=== PATIENT | female | born 1940 | race Caucasian/White ===

== ENCOUNTER → 2016-12-16 | Outpatient (CLI) | payer OTHER ==
--- NOTE | 2016-12-17 14:11 | MAMMOGRAPHY REPORT ---
BILATERAL DIGITAL SCREENING MAMMOGRAM TOMOSYNTHESIS WITH CAD: 12/16/2016 CLINICAL HISTORY: Asymptomatic. Personal history of breast cancer. TECHNIQUE: Breast tomosynthesis in addition to standard 2D mammography was performed. Current study was also evaluated with a Computer Aided Detection (CAD) system. COMPARISON: Comparison is made to exams dated: 10/27/2015 mammogram, 10/24/2014 mammogram, 10/10/2013 ma mmogram, 10/09/2012 mammogram, 10/05/2011 mammogram, and 10/02/2010 mammogram. BREAST COMPOSITION: There are scattered areas of fibroglandular density in both breasts. FINDINGS: There is a nodular 4 mm focal asymmetry within the left upper outer quadrant, for which sp ot compression tomosynthesis views and possible breast ultrasound are recommended for further evaluat ion. Additionally, there are calcifications within the left superior breast for which magnification views are recommended for further evaluation. The remainder of both breasts are stable compared to prior exams, without suspicious masses, calcific ations, or areas of architectural distortion noted. There are stable postsurgical changes in the rig ht upper outer quadrant from prior lumpectomy, including stable density and architectural distortion at the lumpectomy bed. Other scattered bilateral benign-appearing calcifications are noted. IMPRESSION: ACR BI-RADS CATEGORY 0: INCOMPLETE EVALUATION: NEED ADDITIONAL IMAGING EVALUATION Left breast focal asymmetry and left breast calcifications, for which additional imaging evaluation i s recommended. The patient will be called to schedule an appointment. Approximately 10% of breast cancers are not detected with mammography. A negative mammographic report should not delay biopsy if a clinically suggestive mass is present. Xuan Moya M.D. ah/:12/16/2016 16:51:34 Supervisor Furnace Room: Elan BERNAL(Elfego)(M), [facility] letter sent: [facility] 0 BI-RADS Code: ACR BI-RADS Category 0: Incomplete Evaluation: Need Additional Imaging Evaluation
== END | disposition home or self-care (01) ==
LOC: C.MAMM 13:24
PROVIDERS: ATTEND Internal Medicine
DX: Z12.31 Encounter for screening mammogram for malignant neoplasm of breast (principal); Z85.3 Personal history of malignant neoplasm of breast; N64.89 Other specified disorders of breast; R92.1 Mammographic calcification found on diagnostic imaging of breast

== ENCOUNTER → 2016-12-16 | Outpatient (CLI) | payer OTHER ==
[2016-12-16 13:01] LABS: ALT/SGPT 37 U/L (12-78); AST/SGOT 21 U/L (15-37); BLOOD UREA NITROGEN 12 mg/dl (7-18); BUN/CREATININE RATIO 15.7 (10-20); CALCIUM 9.4 mg/dl (8.5-10.1); CARBON DIOXIDE 29 mmol/L (21-32); CHLORIDE 100 mmol/L (98-107); CHOLESTEROL 204 mg/dl (0-200); CREATININE 0.76 mg/dl (0.60-1.20); GLUCOSE 103 mg/dl (70-99); POTASSIUM 3.5 mmol/L (3.5-5.1); SODIUM 135 mmol/L (136-145); TRIGLYCERIDES 123 mg/dl (0-150); VERY LOW DENSITY LIPOPROT CALC 25 mg/dl
[2016-12-16 13:04] LABS: ALKALINE PHOSPHATASE 74 U/L (45-117); CHOLESTEROL/HDL RATIO 2.3; HDL CHOLESTEROL 87 mg/dl; LDL CHOLESTEROL CALCULATED 92 mg/dl
== END | disposition home or self-care (01) ==
LOC: C.LAB1850 11:45
PROVIDERS: ATTEND Physician Assistant
DX: E78.5 Hyperlipidemia, unspecified (principal)

== ENCOUNTER → 2016-12-27 | Outpatient (CLI) | payer OTHER ==
--- NOTE | 2016-12-27 13:35 | MAMMOGRAPHY REPORT ---
UNILATERAL LEFT DIGITAL DIAGNOSTIC MAMMOGRAM TOMOSYNTHESIS AND TARGETED LEFT ULTRASOUND: 12/27/2016 CLINICAL HISTORY: 76-year-old woman with a personal history of right breast cancer diagnosed in 1992, called back from screening mammography in the left breast for medial microcalcifications and a later al focal asymmetry. TECHNIQUE: Spot magnification the left cc and ML views, spot compression 2-D and tomosynthesis left cc and ML views were obtained. COMPARISON: Comparison is made to exams dated: 12/16/2016 mammogram - [facility], 10/27/2015 mammogram, 10/24/2014 mammogram, 10/09/2012 mammogram, and 10/02/2010 mammogram. BREAST COMPOSITION: There are scattered areas of fibroglandular density in the left breast. FINDINGS: There are several faint groupings of punctate microcalcifications in the medial, middle an d posterior one third of the breast. These are thought to project superiorly based on the spot magni fication ML view. There are also mild vascular calcifications of the left breast. When comparing th e current spot magnification views to prior available mammograms, a few of the faint groupings of pun ctate microcalcifications in the medial, posterior breast are new compared to prior mammograms, more medial/middle one third calcifications appear stable dating back to at least 10/10/2013 and likely , therefore likely benign. The new microcalcifications in the posterior breast are indetermi peewee, warranting definitive characterization with a stereotactic guided biopsy. The spot compression tomosynthesis views of the left breast demonstrate a 5.0 x 3.3 mm nodular asymme try in the lateral, middle one third of the breast on CC tomosynthesis slice 49/74. This is not as w ell seen on the spot compression MLO view but thought to project superiorly given the initial MLO vie w and tomosynthesis localizer bar on the CC view. Additional evaluation with ultrasound was performe d in the lateral left breast. Targeted ultrasound performed at the lateral left breast demonstrates a few mixed echogenicity ill-de fined hypoechoic nodular areas in the 5:00 axis, 3 cm from the nipple, measuring 5.4 x 3.1 x 4.5 mm, and 4:00 axis, 1 cm from the nipple measuring 2.8 x 2.3 x 3.1 mm. However there is a more well-defin ed hypoechoic solid mass with microlobulated margins in the 12:30 left breast, 3 cm from the nipple, measuring 4.1 x 2.9 x 2.3 mm. This well-defined solid masses thought to correlate with the mammogra phic finding and is indeterminate. Definitive characterization with ultrasound-guided core biopsy is recommended. IMPRESSION: ACR BI-RADS CATEGORY 4: SUSPICIOUS, TARGETED ULTRASOUND ACR BI-RADS CATEGORY 4: SUSPICIO US 1. Ultrasound-guided core biopsy is recommended for an indeterminate 4.1 mm solid microlobulated mas s in the 12:30 left breast, thought to correlate with a focal mammographic asymmetry. 2. Stereotactic guided biopsy is recommended for a new grouping of punctate microcalcifications in t he medial posterior left breast. 3. Pending pathology results from the ultrasound-guided and stereotactic guided left breast biopsies , further recommendations will be made regarding ill-defined mixed echogenicity hypoechoic areas in t he 4:00 and 5:00 axes of the left breast, also seen on ultrasound which could simply represent hetero geneous glandular tissue. These results and recommendations were discussed with the patient at the time of the exam. She tenta tively scheduled the left breast biopsies prior to leaving our department. Approximately 10% of breast cancers are not detected with mammography. A negative mammographic report should not delay biopsy if a clinically suggestive mass is present. Estefanía Greco M.D. ay/:12/27/2016 12:52:51 Director Of Diversity And Inclusion: Ambar FELICIANO)(Evelin), [facility] letter sent: Abnormal 4/5 BI-RADS Code: ACR BI-RADS Category 4: Suspicious Ultrasound BI-RADS: ACR BI-RADS Category 4: Suspici ous
== END | disposition home or self-care (01) ==
LOC: C.MAMM 08:52
PROVIDERS: ATTEND Internal Medicine
DX: R92.0 Mammographic microcalcification found on diagnostic imaging of breast (principal); N63.20 Unspecified lump in the left breast, unspecified quadrant

== ENCOUNTER → 2017-01-05 | Outpatient (CLI) | payer OTHER ==
--- NOTE | 2017-01-05 10:24 | Discharge Instructions ---
Discharge Instructions Procedure Procedure Date: Jan 05, 2017. Reason for visit: Left Calc/Core Bx Left Mass. Discharge Discharge Date: Jan 05, 2017. Discharge Diagnosis: post left breast breast ultrasound guided core biopsy of a mass in the 12:30 breast and calcifications in the superior breast Medications Restart Stopped Medication(s): May restart Aspirin tomorrow Instructions Activity Recommendations: Additional Limitations (see below) Return to School/Work: no limitations Recommended Home Diet: No Limitations Provider Instructions: ACTIVITY RECOMMENDATIONS: * No lifting, pushing, pulling or exercising the affected side for three days. RETURN TO SCHOOL/WORK: * You may return to work/school after the procedure, but do not perform any strenuous activities for 24 to 48 hours. MEDICATIONS: * Tylenol (two 325 mg) every four to six hours if needed for mild pain (if not allergic to Tylenol). DIET: * Resume previous diet. SPECIAL CARE INSTRUCTIONS: * Keep biopsy site dry for 24 hours. May shower after 24 hours, but do not soak (bathe) incision. * May remove Tegaderm (plastic patch) tomorrow AFTER showering. * Leave the steri-strips on for one week. Allow the steri-strips to fall off by themselves. If not off after one week, you may remove them. You may place a Bandaid crosswise over the strips, if desired. * Apply ice 10 minutes on and 10 minutes off as needed. * Wear a bra at bedtime to sleep more comfortably for 2-3 days. * Your referring physician should have the results after approximately 5 to 7 business days. * Call for unusual bleeding, fever, drainage, etc or if you have any questions call [phone] during normal business hours or after hours call Dr Greco, . FOLLOW UP VISIT: Follow-up with Referring Physician as scheduled. Simone Ewing Recommendations: Call your doctor if: * Temperature above 101 degrees * Pain not relieved by pain medicine ordered * There is increased drainage or redness from any incision * You have any unanswered questions or concerns. Your Doctors Instructions noted above were prepared by provider Estefanía Greco. Patient Signature Section: Patient Instructions Signature Page Janice Duncan Patient (or Guardian) Signature/Date: I have read and understand the instructions given to me by my caregivers. Caregiver/RN/Doctor Signature/Date: The above-named patient and/or guardian has received patient instructions on this date. + Original Patient Signature Page (only) stays with chart. Please make copy for patient.
--- NOTE | 2017-01-05 15:30 | MAMMOGRAPHY REPORT ---
THIS REPORT HAS BEEN AMENDED. STEREOTACTIC GUIDED BIOPSY LEFT BREAST: 01/05/2017 CLINICAL HISTORY: Indeterminate cluster of punctate microcalcifications in the approximate 11:00 post erior left breast. Patient presents for stereotactic biopsy. An ultrasound core biopsy was performe d during the same appointment for an indeterminate solid mass in the 12:30 left breast. COMPARISON: Comparison is made to exams dated: 12/27/2016 mammogram, 12/27/2016 ultrasound, 12/17/19 17 mammogram - [facility], 10/27/2015 mammogram, 10/24/2014 mammogram, and 10/10/2013 m ammogram. PATIENT CONSENT: After explaining the risks, benefits and alternatives of the procedure to the patien t, informed consent was obtained both verbally and in writing. Specific risks include: Bleeding, inf ection, puncture of adjacent structure, pain, nontarget biopsy, sampling error, metal allergy and med ication reaction. PROCEDURE DESCRIPTION: A time-out was performed and the left breast was confirmed as the site of biop sy. The patient was placed prone on the stereotactic biopsy table and the breast was placed in CC fro m above compression. A admission nurse image was obtained that demonstrated the clustered microcalcifications i n question. They are amenable to sterotactic biopsy. Then +15 and -15 stereo pair images were obta ined. The calcifications were targeted utilizing the coordinates obtained by the computer. The skin was prepped with Betadine. 1% Lidocaine with and without epinipherine was administered as local anest hesia. A small skin incision was made. Through the incision, the needle was inserted to the depth de termined by the computer. 9 samples were obtained using a [employer] 9-gauge vacuum-assisted biopsy device. The specimen radiograph demonstrated several dermatology sales representative microcalcifications, therefore, a metallic marker was placed at the biopsy site. There was no immediate complication. Hemostasis was a chieved after several minutes of manual compression. The samples were sent to pathology in a single appropriately labeled containers. Postprocedure CC and ML views of the left breast were obtained. There is a new dumbbell-shaped biop sy marker clip in the approximate 11:30 posterior left breast, denoting the site of the stereotactic biopsy. A ribbon-shaped biopsy marker clip is seen in the 12:30 to 1:00 anterior left breast, denoti ng the site of the biopsied mass seen on ultrasound. There is increased density in the superior and medial left breast, likely representing a combination of lidocaine administration and small amount of hematoma. No large focal area of postbiopsy hematoma is identified. IMPRESSION: STEREOTACTIC GUIDED BIOPSY 1. Status post left breast stereotactic guided biopsy of an indeterminate clustered microcalcificati ons in the 11:0011:30 posterior left breast, with a dumbbell shaped biopsy marker placed at the site . 2. An ultrasound guided core biopsy was performed during the same appointment for an indeterminate s olid appearing mass in the 12:30 left breast and a ribbon-shaped biopsy marker clip was placed at prashanth t site. The patient will receive notification of the biopsy results from referring physician. Estefanía Greco M.D. ay/:01/05/2017 13:47:30 Attending Technologist: Serenity FELICIANO)(Evelin), [facility] Garment Cutter: Dr. Estefanía Greco, [facility] AMENDMENT: 01/10/2017 Estefanía Greco M.D. The pathology result from the stereotactic guided biopsy of a small cluster of microcalcifications in the approximate 11:00 to 11:30 left breast yielded atypical ductal hyperplasia (ADH), columnar cell hyperplasia, microcalcifications associated with benign ductal elements. Negative for invasive carci noma. The pathology results are concordant with the imaging appearance. Pathology results from an ultrasound-guided core biopsy of a small 4 mm hypoechoic solid mass in the 12:30 left breast yielded infiltrating ductal carcinoma. Tumor measures up to 0.3 cm on core biopsy. [place] grade 1 of 3. The pathology results are concordant with the imaging appearance. Given the personal history of remote right-sided breast cancer and new findings of infiltrating cance r as well as atypia in the left breast, recommend further evaluation with a breast MRI prior to defin itive treatment of the left breast. There are also a few other very subtle groupings of microcalcifi cations in the left breast. Pending MRI results, patient may need additional spot magnification view s and possible stereotactic biopsy. letter sent: [facility] 0
--- NOTE | 2017-01-05 15:32 | MAMMOGRAPHY REPORT ---
UNILATERAL LEFT DIGITAL DIAGNOSTIC MAMMOGRAM TOMOSYNTHESIS: 01/05/2017 CLINICAL HISTORY: Status post stereotactic biopsy of a small cluster of punctate microcalcifications in the upper inner quadrant versus 12:00 left breast, and ultrasound guided core biopsy of an indeter minate solid mass in the 12:30 left breast identified on ultrasound. Please refer to the reports from left breast ultrasound-guided biopsy and left breast stereotactic bi opsy performed at the same time for full detail. IMPRESSION: POST PROCEDURE IMAGING FOR MARKER PLACEMENT Please refer to the reports from left breast ultrasound-guided biopsy and left breast stereotactic bi opsy performed at the same time for full detail. Approximately 10% of breast cancers are not detected with mammography. A negative mammographic report should not delay biopsy if a clinically suggestive mass is present. Estefanía Greco M.D. ay/:01/05/2017 10:28:48 Risk Compliance Manager: Serenity BERNAL(Elfego)(M), [facility] BI-RADS Code: Post Procedure Imaging For Marker Placement
--- NOTE | 2017-01-06 07:44 | MAMMOGRAPHY REPORT ---
ULTRASOUND GUIDED BIOPSY LEFT BREAST: 01/05/2017 CLINICAL HISTORY: Indeterminate 4 mm hypoechoic solid appearing mass identified in the 12:30 left martinez ast, thought to correlate with a newly visualized mammographic mass. Patient presents for ultrasound -guided core biopsy. A stereotactic guided biopsy was also performed for microcalcifications in the left breast during the same appointment and please refer to a separate report for full detail. Pedrito caceres has a history of remote right breast cancer. COMPARISON: Comparison is made to exams dated: 12/27/2016 mammogram, 12/27/2016 ultrasound, 12/17/19 17 mammogram - [facility], 10/27/2015 mammogram, 10/24/2014 mammogram, and 10/10/2013 m ammogram. PATIENT CONSENT: The procedure, risks and benefits were discussed with the patient and informed conse nt was obtained both verbally and in writing. Specific risks to this procedure include: bleeding, in fection, puncture of adjacent structure, nontarget biopsy, sampling error, pain, metal allergy and me dication reaction. PROCEDURE DESCRIPTION: A time out was performed and the left breast was agreed as the site of biopsy. The skin was prepped and draped in the usual sterile fashion. The 4 mm solid mass in the 12:30 left breast was chosen as the target for biopsy. Subcutaneous and intraparenchymal 1% buffered lidocaine, with and without epinephrine, was administered as local anesthesia. A skin incision was made. Throug h the incision, 4 samples were taken with a 14 gauge Achieve biopsy device. A ribbon shaped metallic marker was placed at the biopsy site. Hemostasis was achieved after manual compression. The patient t olerated the procedure well and there was no immediate complication. The samples were sent to the pa thology department in an appropriately labeled container. Postprocedure left cc and ML tomosynthesis images were obtained. A new ribbon-shaped biopsy marker c lip is identified in the 12:30 to 1:00 anterior left breast, aligning with the focal mammographic asy mmetry versus mammographic mass in question. A dumbbell shaped metallic biopsy marker and small amou nt of wispy hematoma in the medial left breast is also seen at the site of stereotactic biopsy perfor med during the same appointment. IMPRESSION: ULTRASOUND GUIDED BIOPSY 1. Status post ultrasound-guided core biopsy of a small, 4 mm solid-appearing mass in the 12:30 to 1 :00 left breast, with ribbon-shaped biopsy marker clip placed at the site. 2. Stereotactic guided biopsy was also performed in the approximate 12:00 left breast during the [facility] e appointment. Please refer to a separate report for full detail. The patient will receive notification of the biopsy results from her referring physician. Estefanía Greco M.D. ay/:01/05/2017 16:56:43 Attending Technologist: Serenity BERNAL(Elfego)(M), [facility] Sulfide Head Operator: Dr. Estefanía Greco, [facility]
== END | disposition home or self-care (01) ==
LOC: C.MAMM 08:48
PROVIDERS: ATTEND Internal Medicine
DX: N63.20 Unspecified lump in the left breast, unspecified quadrant (principal); R92.0 Mammographic microcalcification found on diagnostic imaging of breast; C50.912 Malignant neoplasm of unspecified site of left female breast; N60.92 Unspecified benign mammary dysplasia of left breast

== ENCOUNTER → 2017-01-31 | Outpatient (CLI) | payer OTHER ==
[~2017-01-31] MED LIST: ASPI81TA28 PO; ATOR-26 PO; BISO10TA14 PO; CHOL2000 PO; COEN100C7 PO; GLUC10007 PO; HYDR12.55 PO; MULT-506 PO; OMEG10007 PO; SPECCAP4 PO; TURM500C2 PO
--- NOTE | 2017-01-31 11:44 | DIAGNOSTIC IMAGING REPORT ---
PET/CT CLINICAL HISTORY: Bilateral breast cancer. COMPARISON STUDY: No priors. TECHNIQUE: One hour following the IV administration of 14.91 mCi of F-18 FDG, PET/CT examination was performed from the orbital meatal line through the bony pelvis. Noncontrast CT is performed for the purposes of anatomic correlation and attenuation correction. Note that this does not reflect a diagnostic CT examination. Images were reviewed on a separate [employer] independent workstation. Fused images were obtained. Standard uptake values reported are maximum values within the region of interest expressed in gm/mL. FINDINGS: PET FINDINGS: Head and neck: There is expected physiologic activity within the visualized brain parenchyma at the skull base and the salivary glands. Thorax: Evaluation of the thorax demonstrates expected physiologic myocardial activity. There is near complete fatty atrophy of the breast tissue. A small focus of scarring is suggested in the right breast on image #69. This was not demonstrably FDG avid. No FDG avid mass lesion is identified in either breast. There are no FDG avid or pathologically enlarged axillary or internal mammary lymph nodes. Abdomen and pelvis: There is expected activity within the liver, spleen, kidneys, renal collecting system, and bladder. Low-level bowel activity is likely within physical limits. Unenhanced CT images: The partially visualized brain parenchyma the skull base is normal in appearance. The visualized paranasal sinuses are clear. The mastoid air cells are well pneumatized. The salivary and thyroid glands are within normal limits. No cervical lymphadenopathy is seen. The thoracic aorta is normal in caliber. The heart is top normal in size and there is trace pericardial fluid. A small hiatal hernia is noted. No airspace consolidation or pleural effusion is identified. No concerning pulmonary lesion is seen. No mediastinal, hilar, or axillary lymphadenopathy is identified. A 1.8 cm cyst is identified in the right hepatic lobe. The unenhanced liver is otherwise normal in appearance. The unenhanced gallbladder, spleen, adrenal glands, pancreas, and kidneys are grossly normal. Excreted contrast is present within the renal collecting system bilaterally. The abdominal aorta is normal in caliber noting scattered foci of atherosclerotic calcification. There is no bowel obstruction. A duodenal diverticulum is incidentally noted. Mild colonic fecal retention is observed. There is no abdominal, pelvic, or inguinal lymphadenopathy. The bladder is partially decompressed and filled with excreted contrast. Calcified uterine fibroids are observed. No adnexal lesion is seen. The skeletal structures are osteopenic. No lytic or blastic lesion is identified. IMPRESSION: 1. There is no evidence of FDG avid metastatic disease. 2. No FDG avid lesion is identified in either breast. 3. Scarring is suggested in the right breast. Correlation with the patient's surgical history will be required. 4. The lungs are clear. Electronically signed by: Bernardo Garces M.D. 01/31/2017 11:42 AM Dictated Date/Time: 01/31/2017 11:11 AM
== END | disposition home or self-care (01) ==
LOC: C.PET 08:36
PROVIDERS: ATTEND Internal Medicine Hematology & Oncology
DX: C50.012 Malignant neoplasm of nipple and areola, left female breast (principal)

== ENCOUNTER → 2017-01-31 | Outpatient (CLI) | payer OTHER ==
[~2017-01-31] MED LIST changes: +GADAVIST IV PRN
--- NOTE | 2017-02-01 15:09 | MAMMOGRAPHY REPORT ---
BREAST MRI OF BOTH BREASTS : 01/31/2017 CLINICAL HISTORY: 76-year-old woman with a remote history of right breast cancer status post breast c onservation treatment, recently diagnosed left breast infiltrating ductal carcinoma and atypical duct al hyperplasia on ultrasound-guided and stereotactic guided core needle biopsies. Patient presents f or preoperative assessment of both breasts. COMPARISON: Comparison is made to exams dated: 01/05/2017 ultrasound biopsy, 01/05/2017 stereotactic b iopsy, 12/27/2016 mammogram, 12/27/2016 ultrasound, 12/16/2016 mammogram - [facility], and 10/27/2015 mammogram. TECHNIQUE: Using a 1.5 Mary magnet and dedicated breast coil, multisequence axial images were obtain ed through the breasts. After uneventful IV administration of 8.5 mL of Gadavist, dynamic multiphase contrast-enhanced axial images, and sagittal postcontrast were obtained. Temporal subtraction axial images and 3-D MIP images are provided. Everything was then reviewed on a 3-D workstation, [employer]. FINDINGS: Right breast: There is no significant background parenchymal enhancement. There is expected nonenhan cing architectural distortion in the upper outer posterior right breast at the site of prior lumpecto my. There is a single focal area of linear non-mass enhancement in the right inferior anterior breas t approximate 7:00 axis measuring 18 mm in AP dimension (sagittal page 113/140, axial page 91-92/116) , with associated persistent kinetics and no significant associated T2 signal hyperintensity. A slig htly irregular focus of enhancement is seen in the left 11:00 anterior right breast measuring 4.4 x 3 .0 x 5.5 mm (sagittal page 110/140, axial page 75/116), with associated persistent and plateau kineti cs. No significant T2 signal hyperintensity. Given that these are the only 2 enhancing lesions in t he right breast, targeted second look ultrasound with possible ultrasound-guided core biopsy is recom mended. The right breast retromammary fat is intact. No suspicious right axillary lymphadenopathy. Left breast: There is mild background parenchymal enhancement of the left breast, with several conspi cuous enhancing foci versus masses. There is susceptibility artifact from biopsy marker clips in the 12:00 posterior left breast denoting the biopsy-proven atypia, and in the 1:00 anterior left breast, denoting the biopsy-proven infiltrative ductal carcinoma (it should be noted this was documented as 12:30 on ultrasound and ultrasound-guided core biopsy images). A residual irregular enhancing mass i s seen at this site measuring 4.2 x 4.9 mm. No associated T2 hyperintensity and this mass demonstrat es mixed persistent and plateau kinetics (sagittal page 26/140, axial page 56/116). There is a simil ar appearing small irregular enhancing mass in the upper inner approximate 11:00 middle one third of the left breast measuring 3.3 x 3.4 mm. This demonstrates washout kinetics and is suspicious for mal ignancy. Targeted second look ultrasound with possible ultrasound-guided core biopsy is recommended. Other small enhancing foci are identified in the posterior retroareolar versus 9:00 posterior left breast measuring 5.6 x 3.3 mm (sagittal page 44/140, axial page 75/116), which demonstrates plateau k inetics and no significant T2 hyperintensity. Also an enhancing focus in the 3:00 middle to posterio r left breast (sagittal page 20/140, axial page 75/116), which demonstrates persistent kinetics and slight T2 hyperintensity which could represent fibrocystic change. It is unclear if this lesion may possibly correlate with focal hypoechoic areas identified in the 4:00 and 5:00 axes of the left breas t on prior diagnostic ultrasound dated 12/27/2016. No focal area of skin thickening or nipple retrac tion is appreciated. The retromammary fat is intact. No suspicious left axillary, subpectoral or in ternal mammary lymphadenopathy. IMPRESSION: ACR BI-RADS CATEGORY 4: SUSPICIOUS 1. Expected nonenhancing scar tissue in the area of prior lumpectomy in the upper outer posterior ri ght breast. 2. Susceptibility artifact from biopsy marker clips in the 12:00 posterior and 1:00 anterior left br east, denoting site of recent biopsy proven atypia and invasive carcinoma. 3. A 3 mm irregular enhancing focus/mass in the 11:00 middle one third of the left breast, that is s imilar to the recently biopsy-proven carcinoma in the 1:00 left breast that is suspicious for another area of invasive carcinoma/multicentric disease. Targeted second look ultrasound with possible ultr asound-guided core biopsy is recommended. 4. There are other conspicuous enhancing foci versus masses in the left breast retroareolar posterio r and 3:00 axes for which targeted second look ultrasound is recommended. It is unclear if the lesio n identified in the 3:00 axis may possibly correlate with the hypoechoic areas previously identified in either the left breast 4:00 and 5:00 axes seen targeted ultrasound performed on 12/27/2016. 5. 18 mm focal linear non-mass enhancement in the 7:00 anterior right breast and irregular enhancing focus in the 11:00 anterior right breast for which targeted second look ultrasound and possible ultr asound-guided core biopsy is recommended. (One hour appointment) The patient will be called to schedule an appointment. Estefanía Greco M.D. ay/:01/31/2017 21:08:00 Theatrical Agent: production painter, [facility] letter sent: Abnormal 4/5 BI-RADS Code: ACR BI-RADS Category 4: Suspicious
== END | disposition home or self-care (01) ==
LOC: C.MRI 07:03
PROVIDERS: ATTEND Surgery
DX: C50.912 Malignant neoplasm of unspecified site of left female breast (principal)

== ENCOUNTER → 2017-02-09 | Outpatient (CLI) | payer OTHER ==
[2017-01-24 09:41] VITALS: Ht 165.1 cm; Wt 83.2 kg
--- NOTE | 2017-01-24 10:13 | PAT Medication Instructions ---
Service Date Jan 24, 2017. Current Home Medication List Aspirin (Aspirin Ec), 81 MG PO HS Atorvastatin (Lipitor), 80 MG PO HS Bisoprolol/Hctz (Ziac 10MG/6.25MG), 1 TAB PO HS Cholecalciferol (Vitamin D3), 1 CAP PO Q2D Coenzyme Q10 (Ubidecarenone) (Coq10), 1 TAB PO HS Fish Oil (Cuney-3), 1 CAP PO HS Glucosamine Sulfate (Glucosamine), 1,500 MG PO HS Hydrochlorothiazide (Hydrochlorothiazide), 1 TAB PO HS Multivitamin (Multivitamin), 1 TAB PO HS Specialty Vitamins Products (Collagen Ultra), 1 CAP PO HS Turmeric (Curcuma Longa) (Curcumin 95), Unknown Dose PO HS Medication Instructions For Your Scheduled Surgery - Hold the following medications 2 weeks prior to surgery (stop taking 01/26): Specialty Vitamins Products (Collagen Ultra), 1 CAP PO HS Turmeric (Curcuma Longa) (Curcumin 95), Unknown Dose PO HS Coenzyme Q10 (Ubidecarenone) (Coq10), 1 TAB PO HS Fish Oil (Cuney-3), 1 CAP PO HS Glucosamine Sulfate (Glucosamine), 1,500 MG PO HS - Hold the following medications 7 days prior to surgery per your surgeon's instructions: Aspirin (Aspirin Ec), 81 MG PO HS - Take the following medications as scheduled the night before surgery: Hydrochlorothiazide (Hydrochlorothiazide), 1 TAB PO HS Multivitamin (Multivitamin), 1 TAB PO HS Cholecalciferol (Vitamin D3), 1 CAP PO Q2D Bisoprolol/Hctz (Ziac 10MG/6.25MG), 1 TAB PO HS Atorvastatin (Lipitor), 80 MG PO HS OTHERWISE NOTHING TO EAT OR DRINK AFTER MIDNIGHT If you have any questions please call us at [phone] or [phone] or [phone]
[2017-01-24 10:36] LABS: BASO % 0.4 %; BASO ABS # 0.02 K/uL (0-0.2); COMPLETE YES; EOS % 1.6 %; HEMATOCRIT 37.5 % (37-47); IG% 0.2 %; LYMPH ABS # 1.19 K/uL (1.2-3.4); MEAN CELL VOLUME 94.7 fL (80-100); MEAN CORPUSCULAR HEMOGLOBIN 33.1 pg (25-34); MEAN CORPUSCULAR HGB CONC 34.9 g/dl (32-36); MONO % 6.7 %; NEUT % 67.1 %; PLATELET COUNT 277 K/uL (130-400); RED BLOOD COUNT 3.96 M/uL (4.2-5.4); WHITE BLOOD COUNT 4.95 K/uL (4.8-10.8)
[2017-01-24 11:09] LABS: BUN/CREATININE RATIO 17.1 (10-20); CALCIUM 9.3 mg/dl (8.5-10.1); CREATININE 0.79 mg/dl (0.60-1.20); POTASSIUM 3.8 mmol/L (3.5-5.1)
[~2017-02-09] VITALS: Ht 165.1 cm; Wt 83.2 kg
[~2017-02-09] MED LIST changes: +CEFAZOLIN 2000MG IV PUSH 10 ML IV SCH; -GADAVIST IV PRN; +LACTATED RINGER'S 1000ML 1,000 ML IV SCH
--- NOTE | 2017-02-09 09:01 | Discharge Instructions ---
Discharge Instructions Procedure Procedure Date: Feb 09, 2017. Reason for visit: 2ND Look Us/Poss Bilat Breast Bx's. Discharge Discharge Date: Feb 09, 2017. Discharge Diagnosis: post right breast ultrasound guided core biopsy Instructions Activity Recommendations: Additional Limitations (see below) Return to School/Work: no limitations Recommended Home Diet: No Limitations Provider Instructions: ACTIVITY RECOMMENDATIONS: * No lifting, pushing, pulling or exercising the affected side for three days. RETURN TO SCHOOL/WORK: * You may return to work/school after the procedure, but do not perform any strenuous activities for 24 to 48 hours. MEDICATIONS: * Tylenol (two 325 mg) every four to six hours if needed for mild pain (if not allergic to Tylenol). DIET: * Resume previous diet. SPECIAL CARE INSTRUCTIONS: * Keep biopsy site dry for 24 hours. May shower after 24 hours, but do not soak (bathe) incision. * May remove Tegaderm (plastic patch) tomorrow AFTER showering. * Leave the steri-strips on for one week. Allow the steri-strips to fall off by themselves. If not off after one week, you may remove them. You may place a Bandaid crosswise over the strips, if desired. * Apply ice 10 minutes on and 10 minutes off as needed. * Wear a bra at bedtime to sleep more comfortably for 2-3 days. * Your referring physician should have the results after approximately 5 to 7 business days. * Call for unusual bleeding, fever, drainage, etc or if you have any questions call [phone] during normal business hours or after hours call Dr Greco, . FOLLOW UP VISIT: Follow-up with Referring Physician as scheduled. Allergies Coded Allergies: Lisinopril (Verified Allergy, Unknown, cough, 01/24/17) Terbinafine (Verified Allergy, Unknown, rash, 01/24/17) Simone Ewing Recommendations: Call your doctor if: * Temperature above 101 degrees * Pain not relieved by pain medicine ordered * There is increased drainage or redness from any incision * You have any unanswered questions or concerns. Your Doctors Instructions noted above were prepared by provider Estefanía Greco. Patient Signature Section: Patient Instructions Signature Page Janice Duncan Patient (or Guardian) Signature/Date: I have read and understand the instructions given to me by my caregivers. Caregiver/RN/Doctor Signature/Date: The above-named patient and/or guardian has received patient instructions on this date. + Original Patient Signature Page (only) stays with chart. Please make copy for patient.
--- NOTE | 2017-02-09 15:18 | MAMMOGRAPHY REPORT ---
ULTRASOUND OF BOTH BREASTS: 02/09/2017 CLINICAL HISTORY: 77 year old woman with a history of remote right breast carcinoma and recently diag nosed left breast invasive carcinoma in the 12:30 axis and atypia in the 11:30 to 12:00 breast. She underwent breast MRI prior to definitive surgical treatment and approximately 5 small enhancing joshua s versus foci were identified in both breasts. The patient presents for second look ultrasound of todd th breasts, with possible ultrasound-guided core biopsy. COMPARISON: Comparison is made to exams dated: 01/31/2017 breast MRI, 01/05/2017 mammogram, 01/05/2017 ultrasound biopsy, 01/05/2017 stereotactic biopsy, and 12/27/2016 mammogram - [facility]. FINDINGS: Targeted ultrasound was performed throughout the entire left breast, and in the right hansa st periareolar and retroareolar axis, to assess for the non-mass, mass and foci of enhancement seen o n MRI. In the left breast on ultrasound, a biopsy tract is seen in the 11:00 axis, 8 cm from the nipple, wit h hypoechoic area noted in the skin extending in a linear fashion deeper into the breast parenchyma. Just medial to this biopsy tract, scanning was performed to assess for the tiny suspicious enhancing mass seen on MRI. However, no discrete focal lesion is identified. Then additional scanning was pe rformed throughout the remainder of the left breast. Again seen is a small hypoechoic lesion in the 4:00 left breast, 1 cm from the nipple measuring 2.6 x 2.2 x 3.7 mm. It is unclear if this could rep resent stromal fibrosis or a discrete mass. The area previously identified in the 5:00 left breast h as the current appearance of normal fibrocartilage other tissue on today's ultrasound. No other disc rete solid or cystic mass is seen in the left breast. Ultrasound scanning in the right breast demonstrates a hypoechoic to anechoic solid versus cystic mas s in the 11:00 periareolar right breast measuring 2.5 x 2.9 x 2.5 mm. It is unclear if this could po ssibly correlate with the small 4 mm enhancing focus in the superior subareolar right breast seen on recent MRI and further evaluation with ultrasound guided core biopsy is recommended. Throughout the remainder of the periareolar and 6:00 right breast, no other discrete solid or cystic mass or textura l difference appreciated in the tissue to correlate with the MRI finding. IMPRESSION: ACR BI-RADS CATEGORY 4: SUSPICIOUS - FOLLOW-UP RECOMMENDED 1. There was no sonographic correlate for the 3 areas of enhancement identified on MRI within the le ft breast. These lesions remain indeterminate and MRI guided biopsy of the 2 medial lesions is recom mended. 2. A small 3 mm hypoechoic mass was identified in the 11:00 periareolar right breast on ultrasound, which could possibly correlate with one of the MRI findings in the right breast. Ultrasound-guided c ore needle biopsy is recommended. This was subsequently performed during the same appointment and pl ease refer to a separate report for full detail. 3. The other subtle area of linear non-mass enhancement in the 6:00 to 7:00 right breast seen on MRI has no sonographic correlate and may represent benign fibroglandular tissue. Consider a follow-up b reast MRI in 6 months pending pathology results in both breasts, and surgical treatment. These results and recommendations were discussed with the patient at the time of the exam. Estefanía Greco M.D. ay/:02/09/2017 09:08:53 Metal Roofer: Dr. Estefanía Greco, [facility] letter sent: Abnormal 4/5 BI-RADS Code: ACR BI-RADS Category 4: Suspicious
--- NOTE | 2017-02-10 07:53 | MAMMOGRAPHY REPORT ---
ULTRASOUND GUIDED BIOPSY RIGHT BREAST: 02/09/2017 CLINICAL HISTORY: 77-year-old woman with a remote history of right breast cancer and newly diagnosed left breast invasive carcinoma and separate area of atypia. She presents for second look ultrasound in both breasts for small enhancing foci/masses and non-mass enhancement seen on recent breast MRI. An indeterminate hypoechoic 3 mm mass was identified in the 11:00 periareolar right breast which coul d correlate with one of the MRI findings and currently she presents for ultrasound-guided core biopsy in the right breast. COMPARISON: Comparison is made to exams dated: 01/31/2017 breast MRI, 01/05/2017 mammogram, 01/05/2017 ultrasound biopsy, 12/27/2016 mammogram, 12/27/2016 ultrasound, and 12/16/2016 mammogram - [facility]. PATIENT CONSENT: The procedure, risks and benefits were discussed with the patient and informed conse nt was obtained both verbally and in writing. Specific risks to this procedure include: bleeding, in fection, puncture of adjacent structure, nontarget biopsy, sampling error, pain, metal allergy and me dication reaction. PROCEDURE DESCRIPTION: A time out was performed and the right breast was agreed as the site of biopsy . The skin was prepped and draped in the usual sterile fashion. The 3 mm hypoechoic solid versus cyst ic mass in the 11:00 periareolar right e target for biopsy. This is thought to correlate with a smal l enhancing focus in the superior subareolar right breast on MRI. Subcutaneous and intraparenchymal 1% buffered lidocaine, with and without epinephrine, was administered as local anesthesia. A skin inc ision was made. Through the incision, 3 samples were taken with a 14 gauge Achieve biopsy device. A ribbon shaped metallic marker was placed at the biopsy site. Hemostasis was achieved after manual com pression. The patient tolerated the procedure well and there was no immediate complication. The [facility] les were sent to the pathology department in an appropriately labeled container. Postprocedure right CC and MLO views of the right breast were obtained. A new ribbon-shaped biopsy m arker clip is seen in the 11:00 anterior right breast at the site of the biopsied 3 mm hypoechoic mas s identified on recent targeted second look ultrasound. No significant postbiopsy hematoma. IMPRESSION: ULTRASOUND GUIDED BIOPSY 1. Status post ultrasound guided core biopsy of a small 3 mm hypoechoic mass in the 11:00 periareola r right breast, with biopsy marker placed at the site. 2. This mass was thought to possibly align with a small focus of enhancement seen on recent breast M RI. Other lesions described in both breasts on the MRI report were not definitely seen with targeted second look ultrasound and MRI guided biopsy is recommended of the 3 mm irregular enhancing mass in the upper inner quadrant of the left breast and could attempt MRI biopsy of another focus of enhancem ent in the medial and posterior left breast. 3. The patient tentatively scheduled the MRI guided biopsies of the left breast prior to leaving our department. The patient will receive notification of the biopsy results from her referring physician. Estefanía Greco M.D. ay/:02/09/2017 16:45:10 Automobile Upholsterer Apprentice: Serenity BERNAL(Elfego)(M), [facility]
== END | disposition home or self-care (01) ==
LOC: EDSTATUS 07:45 → C.MAMM 07:53
PROVIDERS: ATTEND Surgery
DX: R92.0 Mammographic microcalcification found on diagnostic imaging of breast (principal); N60.31 Fibrosclerosis of right breast

== ENCOUNTER → 2017-02-10 | Outpatient (CLI) | payer OTHER ==
[~2017-02-10] MED LIST changes: -CEFAZOLIN 2000MG IV PUSH 10 ML IV SCH; -LACTATED RINGER'S 1000ML 1,000 ML IV SCH
--- NOTE | 2017-02-10 17:03 | DIAGNOSTIC IMAGING REPORT ---
TWO VIEW CHEST CLINICAL HISTORY: Cough. FINDINGS: PA and lateral chest radiographs are correlated with PET/CT dated 01/31/2017. The heart is top normal for projection. The mediastinal contour is within normal limits. Nonspecific interstitial thickening is noted. There is no airspace consolidation typical for pneumonia or pleural effusion. Linear atelectasis versus scarring is present at both lung bases, left greater than right. There is no pneumothorax. The skeletal structures are osteopenic. Mild thoracic scoliosis is observed. IMPRESSION: No active disease in the chest. Electronically signed by: Bernardo Garces M.D. 02/10/2017 5:01 PM Dictated Date/Time: 02/10/2017 5:00 PM
== END | disposition home or self-care (01) ==
LOC: C.RAD1850 16:30
PROVIDERS: ATTEND Nurse Practitioner Adult Health
DX: R05 Cough (principal)

== ENCOUNTER → 2017-02-17 | Outpatient (CLI) | payer OTHER ==
[~2017-02-17] MED LIST changes: +GADAVIST IV PRN; +LIDO/EPINEPHRINE/SOD BICARB 20 ML VIAL INFIL ONE; +XYLOCAINE 1%/SOD BICARB 20 ML VIAL INFIL ONE
--- NOTE | 2017-02-17 14:08 | Discharge Instructions ---
Discharge Instructions Procedure Procedure Date: Feb 17, 2017. Reason for visit: Left Enhancing Focus. Discharge Discharge Date: Feb 17, 2017. Discharge Diagnosis: status post breast biopsies Instructions Activity Recommendations: Additional Limitations (see below) Return to School/Work: no limitations Recommended Home Diet: No Limitations Provider Instructions: ACTIVITY RECOMMENDATIONS: * No lifting, pushing, pulling or exercising the affected side for three days. RETURN TO SCHOOL/WORK: * You may return to work/school after the procedure, but do not perform any strenuous activities for 24 to 48 hours. MEDICATIONS: * Tylenol (two 325 mg) every four to six hours if needed for mild pain (if not allergic to Tylenol). DIET: * Resume previous diet. SPECIAL CARE INSTRUCTIONS: * Keep biopsy site dry for 24 hours. May shower after 24 hours, but do not soak (bathe) incision. * May remove Tegaderm (plastic patch) tomorrow AFTER showering. * Leave the steri-strips on for one week. Allow the steri-strips to fall off by themselves. If not off after one week, you may remove them. You may place a Bandaid crosswise over the strips, if desired. * Apply ice 10 minutes on and 10 minutes off as needed. * Wear a bra at bedtime to sleep more comfortably for 2-3 days. * Your referring physician should have the results after approximately 5 to 7 business days. * Call for unusual bleeding, fever, drainage, etc or if you have any questions call during normal business hours or after hours call Dr Moya, . FOLLOW UP VISIT: Follow-up with Referring Physician as scheduled. Allergies Coded Allergies: Lisinopril (Verified Allergy, Unknown, cough, 01/24/17) Terbinafine (Verified Allergy, Unknown, rash, 01/24/17) Simone Ewing Recommendations: Call your doctor if: * Temperature above 101 degrees * Pain not relieved by pain medicine ordered * There is increased drainage or redness from any incision * You have any unanswered questions or concerns. Your Doctors Instructions noted above were prepared by provider Xuan Moya. Patient Signature Section: Patient Instructions Signature Page Janice Duncan Patient (or Guardian) Signature/Date: I have read and understand the instructions given to me by my caregivers. Caregiver/RN/Doctor Signature/Date: The above-named patient and/or guardian has received patient instructions on this date. + Original Patient Signature Page (only) stays with chart. Please make copy for patient.
--- NOTE | 2017-02-18 12:57 | MAMMOGRAPHY REPORT ---
MULTIPLE MRI BIOPSIES LEFT BREAST: 02/17/2017 CLINICAL HISTORY: Two enhancing lesions within the left medial breast, one in the left upper inner qu adrant at approximately 11:00 and the other at approximately 9:00 posteriorly. Recently diagnosed le ft breast cancer. COMPARISON: Comparison is made to exams dated: 02/09/2017 ultrasound, 02/09/2017 ultrasound biopsy, breast MRI, 01/05/2017 mammogram, and [facility] Technique: Written informed consent was obtained from the patient after discussion of the procedure a s well as risks of MRI guided core needle biopsy. A preprocedural timeout was performed prior to sta rting the procedure. The patient was placed prone on a 1.5 Mary MR scanner. The medial aspect of the left breast was riky ansed with ChloraPrep. The left breast was positioned in a dedicated breast coil and MRI guidance gr id device. After localizing sequences were obtained, pre-and postcontrast axial sequences were performed which c onfirm the persistence of the enhancing lesions in the left upper inner quadrant, one at approximatel y 11:00 middle depth and the other at approximately 9:00 posterior depth. 8 mL of Gadavist IV contra st was administered. Using the images, targeting was performed using the [employer] software. The skin was prepped with Betadine through the grid and after local anesthesia was achieved, introduc er sheaths and localizing obturators were placed into both sites using a medial approach. The locati on of the obturator sheaths were confirmed with additional images. Subsequently, multiple samples were obtained from the first site, the lesion in the left 11:00 breast (labeled site "A"), using a Suros 9-gauge vacuum-assisted core biopsy device. After this, multiple s amples were obtained from the second site, the lesion in the left 9:00 breast (labeled site "B"), usi ng a Suros 9-gauge vacuum-assisted core biopsy device. Postprocedural images demonstrate expected po stbiopsy changes in the expected location of the enhancing lesions. Through the introducer sheaths, m arker clips were placed. Direct pressure was held at the biopsy sites until hemostasis was achieved . The patient tolerated the procedure without immediate complication. Mammography was obtained at the breast center after completion of the biopsy to confirm marker clip placement. Please see the separa te dictation of the exam for further details. The specimens were sent to pathology for analysis. Wo und care instructions were given to the patient. IMPRESSION: MRI BIOPSY 1. MRI guided core needle biopsy of the enhancing lesion in the left upper inner quadrant at approxi mately 11:00 (site "A"), with clip placement. 2. MRI guided core needle biopsy of the enhancing lesion in the left 9:00 posterior breast (site "B" ), with clip placement. The patient will receive pathology results from her referring provider. Xuan Moya M.D. ah/:02/17/2017 15:40:47 Dryland Farmer: senior front end developer, [facility]
--- NOTE | 2017-02-18 12:57 | MAMMOGRAPHY REPORT ---
UNILATERAL LEFT DIGITAL DIAGNOSTIC MAMMOGRAM: 02/17/2017 CLINICAL HISTORY: Status post MRI guided core needle biopsy 2. TECHNIQUE: Postprocedural left CC and ML views were obtained. COMPARISON: Comparison is made to exams dated: 02/17/2017 MRI biopsy, 02/09/2017 ultrasound, 7 ultrasound biopsy, 01/31/2017 breast MRI, 01/05/2017 mammogram, and 01/05/2017 ultrasound biopsy - [facility]. BREAST COMPOSITION: There are scattered areas of fibroglandular density in the left breast. FINDINGS: A new marker clip is seen within the left far superior breast in the expected location of the biopsie d finding in the left 11:00 breast (annotation #2). A new biopsy marker clip is seen within the left upper inner quadrant far medially in the expected location of the biopsied finding in the left 9:00 posterior breast (annotation #1). No significant postbiopsy hematoma is seen. Two biopsy marker clip s are seen within the left breast from prior biopsies. IMPRESSION: POST PROCEDURE IMAGING FOR MARKER PLACEMENT Two new biopsy marker clip status post MRI guided core needle biopsies. Pathology results are pendin g. Approximately 10% of breast cancers are not detected with mammography. A negative mammographic report should not delay biopsy if a clinically suggestive mass is present. Xuan Moya M.D. /:02/17/2017 15:43:38 Animal Impersonator: Shona BERNAL (R)(Evelin), [facility] BI-RADS Code: Post Procedure Imaging For Marker Placement
== END | disposition home or self-care (01) ==
LOC: C.MRI 12:04
PROVIDERS: ATTEND Surgery
DX: C50.912 Malignant neoplasm of unspecified site of left female breast (principal); R92.8 Other abnormal and inconclusive findings on diagnostic imaging of breast; N60.82 Other benign mammary dysplasias of left breast; D24.2 Benign neoplasm of left breast

== ENCOUNTER → 2017-03-16 | Outpatient (CLI) | payer OTHER ==
[~2017-03-16] MED LIST changes: -GADAVIST IV PRN; -LIDO/EPINEPHRINE/SOD BICARB 20 ML VIAL INFIL ONE; -XYLOCAINE 1%/SOD BICARB 20 ML VIAL INFIL ONE
[2017-03-16 16:40] LABS: BASO % 0.3 %; BASO ABS # 0.02 K/uL (0-0.2); EOS % 1.2 %; EOS ABS # 0.07 K/uL (0-0.5); HEMOGLOBIN 13.2 g/dL (12.0-16.0); IG# 0.01 K/uL (0.00-0.02); LYMPH % 23.7 %; LYMPH ABS # 1.36 K/uL (1.2-3.4); MEAN CELL VOLUME 94.3 fL (80-100); MEAN CORPUSCULAR HEMOGLOBIN 32.8 pg (25-34); MEAN CORPUSCULAR HGB CONC 34.7 g/dl (32-36); MEAN PLATELET VOLUME 9.1 fL (7.4-10.4); MONO % 8.4 %; MONO ABS # 0.48 K/uL (0.11-0.59); NEUT % 66.2 %; NEUT ABS # 3.79 K/uL (1.4-6.5); PLATELET COUNT 309 K/uL (130-400); RED CELL DISTRIBUTION WIDTH CV 13.2 % (11.5-14.5); RED CELL DISTRIBUTION WIDTH SD 45.5 fL (36.4-46.3); WHITE BLOOD COUNT 5.73 K/uL (4.8-10.8)
[2017-03-16 16:57] LABS: PTT PATIENT 25.5 SECONDS (21.0-31.0)
[2017-03-16 17:07] LABS: ALBUMIN 4.1 gm/dl (3.4-5.0); ALT/SGPT 42 U/L (12-78); AST/SGOT 25 U/L (15-37); BLOOD UREA NITROGEN 14 mg/dl (7-18); CALCIUM 9.5 mg/dl (8.5-10.1); CARBON DIOXIDE 31 mmol/L (21-32); CREATININE 0.73 mg/dl (0.60-1.20); GLUCOSE 96 mg/dl (70-99); POTASSIUM 3.7 mmol/L (3.5-5.1); SODIUM 133 mmol/L (136-145)
[2017-03-16 17:10] LABS: ALKALINE PHOSPHATASE 88 U/L (45-117); TOTAL PROTEIN 7.9 gm/dl (6.4-8.2)
== END | disposition home or self-care (01) ==
LOC: C.LAB1850 15:07
PROVIDERS: ATTEND Surgery
DX: Z01.812 Encounter for preprocedural laboratory examination (principal); C50.919 Malignant neoplasm of unspecified site of unspecified female breast

== ENCOUNTER 2017-04-06 09:53 | Observation (INO) | payer OTHER ==
[2017-03-17 13:45] VITALS: BMI 29.0
[~2017-04-06] VITALS: Ht 165.1 cm; Wt 81.4 kg
[2017-04-06] VITALS (8 sets, daily range): BP systolic 117–144; BP diastolic 71–75; PULSE 60–98; TEMP 35.9–36.9; O2SAT 67–98; Ht 165.1 cm; Wt 81.4 kg
[~2017-04-06 09:53] MED LIST changes: +ATROPINE SULFATE 0.1 MG/ML 5ML SYR IV PRN; +CEFAZOLIN 2000MG IV PUSH 10 ML IV SCH; +EpHEDrine SULFATE INJ 50 MG/ML AMP IV PRN; +FENTANYL CITRATE INJ 50 MCG/1 ML 2 ML VIAL IV PRN; +HYDROmorphone INJ 1 MG/ML SYR IV PRN; +LACTATED RINGER'S 1000ML 1,000 ML IV SCH; +ONDANSETRON INJ 2 MG/ML 2 ML VIAL IV PRN
--- NOTE | 2017-04-06 11:18 | History & Physical Bridge Note ---
H&P Re-Evaluation Bridge Note: I have examined the patient, reviewed the History & Physical and in the interval since the performance of the History & Physical I have noted the following changes of clinical significance: No changes noted
[2017-04-06] MEDS ORDERED: FENTANYL CITRATE INJ 50 MCG/1 ML 2 ML VIAL ONE (11:26)
[2017-04-06] MEDS ORDERED: LIDOCAINE HCL 2% 2 ML VIAL (20MG/ML) ONE ×2 (11:27→12:42)
[2017-04-06] MEDS ORDERED: PROPOFOL IV EMULSION 10 MG/ML 20 ML VIAL IV ONE (11:27)
[2017-04-06] MEDS ORDERED: ONDANSETRON INJ 2 MG/ML 2 ML VIAL ONE ×2 (11:27→14:51)
--- NOTE | 2017-04-06 11:42 | DIAGNOSTIC IMAGING REPORT ---
LEFT BREAST LYMPHOSCINTIGRAPHY CLINICAL HISTORY: Left breast cancer. COMPARISON STUDY: Diagnostic left mammogram February 17, 2017. PROCEDURE: The procedure, risks and benefits were discussed with the patient and informed consent was obtained. The procedure was performed by Dr. Schofield following a timeout. Skin of the left breast was prepped. A total of 0.524 mCi of Lymphoseek was injected in 5 intradermal aliquots within a left periareolar distribution at 10:30 AM on April 06, 2017. The patient tolerated the procedure well and no immediate complications were evident. No imaging was requested. IMPRESSION: Left breast lymphoscintigraphy. Electronically signed by: Dave Schofield M.D. 04/06/2017 11:41 AM Dictated Date/Time: 04/06/2017 11:40 AM
[2017-04-06] MEDS ORDERED: BUPIVACAINE 0.5 % 5 MG/1 ML MPF 30ML VIAL ONE (11:45)
[2017-04-06] MEDS ORDERED: ISOSULFAN BLUE 10 MG/ML VIAL 5 ML ONE (11:45)
[2017-04-06] MEDS ORDERED: LIDOCAINE/EPINEPHRINE 1% 20 ML VIAL ONE (11:46)
[2017-04-06] MEDS ORDERED: BUPIVACAINE 0.25% 30 ML VIAL ONE (11:47)
[2017-04-06] MEDS: CEFAZOLIN SOD 1 GM VIAL ONE ×2 (11:47→14:32)
[2017-04-06] MEDS ORDERED: BACITRACIN 50000 UNIT VIAL ONE (11:47)
[2017-04-06] MEDS ORDERED: HYDROmorphone INJ 2 MG/ML SYR/VIAL ONE (12:42)
[2017-04-06] MEDS ORDERED: ROCURONIUM BROMIDE 10 MG/ML 5 ML VIAL IV ONE (12:42)
[2017-04-06] MEDS: GENTAMICIN SULFATE 40 MG/ML 2 ML VIAL ONE ×2 (13:22→14:32)
[2017-04-06] MEDS ORDERED: EpHEDrine SULFATE 50MG/5ML SYR ONE (14:18)
[2017-04-06] MEDS ORDERED: ACETAMINOPHEN 1000 MG/100 ML IV IV ONE (14:51)
--- NOTE | 2017-04-06 15:03 | OPERATIVE REPORT ---
DATE OF OPERATION: 04/06/2017 NAME OF OPERATION: Left mastectomy with sentinel lymph node biopsy. PREOPERATIVE DIAGNOSIS: Left breast cancer. POSTOPERATIVE DIAGNOSIS: Same. STAFF SURGEON: Dr. Marcial Mojica. DIGITAL PRE PRESS OPERATOR: Toy Dunham PA-C DESCRIPTION OF PROCEDURE: The patient was brought into the operating room and placed on the operating table in the supine position. She had previously undergone left breast injection for sentinel lymph node biopsy. As a note at the end of the procedure, Dr. Sinclair tool her over and proceeded with her portion of the reconstruction. The patient was brought into the operating room and placed on the operating table in the supine position. Her left chest and right chest were prepped and draped in the usual fashion. Initially, incision was made in the left axilla, carrying dissection down using the Neoprobe to identify what we felt was the sentinel lymph node and it was sent for frozen section. During the frozen section, we did perform mastectomy. Frozen section did come back negative. Mastectomy was performed by making an elliptical incision around the nipple areolar complex and then dissecting the breast tissue away from the subcutaneous tissue down to the chest wall. The breast tissue was then dissected away from the pectoralis major muscle, taking the fascia to the lateral axilla. The breast tissue was then marked with a long silk suture lateral. The site was irrigated, 2-0 plain suture was placed deep in the left axilla and then Dr. Sinclair proceeded with her portion of the operation. My administration assistant helped with prepping and draping, incisions in the chest wall and axilla, exposure of the tissue and then helped with closure of the axilla. I attest to the content of the Intraoperative Record and any orders documented therein. Any exception s are noted below.
--- NOTE | 2017-04-06 15:20 | [facility] Operative Report ---
Operative Report Operative Date Apr 06, 2017. Pre-Operative Diagnosis Left Breast Cancer Post-Operative Diagnosis Left Breast Cancer Procedure(s) Performed Lt mastectomy with sentinel lymph node bx reconstruction Surgeon Dr. Marcial Mojica and Dr. Stefani Sinclair Bsa Officer Surgeon(s) Toy Dunham PA-C and Sherie Smallwood PA-C Estimated Blood Loss 20cc (mastectomy) Findings SLN- negative on frozen Specimens STAT Frozen Specimen sent out of room to lab by Elvira Worley RN at 1257. #1 - Left [place] Lymph Nodes Anesthesia Type General Complication(s) none Disposition Recovery Room / PACU I attest to the content of the Intraoperative Record and any orders documented therein. Any exceptions are noted below.
--- NOTE | 2017-04-06 15:26 | [facility] Post Operative Brief Note ---
Immediate Operative Summary Operative Date Apr 06, 2017. Pre-Operative Diagnosis Left Breast Cancer Post-Operative Diagnosis Left Breast Cancer Procedure(s) Performed Lt mastectomy with sentinel lymph node bx 1st stage immediate left breast reconstruction with tissue technical lead and alloderm Surgeon Dr. Marcial Mojica and Dr. Stefani Sinclair Cracker Off Surgeon(s) Toy Dunham PA-C and Sherie Smallwood PA-C Estimated Blood Loss 20cc (mastectomy) Findings Consistent with Post-Op Diagnosis Specimens STAT Frozen Specimen sent out of room to lab by Elvira Worley RN at 1257. #1 - Left [place] Lymph Nodes A.) Left Breast Tissue sent to lab by SALAS White at 1350. silk stitch - lateral Drains [id number] Anesthesia Type General Complication(s) none Disposition Disposition: Recovery Room / PACU
[2017-04-06] MEDS ORDERED: MoRPHine SULFATE 2 MG/ML CARP IV PRN ×2 (15:30)
[2017-04-06] MEDS ORDERED: PROMETHAZINE HCL INJ 12.5 MG in SODIUM CHLORIDE 0.9% 50ML 50 ML IV PRN (15:30)
[2017-04-06] MEDS ORDERED: ONDANSETRON INJ 2 MG/ML 2 ML VIAL IV PRN (15:30)
[2017-04-06] MEDS ORDERED: OXYCODONE/ACETAMINOPHEN 5-325 TAB PO PRN ×2 (15:30)
[2017-04-06] MEDS ORDERED: DiphenhydrAMINE HCL 50 MG/ML VIAL IV PRN (15:30)
[2017-04-06] MEDS ORDERED: OXAZEPAM 10MG CAP PO PRN (15:30)
[2017-04-06] MEDS ORDERED: MoRPHine SULFATE 4 MG/ML 1 ML CARP\\VIAL IV PRN (15:30)
[2017-04-06] MEDS ORDERED: CEFAZOLIN IV 2,000 MG in DEXTROSE 5% 50ML 50 ML IV SCH (15:30)
--- NOTE | 2017-04-06 15:35 | Discharge Instructions ---
Discharge Instructions Date of Service Apr 06, 2017. Admission Reason for Admission: Left Breast Cancer Discharge Discharge Diagnosis / Problem: left breast cancer Discharge Goals Goal(s): Decrease discomfort, Improve function Activity Recommendations Activity Limitations: per Instructions/Follow-up section ACTIVITY RECOMMENDATIONS: __Normal activities _x_No bending, lifting or straining. Limit range of motion left arm to shoulder height _x_No driving __Driving allowed when you are off pain medications _x_Walking permitted and encouraged to decrease risk of DVT __You should have help at home for ___ days DRESSINGS: __No dressings required _x_Keep dressings dry/in place until first office visit __Remove dressings ___ and leave dressings off __Apply ice ___ days __Remove dressings and reapply garment __Apply antibiotic ointment (Bacitracin, Neosporin, etc) to wounds 3-4 times/ day for 10 days BATHING: _x_Keep dressings dry _x_Sponge bathing permitted away from incision site __Showering permitted _x_No swimming, hot tubs or soaking in a tub or showers while drain is in place MEDICATIONS: Resume previous medications unless instructed otherwise by your surgeon. _x_Do not use aspirin, Motrin, Advil or Ibuprofen as these may promote bleeding. Please use Tylenol. _x_Prescription(s) provided: pain medication and antibiotics were provided at your last office OTHER INSTRUCTIONS: _x_Record drain output 2-3 times per day. Call office when drain has less than 10cc/24 hours. You may not shower and must be on antibiotics while your drain is in place. SPECIAL CARE INSTRUCTIONS: * It is normal to have a mild fever after surgery. If your temperature is higher than 101.5 degrees F, please call the office at [phone]. * Constipation is a typical side effect of pain medication. An over-the- counter stool softener will help relieve this. * Leaking around surgical drains may occur and should not cause concern. Sometimes these drains become clogged. If this happens, remove the bulb and milk the clot out of the tube, then replace the bulb. * Drainage from wounds after liposuction is normal and should be expected. Garments will become soiled. You should protect furniture and bedding. This drainage should mostly subside within 2-3 days. Leave garments in place unless instructed to remove them. * If you have unusual drainage from a wound or are concerned you have an infection or have any questions or concerns, please call the office at [phone]. FOLLOW UP VISIT: If not already scheduled, please call the office, , when you return home after surgery to schedule an appointment to be seen in _1__ days. . Current Hospital Diet Patient's current hospital diet: Regular Diet Discharge Diet Recommended Diet: Regular Diet Procedures Procedures Performed: Lt mastectomy with sentinel lymph node bx 1st stage immediate left breast reconstruction with tissue pediatric registered nurse and alloderm Pending Studies Studies pending at discharge: yes List of pending studies: pathology Medical Emergencies . Who to Call and When: Medical Emergencies: If at any time you feel your situation is an emergency, please call 911 immediately. . Non-Emergent Contact Non-Emergency issues call your: Primary Care Provider, Surgeon . "Provider Documentation" section prepared by Sherie Smallwood. . VTE Core Measure Inpt VTE Proph given/why not?: SCD's [place] Drug Monitoring Program Search Results: no issues identified
[2017-04-06] MEDS ORDERED: IV FLUIDS COMPLETED PRN (15:45)
--- NOTE | 2017-04-06 15:53 | Anesthesiology Progress Note ---
Anesthesia Post Op Note Date & Time Apr 06, 2017 at 15:53 Vital Signs Pain Intensity: 0 Vital Signs Past 12 Hours Date Time Temp Pulse Resp B/P (MAP) Pulse Ox O2 Delivery O2 Flow Rate FiO2 04/06/17 15:45 57 16 123/68 99 Oxymask 10 04/06/17 15:35 58 16 120/68 99 Oxymask 10 04/06/17 15:27 36.0 65 12 129/78 100 Oxymask 10 04/06/17 10:54 36.9 66 18 144/73 (96) 98 Room Air Notes Mental Status: alert / awake / arousable, participated in evaluation Pt Amnestic to Procedure: Yes Nausea / Vomiting: adequately controlled Pain: adequately controlled Airway Patency, RR, SpO2: stable & adequate BP & HR: stable & adequate Hydration State: stable & adequate Anesthetic Complications: no major complications apparent
[2017-04-06] MEDS: LACTATED RINGER'S 1000ML 1,000 ML IV SCH (16:35)
--- NOTE | 2017-04-06 17:32 | Medical Consult ---
Consultation Date of Consultation: Apr 06, 2017. Attending Physician: Stefani Sinclair MD Reason for Consultation: Medical management History of Present Illness 77 y/o F who was admitted earlier today by Dr. Mojica s/p L mastectomy and enhancement. She is still a bit groggy s/p anesthesia but is doing well otherwise. Pt has some L axillary pain related to her surgery. A bit nauseated as well but no emesis. She has not eaten yet. No chest pain or SOB. Pt denies fever, abd pain, c/d, LE pain or swelling. Past Medical/Surgical History HTN Hyperlipidemia No DM, [place], CVA hx Social History Smoking Status: Never Smoker Alcohol Use: occasionally (a glass of wine a night, several nights per week but not all) Drug Use: none Allergies Coded Allergies: Terbinafine (Verified Allergy, Unknown, rash, 04/06/17) Lisinopril (Verified Adverse Reaction, Unknown, cough, 04/06/17) Current Inpatient Medications Current Inpatient Medications Medications (Trade) Dose Ordered Sig/Kaycee Route Start Time Stop Time Status Last Admin Dose Admin Lactated Ringer's 1,000 ml @ 15 mls/hr Q24H IV 04/06/17 06:00 04/07/17 05:59 04/06/17 11:41 15 MLS/HR Cefazolin Sodium 10 ml @ 2.5 mls/min PREOP IV 04/06/17 06:00 04/06/17 18:00 04/06/17 12:09 2.5 MLS/MIN Fentanyl Citrate (Fentanyl Inj) 25 mcg Q5M PRN IV 04/06/17 07:15 04/07/17 07:14 Hydromorphone HCl (Dilaudid Inj) 0.25 mg Q5M PRN IV 04/06/17 07:15 04/07/17 07:14 Ondansetron HCl (Zofran Inj) 4 mg ONE PRN IV 04/06/17 07:15 04/07/17 07:14 Ephedrine Sulfate (EpHEDrine SULFATE INJ) 5 mg Q5M PRN IV 04/06/17 07:15 04/07/17 07:14 Atropine Sulfate (Atropine Sulfate 0.1mg/ml Inj) 0.5 mg Q1M PRN IV 04/06/17 07:15 04/07/17 07:14 Lactated Ringer's 1,000 ml @ 75 mls/hr [id number] IV 04/06/17 15:26 05/06/17 15:25 Acetaminophen (Tylenol Tab) 650 mg Q4H PRN PO 04/06/17 15:30 05/06/17 15:29 Morphine Sulfate (MoRPHine SULFATE INJ) 1 mg Q1H PRN IV 04/06/17 15:30 04/20/17 15:29 Oxycodone/ Acetaminophen (Percocet 5-325mg Tab) 1 tab Q4H PRN PO 04/06/17 15:30 04/20/17 15:29 Morphine Sulfate (MoRPHine SULFATE INJ) 2 mg Q1H PRN IV 04/06/17 15:30 04/20/17 15:29 Oxycodone/ Acetaminophen (Percocet 5-325mg Tab) 2 tab Q4H PRN PO 04/06/17 15:30 04/20/17 15:29 Morphine Sulfate (MoRPHine SULFATE INJ) 4 mg Q1H PRN IV 04/06/17 15:30 04/20/17 15:29 Ondansetron HCl (Zofran Inj) 4 mg ONE PRN IV 04/06/17 15:30 05/06/17 15:29 Multivitamins (Multivitamin Tab) 1 tab DAILY PO 04/07/17 09:00 05/07/17 08:59 Diphenhydramine HCl (Benadryl Cap) 25 mg Q6H PRN PO 04/06/17 15:30 05/06/17 15:29 Diphenhydramine HCl (Benadryl Inj) 25 mg Q6H PRN IV 04/06/17 15:30 05/06/17 15:29 Oxazepam (Serax Cap) 10 mg HS PRN PO 04/06/17 15:30 05/06/17 15:29 Promethazine HCl 12.5 mg/Sodium Chloride 50.5 ml @ 200 mls/hr Q6H PRN IV 04/06/17 15:30 05/06/17 15:29 Atorvastatin Calcium (Lipitor Tab) 80 mg HS PO 04/06/17 21:00 05/06/17 20:59 Hydrochlorothiazide (Hydrochlorothiazide Tab) 12.5 mg HS PO 04/06/17 21:00 05/06/17 20:59 Miscellaneous (Iv Fluids Completed) 1 ea PRN PRN N/A 04/06/17 15:45 04/06/18 15:44 Cefazolin Sodium 2000 mg/Syringe 15 ml @ 3.75 mls/ min Q8H IV 04/06/17 22:00 04/07/17 06:03 Review of Systems Pertinent positives and negatives reviewed in HPI--all others negative Physical Exam Date Time Temp Pulse Resp B/P (MAP) Pulse Ox O2 Delivery O2 Flow Rate FiO2 04/06/17 17:05 35.9 61 15 128/75 (92) 97 Nasal Cannula 2.0 04/06/17 16:35 36.3 60 16 132/72 Nasal Cannula 2.0 04/06/17 16:35 Nasal Cannula 2.0 04/06/17 16:25 54 14 123/67 98 Nasal Cannula 2 04/06/17 16:15 58 16 116/70 100 Nasal Cannula 2 04/06/17 16:05 55 14 118/76 100 Nasal Cannula 2 04/06/17 15:55 36.4 55 12 121/70 98 Nasal Cannula 2 04/06/17 15:45 57 16 123/68 99 Oxymask 10 04/06/17 15:35 58 16 120/68 99 Oxymask 10 04/06/17 15:27 36.0 65 12 129/78 100 Oxymask 10 04/06/17 10:54 36.9 66 18 144/73 (96) 98 Room Air General Appearance: WD/WN, no apparent distress Head: normocephalic, atraumatic Eyes: normal inspection, sclerae normal Respiratory/Chest: normal breath sounds, no respiratory distress Cardiovascular: regular rate, rhythm, no edema, normal peripheral pulses Abdomen/GI: non tender, soft Extremities/Musculoskelatal: no calf tenderness, no pedal edema Neurologic/Psych: alert, normal mood/affect, oriented x 3 Skin: normal color, warm/dry Assessment & Plan 77 y/o F who was admitted on 04/[address] Mojica s/p L mastectomy and enhancement. L mastectomy and enhancement: as per Drs. Mojica and Yahir HTN: continue home meds Hyperlipidemia: continue home meds DVT proph and diet as per surgery
--- NOTE | 2017-04-06 18:58 | OPERATIVE REPORT ---
DATE OF OPERATION: 04/06/2017 PREOPERATIVE DIAGNOSIS: Left breast cancer. POSTOPERATIVE DIAGNOSIS: Same. PROCEDURE: Left first stage immediate breast reconstruction with tissue infection control nurse and AlloDerm. SURGEON: Stefani Sinclair MD. BAR TACKER: Sherie Smallwood PA-C. ANESTHESIA: General. COMPLICATIONS: None. INDICATION FOR THE PROCEDURE: The patient is a 77-year-old female referred to me by Dr. Mojica with diagnosis of left breast cancer requiring mastectomy. We discussed options for breast reconstruction and she was interested in pursuing this. Given her age, I felt that a tissue infection control nurse would be the best option for her. Thorough discussion of the procedure as well as risks and benefits were held in our office and also secondarily via telephone. BRIEF DESCRIPTION OF THE PROCEDURE: The risks, benefits, and alternatives to procedure were explained to the patient who agreed and signed consent. She was identified and marked in the preoperative holding area. She was brought to the operating room and placed under anesthesia and underwent mastectomy and sentinel lymph node biopsy by Dr. Mojica, who has dictated his portion of the procedure separately. Following the completion of his mastectomy, new drapes were placed and time-out procedure was performed. I began by inspecting the mastectomy pocket which showed uniform flaps, good skin viability and minimal bleeding. There was no disruption of the inframammary fold. I began my portion of the procedure by elevating the pectoralis major muscle along its inferior attachments to the rib. These were divided and a pocket was created by dissecting medially, superiorly and laterally. Once I was satisfied with the pocket, I selected a medium contour breast AlloDerm sheet which was previously prepared. It was sutured in along the inframammary fold using interrupted U sutures with 2-0 Vicryl suture. Following this, the base diameter was measured and noted to be 14 cm. An Circle Incan Natrelle style 133 MVT 400 mL tissue infection control nurse was selected. It was prepared by aspirating any residual air injecting 50 mL of sterile injectable saline and irrigating with antibiotic irrigation. Prior to insertion of the infection control nurse, gloves were changed. The pocket was irrigated using triple antibiotic irrigation and the infection control nurse was placed as medially as possible. Suture tabs were sutured into place using 2-0 Vicryl suture. I then reapproximated the inferior border of the pectoralis major muscle to the superior border of the AlloDerm using a running 2-0 Vicryl suture. Laterally, the pocket was closed down using 2-0 Vicryl interrupted U sutures to tack the AlloDerm to serratus fascia. Prior to closing the skin expansion was begun. The magnifinder was used to identify the fill port and a final total of 400 mL of sterile injectable saline were placed. The pocket was irrigated with 0.25% Marcaine plain and a 15 Sami Alberto drain was placed into the wound bed and brought out through a separate stab incision and positioned along the inframammary fold. The drain was sutured into place using 3-0 nylon suture. The wound was reapproximated using 2-0 Vicryl deep dermal sutures, 3-0 PDS superficial dermal sutures and 3-0 Monocryl running subcuticular suture. I also performed closure of the sentinel lymph node biopsy site in a layered fashion using 2-0 Vicryl deep dermal sutures, 3-0 PDS superficial dermal sutures and 3-0 Monocryl running subcuticular suture. Dermabond was applied to both incisions. Xeroform was placed around the drain site and sterile dressings were placed. The patient was awakened and transferred to recovery in satisfactory condition. Sherie Smallwood PA-C was present and scrubbed throughout the entire procedure and was instrumental in assisting during retraction during elevation of pectoralis muscle, preparing of the tissue infection control nurse and assisting in wound closure. I attest to the content of the Intraoperative Record and any orders documented therein. Any exception s are noted below.
[2017-04-06] MEDS ORDERED: ATORVASTATIN 40 MG TAB PO SCH (21:00)
[2017-04-06] MEDS ORDERED: HYDROCHLOROTHIAZIDE 25 MG TAB PO SCH (21:00)
[2017-04-06] MEDS: CEFAZOLIN IV 2,000 MG in SYRINGE 5 ML IV SCH (21:28)
[2017-04-06] MEDS: ACETAMINOPHEN 325 MG TAB PO PRN (21:45)
[2017-04-07 03:26] VITALS: BP 113/57; PULSE 68; TEMP 36.7; O2SAT 96
[2017-04-07] MEDS: LACTATED RINGER'S 1000ML 1,000 ML IV SCH (04:08)
[2017-04-07] MEDS: ACETAMINOPHEN 325 MG TAB PO PRN ×2 (04:11→12:15)
[2017-04-07] MEDS: CEFAZOLIN IV 2,000 MG in SYRINGE 5 ML IV SCH (05:42)
--- NOTE | 2017-04-07 06:03 | Surgery Progress Note ---
Surgery Progress Note Date of Service Apr 07, 2017. Subjective awake, alert, min pain tolerating some liquids, not too hungry Objective Vital Signs: Date Time Temp Pulse Resp B/P (MAP) Pulse Ox O2 Delivery O2 Flow Rate FiO2 04/07/17 03:26 36.7 68 16 113/57 (75) 96 Room Air 04/06/17 23:40 Room Air 04/06/17 22:58 36.5 98 16 122/71 (88) 67 Room Air 04/06/17 21:30 36.3 04/06/17 19:56 36.4 60 18 117/73 (88) 96 Nasal Cannula 2.0 04/06/17 18:35 36.3 71 17 121/72 (88) 97 Nasal Cannula 2.0 04/06/17 17:38 60 16 126/74 (91) 96 Nasal Cannula 2.0 04/06/17 17:05 35.9 61 15 128/75 (92) 97 Nasal Cannula 2.0 04/06/17 16:35 Nasal Cannula 2.0 04/06/17 16:35 36.3 60 16 132/72 Nasal Cannula 2.0 04/06/17 16:35 Nasal Cannula 2.0 04/06/17 16:25 54 14 123/67 98 Nasal Cannula 2 04/06/17 16:15 58 16 116/70 100 Nasal Cannula 2 04/06/17 16:05 55 14 118/76 100 Nasal Cannula 2 04/06/17 15:55 36.4 55 12 121/70 98 Nasal Cannula 2 04/06/17 15:45 57 16 123/68 99 Oxymask 10 04/06/17 15:35 58 16 120/68 99 Oxymask 10 04/06/17 15:27 36.0 65 12 129/78 100 Oxymask 10 04/06/17 10:54 36.9 66 18 144/73 (96) 98 Room Air General Appearance: no apparent distress Respiratory/Chest: no respiratory distress Incision(s): clean, dry, drainage (expected drainage, no evidence of bleeding) Laboratory Results: Results Past 24 Hours Test 04/07/17 04:44 Range/Units Assessment & Plan 04/07/17- s/p Lt mastectomy w/ sentinel lymph node bx and initial stage of reconstruction by Dr Sinclair. Pt is doing well taking minimal pain meds, will try some food this am. d/c when able to tolerate diet and ok with Dr Sinclair. May need one more day depending on progress
[2017-04-07 07:00] VITALS: BP 121/73; PULSE 65; TEMP 36.9; O2SAT 96
[2017-04-07 07:26] LABS: BASO % 0.1 %; BASO ABS # 0.01 K/uL (0-0.2); EOS % 0.4 %; EOS ABS # 0.03 K/uL (0-0.5); HEMATOCRIT 32.7 % (37-47); HEMOGLOBIN 11.6 g/dL (12.0-16.0); IG# 0.01 K/uL (0.00-0.02); LYMPH % 15.7 %; MEAN CELL VOLUME 92.9 fL (80-100); MEAN CORPUSCULAR HGB CONC 35.5 g/dl (32-36); MEAN PLATELET VOLUME 8.5 fL (7.4-10.4); MONO % 6.6 %; MONO ABS # 0.55 K/uL (0.11-0.59); NEUT % 77.1 %; NEUT ABS # 6.39 K/uL (1.4-6.5); PLATELET COUNT 213 K/uL (130-400); RED CELL DISTRIBUTION WIDTH SD 43.9 fL (36.4-46.3); WHITE BLOOD COUNT 8.29 K/uL (4.8-10.8)
[2017-04-07 07:33] LABS: PTT PATIENT 25.2 SECONDS (21.0-31.0)
[2017-04-07 08:04] LABS: CALCIUM 8.7 mg/dl (8.5-10.1); CREATININE 0.71 mg/dl (0.60-1.20); POTASSIUM 3.8 mmol/L (3.5-5.1)
[2017-04-07] MEDS ORDERED: MULTIVITAMIN TAB PO SCH (09:00)
[2017-04-07 09:07] VITALS: BP 121/73; PULSE 65; TEMP 36.9; O2SAT 96
--- NOTE | 2017-04-07 09:25 | Anesthesiology Progress Note ---
Anesthesia Post Op Note Date & Time Apr 07, 2017 at 09:21 Vital Signs Vital Signs Past 12 Hours Date Time Temp Pulse Resp B/P (MAP) Pulse Ox O2 Delivery O2 Flow Rate FiO2 04/07/17 09:07 36.9 65 16 96 Room Air 04/07/17 07:00 36.9 65 16 121/73 (89) 96 Room Air 04/07/17 03:26 36.7 68 16 113/57 (75) 96 Room Air 04/06/17 23:40 Room Air 04/06/17 22:58 36.5 98 16 122/71 (88) 67 Room Air 04/06/17 21:30 36.3 Notes Mental Status: alert / awake / arousable, participated in evaluation Pt Amnestic to Procedure: Yes Nausea / Vomiting: adequately controlled Pain: adequately controlled Airway Patency, RR, SpO2: stable & adequate BP & HR: stable & adequate Hydration State: stable & adequate Anesthetic Complications: no major complications apparent
--- NOTE | 2017-04-07 09:54 | Surgery Progress Note ---
Surgery Progress Note Date of Service Apr 07, 2017. Subjective Post OP Day: 1 + feeling well, + pain controlled (on acetaminophen), No complaints Objective Vital Signs: Date Time Temp Pulse Resp B/P (MAP) Pulse Ox O2 Delivery O2 Flow Rate FiO2 04/07/17 09:07 36.9 65 16 96 Room Air 04/07/17 07:00 36.9 65 16 121/73 (89) 96 Room Air 04/07/17 03:26 36.7 68 16 113/57 (75) 96 Room Air 04/06/17 23:40 Room Air 04/06/17 22:58 36.5 98 16 122/71 (88) 67 Room Air 04/06/17 21:30 36.3 04/06/17 19:56 36.4 60 18 117/73 (88) 96 Nasal Cannula 2.0 04/06/17 18:35 36.3 71 17 121/72 (88) 97 Nasal Cannula 2.0 04/06/17 17:38 60 16 126/74 (91) 96 Nasal Cannula 2.0 04/06/17 17:05 35.9 61 15 128/75 (92) 97 Nasal Cannula 2.0 04/06/17 16:35 Nasal Cannula 2.0 04/06/17 16:35 36.3 60 16 132/72 Nasal Cannula 2.0 04/06/17 16:35 Nasal Cannula 2.0 04/06/17 16:25 54 14 123/67 98 Nasal Cannula 2 04/06/17 16:15 58 16 116/70 100 Nasal Cannula 2 04/06/17 16:05 55 14 118/76 100 Nasal Cannula 2 04/06/17 15:55 36.4 55 12 121/70 98 Nasal Cannula 2 04/06/17 15:45 57 16 123/68 99 Oxymask 10 04/06/17 15:35 58 16 120/68 99 Oxymask 10 04/06/17 15:27 36.0 65 12 129/78 100 Oxymask 10 04/06/17 10:54 36.9 66 18 144/73 (96) 98 Room Air Physical Exam: Alberto drainage (bloody and serous) General Appearance: WD/WN, no apparent distress Incision(s): clean, dry, intact, no erythema, no drainage Laboratory Results: Results Past 24 Hours Test 04/07/17 06:56 Range/Units White Blood Count 8.29 4.8-10.8 K/uL Red Blood Count 3.52 4.2-5.4 M/uL Hemoglobin 11.6 12.0-16.0 g/dL Hematocrit 32.7 37-47 % Mean Corpuscular Volume 92.9 80-100 fL Mean Corpuscular Hemoglobin 33.0 25-34 pg Mean Corpuscular Hemoglobin Concent 35.5 32-36 g/dl Platelet Count 213 130-400 K/uL Mean Platelet Volume 8.5 7.4-10.4 fL Neutrophils (%) (Auto) 77.1 % Lymphocytes (%) (Auto) 15.7 % Monocytes (%) (Auto) 6.6 % Eosinophils (%) (Auto) 0.4 % Basophils (%) (Auto) 0.1 % Neutrophils # (Auto) 6.39 1.4-6.5 K/uL Lymphocytes # (Auto) 1.30 1.2-3.4 K/uL Monocytes # (Auto) 0.55 0.11-0.59 K/uL Eosinophils # (Auto) 0.03 0-0.5 K/uL Basophils # (Auto) 0.01 0-0.2 K/uL RDW Standard Deviation 43.9 36.4-46.3 fL RDW Coefficient of Variation 13.0 11.5-14.5 % Immature Granulocyte % (Auto) 0.1 % Immature Granulocyte # (Auto) 0.01 0.00-0.02 K/uL Prothrombin Time 10.2 9.0-12.0 SECONDS Prothromb Time International Ratio 1.0 0.9-1.1 Activated Partial Thromboplast Time 25.2 21.0-31.0 SECONDS Partial Thromboplastin Ratio 1.0 Sodium Level 133 136-145 mmol/L Potassium Level 3.8 3.5-5.1 mmol/L Chloride Level 97 98-107 mmol/L Carbon Dioxide Level 27 21-32 mmol/L Anion Gap 8.0 3-11 mmol/L Blood Urea Nitrogen 13 7-18 mg/dl Creatinine 0.71 0.60-1.20 mg/dl Est Creatinine Clear Calc Drug Dose 71.0 ml/min Estimated GFR () 95.9 Estimated GFR (Non- 82.7 BUN/Creatinine Ratio 18.2 10-20 Random Glucose 106 70-99 mg/dl Calcium Level 8.7 8.5-10.1 mg/dl Assessment & Plan s/p left breast mastectomy with immediate reconstruction using tissue box folding machine operator and alloderm matrix 1. doing well. excellent pain control, VSS 2. d/c home today, follow-up in office tomorrow. post-op restrictions reviewed, patient aware to start antibiotics at home and no showering
[2017-04-07 11:20] VITALS: BP 121/73; PULSE 65; TEMP 36.9; O2SAT 96
--- NOTE | 2017-04-07 12:00 | Progress Note ---
Subjective Date of Service: Apr 07, 2017. Subjective Pt evaluation today including: conversation w/ patient Pt is doing well post-op. Still a bit sore regarding her incision site, but no other issues. Pt denies fever, SOB, chest pain, abd pain, n/v/c/d, LE pain or swelling. Tolerating PO without issue. Review of Systems All Other Systems: Reviewed and Negative Objective Vital Signs Date Time Temp Pulse Resp B/P (MAP) Pulse Ox O2 Delivery O2 Flow Rate FiO2 04/07/17 11:20 36.9 65 16 121/73 (89) 96 Room Air 04/07/17 09:07 36.9 65 16 96 Room Air 04/07/17 07:00 36.9 65 16 121/73 (89) 96 Room Air 04/07/17 03:26 36.7 68 16 113/57 (75) 96 Room Air 04/06/17 23:40 Room Air 04/06/17 22:58 36.5 98 16 122/71 (88) 67 Room Air 04/06/17 21:30 36.3 04/06/17 19:56 36.4 60 18 117/73 (88) 96 Nasal Cannula 2.0 04/06/17 18:35 36.3 71 17 121/72 (88) 97 Nasal Cannula 2.0 04/06/17 17:38 60 16 126/74 (91) 96 Nasal Cannula 2.0 04/06/17 17:05 35.9 61 15 128/75 (92) 97 Nasal Cannula 2.0 04/06/17 16:35 Nasal Cannula 2.0 04/06/17 16:35 36.3 60 16 132/72 Nasal Cannula 2.0 04/06/17 16:35 Nasal Cannula 2.0 04/06/17 16:25 54 14 123/67 98 Nasal Cannula 2 04/06/17 16:15 58 16 116/70 100 Nasal Cannula 2 04/06/17 16:05 55 14 118/76 100 Nasal Cannula 2 04/06/17 15:55 36.4 55 12 121/70 98 Nasal Cannula 2 04/06/17 15:45 57 16 123/68 99 Oxymask 10 04/06/17 15:35 58 16 120/68 99 Oxymask 10 04/06/17 15:27 36.0 65 12 129/78 100 Oxymask 10 Physical Exam Comments: General Appearance: WD/WN, no apparent distress Head: normocephalic, atraumatic Eyes: normal inspection, sclerae normal Respiratory/Chest: normal breath sounds, no respiratory distress Cardiovascular: regular rate, rhythm, no edema, normal peripheral pulses Abdomen/GI: non tender, soft Extremities/Musculoskelatal: no calf tenderness, no pedal edema Neurologic/Psych: alert, normal mood/affect, oriented x 3 Skin: normal color, warm/dry Laboratory Results Last 24 Hours Test 04/07/17 06:56 White Blood Count 8.29 K/uL Red Blood Count 3.52 M/uL Hemoglobin 11.6 g/dL Hematocrit 32.7 % Mean Corpuscular Volume 92.9 fL Mean Corpuscular Hemoglobin 33.0 pg Mean Corpuscular Hemoglobin Concent 35.5 g/dl Platelet Count 213 K/uL Mean Platelet Volume 8.5 fL Neutrophils (%) (Auto) 77.1 % Lymphocytes (%) (Auto) 15.7 % Monocytes (%) (Auto) 6.6 % Eosinophils (%) (Auto) 0.4 % Basophils (%) (Auto) 0.1 % Neutrophils # (Auto) 6.39 K/uL Lymphocytes # (Auto) 1.30 K/uL Monocytes # (Auto) 0.55 K/uL Eosinophils # (Auto) 0.03 K/uL Basophils # (Auto) 0.01 K/uL RDW Standard Deviation 43.9 fL RDW Coefficient of Variation 13.0 % Immature Granulocyte % (Auto) 0.1 % Immature Granulocyte # (Auto) 0.01 K/uL Prothrombin Time 10.2 SECONDS Prothromb Time International Ratio 1.0 Activated Partial Thromboplast Time 25.2 SECONDS Partial Thromboplastin Ratio 1.0 Sodium Level 133 mmol/L Potassium Level 3.8 mmol/L Chloride Level 97 mmol/L Carbon Dioxide Level 27 mmol/L Anion Gap 8.0 mmol/L Blood Urea Nitrogen 13 mg/dl Creatinine 0.71 mg/dl Est Creatinine Clear Calc Drug Dose 71.0 ml/min Estimated GFR () 95.9 Estimated GFR (Non- 82.7 BUN/Creatinine Ratio 18.2 Random Glucose 106 mg/dl Calcium Level 8.7 mg/dl Assessment and Plan 77 y/o F who was admitted on 04/[address] Mojica s/p L mastectomy and enhancement. L mastectomy and enhancement: as per Drs. Mojica and Yahir HTN: continue home meds Hyperlipidemia: continue home meds DVT proph and diet as per surgery
--- NOTE | 2017-04-08 12:32 | Discharge Summary ---
Discharge Summary Date of Service Apr 08, 2017. Admission Date/Reason Apr 06, 2017 at 10:10 Left Breast Cancer. Discharge Date/Disposition Apr 07, 2017 Home Diagnosis Principal Diagnosis: left breast cancer Procedure(s) Performed left breast mastectomy with immediate reconstruction using tissue pattern chain builder and alloderm matrix Medication Reconciliation Continued Medications: Atorvastatin (Lipitor) 80 Mg Tab 80 MG PO HS, TAB Bisoprolol/Hctz (Ziac 10MG/6.25MG) Tab 1 TAB PO HS, TAB Cholecalciferol (Vitamin D3) 2,000 Unit Cap 1 CAP PO Q2D takes at hs Coenzyme Q10 (Ubidecarenone) (Coq10) 100 Mg Cap 1 TAB PO HS Hydrochlorothiazide (Hydrochlorothiazide) 12.5 Mg Tab 12.5 MG PO HS Multivitamin (Multivitamin) Tab 1 TAB PO HS, TAB Discontinued Medications: Aspirin (Aspirin Ec) 81 Mg Tab 81 MG PO HS Fish Oil ([place]-3) 1 Ea Cap 1 CAP PO HS, CAP Glucosamine Sulfate (Glucosamine) 1,000 Mg Tab 1500 MG PO HS, TAB pt med form reads glucosamine HC1 Specialty Vitamins Products (Collagen Ultra) 1 Cap Cap 1 CAP PO HS Turmeric (Curcuma Longa) (Curcumin 95) Unknown Strength Cap Unknown Dose PO HS PT MED FORM READS CURCUMIN Admission Physical Exam As per Admitting History & Physical. Hospital Course Patient was admitted with history of left breast cancer. She was taken to the OR and underwent left breast mastectomy with Dr. Mojica and immediate breast reconstruction using tissue pattern chain builder and alloderm matrix with Dr. Sinclair. She had 400cc of saline injected into her pattern chain builder intraoperatively. She was taken to recovery and transferred to med/surg for observation. On POD#1 she had excellent pain control on acetaminophen. On exam, her incisions are clean, dry , intact. Her vital signs were stable. She was discharged home in stable condition with instructions to follow-up in the office in one day. Discharge Instructions Please refer to the electronic Patient Visit Report (Discharge Instructions) for additional information.
== END 2017-04-07 13:14 | disposition home or self-care (01) ==
LOC: C.ACU 09:53 → C.MSN 10:10 → ENRESERV 16:17
PROVIDERS: ADMIT Plastic Surgery; ATTEND Plastic Surgery
DX: C50.912 Malignant neoplasm of unspecified site of left female breast (principal); N60.99 Unspecified benign mammary dysplasia of unspecified breast; I10 Essential (primary) hypertension; E78.5 Hyperlipidemia, unspecified; Z42.1 Encounter for breast reconstruction following mastectomy; Z79.82 Long term (current) use of aspirin; Z79.899 Other long term (current) drug therapy

== ENCOUNTER → 2017-06-02 | Outpatient (CLI) | payer OTHER ==
[~2017-06-02] MED LIST changes: -ASPI81TA28 PO; -ATROPINE SULFATE 0.1 MG/ML 5ML SYR IV PRN; -CEFAZOLIN 2000MG IV PUSH 10 ML IV SCH; -EpHEDrine SULFATE INJ 50 MG/ML AMP IV PRN; -FENTANYL CITRATE INJ 50 MCG/1 ML 2 ML VIAL IV PRN; -GLUC10007 PO; -HYDROmorphone INJ 1 MG/ML SYR IV PRN; -LACTATED RINGER'S 1000ML 1,000 ML IV SCH; -OMEG10007 PO; -ONDANSETRON INJ 2 MG/ML 2 ML VIAL IV PRN; -SPECCAP4 PO; -TURM500C2 PO
[2017-06-02 15:04] LABS: ALBUMIN 3.7 gm/dl (3.4-5.0); ALT/SGPT 28 U/L (12-78); BLOOD UREA NITROGEN 14 mg/dl (7-18); CALCIUM 9.2 mg/dl (8.5-10.1); CARBON DIOXIDE 30 mmol/L (21-32); CHOLESTEROL 182 mg/dl (0-200); CREATININE 0.76 mg/dl (0.60-1.20); GLUCOSE 114 mg/dl (70-99); POTASSIUM 3.7 mmol/L (3.5-5.1); SODIUM 132 mmol/L (136-145)
[2017-06-02 15:12] LABS: ALKALINE PHOSPHATASE 96 U/L (45-117); AST/SGOT 17 U/L (15-37); LDL CHOLESTEROL CALCULATED 103 mg/dl; TOTAL PROTEIN 7.9 gm/dl (6.4-8.2)
== END | disposition home or self-care (01) ==
LOC: C.LAB1850 11:40
PROVIDERS: ATTEND Internal Medicine
DX: I10 Essential (primary) hypertension (principal); E78.5 Hyperlipidemia, unspecified

== ENCOUNTER → 2017-06-02 | Outpatient (CLI) | payer OTHER | END | disposition home or self-care (01) | LOC: C.MAMM 13:21 | PROVIDERS: ATTEND Internal Medicine | DX: C50.919 Malignant neoplasm of unspecified site of unspecified female breast (principal); N60.89 Other benign mammary dysplasias of unspecified breast; Z13.820 Encounter for screening for osteoporosis; M81.0 Age-related osteoporosis without current pathological fracture; M85.88 Other specified disorders of bone density and structure, other site ==

== ENCOUNTER → 2017-09-21 | Outpatient (CLI) | payer OTHER ==
[~2017-09-21] MED LIST changes: +ANAS1TAB59 PO; +ASPI81TA28 PO; +GLUC15009 PO; +OMEG10007 PO; +OYST1TAB PO; +TURM500C2 PO
[2017-09-21 17:19] LABS: ALBUMIN 4.1 gm/dl (3.4-5.0); ALKALINE PHOSPHATASE 91 U/L (45-117); ALT/SGPT 33 U/L (12-78); AST/SGOT 22 U/L (15-37); BLOOD UREA NITROGEN 13 mg/dl (7-18); CARBON DIOXIDE 29 mmol/L (21-32); CREATININE 0.71 mg/dl (0.60-1.20); GLUCOSE 99 mg/dl (70-99); POTASSIUM 3.4 mmol/L (3.5-5.1); SODIUM 134 mmol/L (136-145); TOTAL PROTEIN 7.8 gm/dl (6.4-8.2)
[2017-09-22 06:03] LABS: HEMOGLOBIN A1C 5.9 % (4.5-5.6)
== END | disposition home or self-care (01) ==
LOC: C.LAB1850 15:05
PROVIDERS: ATTEND Internal Medicine
DX: I10 Essential (primary) hypertension (principal); R73.9 Hyperglycemia, unspecified

== ENCOUNTER → 2017-09-23 | Day surgery (SDC) | payer OTHER ==
[2017-09-20 12:50] VITALS: Ht 165.1 cm; Wt 81.4 kg
[~2017-09-23] VITALS: Ht 165.1 cm; Wt 81.4 kg
[~2017-09-23] MED LIST changes: +ACETAMINOPHEN 325 MG TAB PO PRN; +ATROPINE SULFATE 0.1 MG/ML 5ML SYR IV PRN; +BACITRACIN 50000 UNIT VIAL ONE; +BUPIVACAINE 0.25% 30 ML VIAL ONE; +CEFAZOLIN 2000MG IV PUSH 15 ML IV SCH; +CEFAZOLIN SOD 1 GM VIAL ONE; +DEXAMETHASONE SOD INJ 4 MG/ML VIAL ONE; +EpHEDrine SULFATE 50MG/5ML SYR ONE; +EpHEDrine SULFATE INJ 50 MG/ML AMP IV PRN; +FENTANYL CITRATE INJ 50 MCG/1 ML 2 ML VIAL IV PRN; +FENTANYL CITRATE INJ 50 MCG/1 ML 2 ML VIAL ONE; +GENTAMICIN SULFATE 40 MG/ML 2 ML VIAL ONE; +HYDROCODONE/ACETAMIN 5/325MG TAB PO PRN; +LACTATED RINGER'S 1000ML 1,000 ML IV SCH; +LACTATED RINGER'S 1000ML 500 ML IV SCH; +LIDOCAINE HCL 2% 2 ML VIAL (20MG/ML) ONE; +LIDOCAINE/EPINEPHRINE 1% 20 ML VIAL ONE; +MIDAZOLAM HCL 1 MG/ML 2ML VIAL ONE; +MoRPHine SULFATE 2 MG/ML CARP IV PRN; +MoRPHine SULFATE 4 MG/ML 1 ML CARP\\VIAL IV PRN; +ONDANSETRON INJ 2 MG/ML 2 ML VIAL IV PRN; +ONDANSETRON INJ 2 MG/ML 2 ML VIAL ONE; +PROPOFOL IV EMULSION 10 MG/ML 20 ML VIAL ONE; +SODIUM CHLORIDE 0.9% 1000ML 1,000 ML IV SCH; +SODIUM CHLORIDE 0.9% INJ 10 ML VIAL ONE
--- NOTE | 2017-09-23 09:50 | [facility] Post Operative Brief Note ---
Immediate Operative Summary Operative Date Sep 23, 2017. Pre-Operative Diagnosis Encounter for breast reconstruction following mastectomy Post-Operative Diagnosis Same Procedure(s) Performed Left Breast Implant Exchange For Silicone Breast Implant Surgeon Dr. Sinclair [place] Manager Surgeon(s) None Estimated Blood Loss 1 ml Findings Consistent with Post-Op Diagnosis Specimens A.) Left Breast Scar & Capsule Drains None Anesthesia Type General Complication(s) none Disposition Disposition: Recovery Room / PACU
--- NOTE | 2017-09-23 09:54 | Discharge Instructions-SurgCtr ---
Discharge Instructions Date of Service Sep 23, 2017. Visit Reason for Visit: Encounter For Breast Reconstruction Following Mast Discharge Discharge Diagnosis / Problem: history of left breast cancer/breast reconstruction Discharge Goals Goal(s): Decrease discomfort, Improve function Medications Stopped Medications Name(s): HELD ASPIRIN 81MG AND ALL SUPPLEMENTS FOR ONE WEEK Activity Recommendations Activity Limitations: per Instructions/Follow-up section Anesthesia . Post Anesthesia Instructions: If you have had General Anesthesia or IV Sedation: * Do not drive today. * Resume driving when surgeon permits. * Do not make important decisions or sign legal documents today. * Call surgeon for: 1. Temperature elevations greater than 101 degrees F. 2. Uncontrollable pain. 3. Excessive bleeding. 4. Persistent nausea and vomiting. 5. Medication intolerance (nausea, vomiting or rash). * For nausea and vomiting use only clear liquids such as: tea, soda, bouillon until nausea subsides, then gradually increase diet as tolerated. * If you have any concerns or questions, call your surgeon's office. If physician is unavailable and it is an emergency, call 911 or go to the nearest emergency room. . Instructions / Follow-Up Instructions / Follow-Up ACTIVITY RECOMMENDATIONS: __Normal activities _x_No bending, lifting or straining __No driving _x_Driving allowed when you are off pain medications _x_Walking permitted __You should have help at home for ___ days DRESSINGS: __No dressings required _x_Keep dressings dry/in place until first office visit __Remove dressings ___ and leave dressings off __Apply ice ___ days __Remove dressings and reapply garment __Apply antibiotic ointment (Bacitracin, Neosporin, etc) to wounds 3-4 times/ day for 10 days BATHING: _x_Keep dressings dry _x_Sponge bathing permitted __Showering permitted __No swimming, hot tubs or soaking in a tub MEDICATIONS: Resume previous medications unless instructed otherwise by your surgeon. _x_Do not use aspirin, Motrin, Advil or Ibuprofen as these may promote bleeding. Please use Tylenol. _x_Prescription(s) provided: in office- pain med and antibiotic. Take antibiotic 3x/day OTHER INSTRUCTIONS: __Record drain output 2-3 times per day SPECIAL CARE INSTRUCTIONS: * It is normal to have a mild fever after surgery. If your temperature is higher than 101.5 degrees F, please call the office at [phone]. * Constipation is a typical side effect of pain medication. An over-the- counter stool softener will help relieve this. * Leaking around surgical drains may occur and should not cause concern. Sometimes these drains become clogged. If this happens, remove the bulb and milk the clot out of the tube, then replace the bulb. * Drainage from wounds after liposuction is normal and should be expected. Garments will become soiled. You should protect furniture and bedding. This drainage should mostly subside within 2-3 days. Leave garments in place unless instructed to remove them. * If you have unusual drainage from a wound or are concerned you have an infection or have any questions or concerns, please call the office at [phone]. FOLLOW UP VISIT: If not already scheduled, please call the office, , when you return home after surgery to schedule an appointment to be seen in ___ days. Diet Recommendations Home Diet: resume previous diet Procedures Procedures Performed: Left Breast Implant Exchange For Silicone Breast Implant Pending Studies Studies pending at discharge: no Medical Emergencies . Who to Call and When: Medical Emergencies: If at any time you feel your situation is an emergency, please call 911 immediately. . Non-Emergent Contact Non-Emergency issues call your: Primary Care Provider Call Non-Emergent contact if: temperature is above 101.5, your pain is not controlled . . "Provider Documentation" section prepared by Stefani Sinclair. . [place] Drug Monitoring Program Search Results: patient reviewed within database, no issues identified
--- NOTE | 2017-09-23 10:24 | Anesthesia Progress Nt - [facility] ---
Anesthesia Post Op Note Date & Time Sep 23, 2017 at 10:24 Vital Signs Pain Intensity: 0 Vital Signs Past 12 Hours Date Time Temp Pulse Resp B/P (MAP) Pulse Ox O2 Delivery O2 Flow Rate FiO2 09/23/17 10:02 36.3 67 12 125/82 98 Mask 4 09/23/17 07:35 36.7 62 18 150/92 (111) 100 Room Air Notes Mental Status: alert / awake / arousable, participated in evaluation Pt Amnestic to Procedure: Yes Nausea / Vomiting: adequately controlled Pain: adequately controlled Airway Patency, RR, SpO2: stable & adequate BP & HR: stable & adequate Hydration State: stable & adequate Anesthetic Complications: no major complications apparent
[2017-09-23 10:45] VITALS: TEMP 36.1
[2017-09-23 11:18] VITALS: BP 128/76; PULSE 63; O2SAT 98
--- NOTE | 2017-09-23 13:26 | OPERATIVE REPORT ---
DATE OF OPERATION: 09/23/2017 PREOPERATIVE DIAGNOSIS: Status post left mastectomy with first stage immediate reconstruction for breast cancer. POSTOPERATIVE DIAGNOSIS: Status post left mastectomy with first stage immediate reconstruction for breast cancer. PROCEDURE: Implant exchange for silicone breast implant on left. SURGEON: Stefani Sinclair MD [employer] MECHANIC: None. ANESTHESIA: General. COMPLICATIONS: None. INDICATION FOR THE PROCEDURE: The patient is a 77-year-old female who underwent a left mastectomy with immediate first stage reconstruction with a tissue senior technical writer and AlloDerm. She subsequently underwent tissue expansion in the office and when she achieved her final desired size, we scheduled implant exchange. BRIEF DESCRIPTION OF THE PROCEDURE: The risks, benefits and alternatives of the procedure were explained to the patient who agreed and signed consent. She was identified and marked in the preoperative holding area. She was brought to the operating room where she was positioned supine and placed under anesthesia without incident. Surgical site was prepped and draped sterilely. Both breasts were prepped into the sterile field and a Tegaderm was placed over the right nipple. Once she has been placed and timeout procedure had been performed, a portion of the left mastectomy incision was marked in a narrow ellipse for access. 1% lidocaine with epinephrine was used to anesthetize the skin. A 15-blade scalpel was used to make the incision and remove the scar which was sent for pathology. Electrocautery was used to deepen the incision through underlying subcutaneous fat and pectoralis major muscle and AlloDerm. The senior technical writer was identified. It was punctured and the saline was aspirated out. The senior technical writer was carefully removed from its capsule. Displacement was used to determine approximate volume of the senior technical writer, which was roughly 75 mL. Pocket was explored and there was no evidence of bleeding. There were 2 small areas of folded capsule which were directly excised using electrocautery and passed off with the specimen. I selected a 605 mL Allergan Natrelle Inspira implant style SSF, and this was placed into the pocket. Temporary sutures were placed and the patient was placed in a seated position. There was excellent symmetry between the 2 breasts. The implant was removed, gloves were changed, pocket irrigated with normal saline and packed using a lap sponge soaked in antibiotic irrigation and Marcaine. I selected a permanent 605 mL Allergan Natrelle Inspira SSF implant which was soaked in antibiotic irrigation. Lap sponges were removed from the pocket, skin was closed using triple antibiotic irrigation as were all instruments. Gloves were changed. The implant was placed into the pocket and seated with the valve posteriorly. The capsule was closed using 2-0 Vicryl interrupted sutures, deep dermis closed using 2-0 Vicryl interrupted sutures, superficial dermis closed with 3-0 PDS interrupted dermal sutures and 3-0 Monocryl running subcuticular suture was placed followed by Dermabond. Dry dressings and a surgical bra were placed. The patient tolerated the procedure well. She was awakened and transferred to recovery room in satisfactory condition. I attest to the content of the Intraoperative Record and any orders documented therein. Any exception s are noted below.
== END | disposition home or self-care (01) ==
LOC: X.SURG 07:23
PROVIDERS: ATTEND Plastic Surgery
DX: Z42.1 Encounter for breast reconstruction following mastectomy (principal); C50.912 Malignant neoplasm of unspecified site of left female breast; I10 Essential (primary) hypertension; Z92.21 Personal history of antineoplastic chemotherapy; E78.5 Hyperlipidemia, unspecified; Z80.3 Family history of malignant neoplasm of breast; Z79.899 Other long term (current) drug therapy; Z88.8 Allergy status to other drugs, medicaments and biological substances

== ENCOUNTER 2021-12-08 13:57 | Inpatient (IN) ==
[2021-12-08 15:18] LABS: Albumin Globulin Ratio 2.3 (0.9-2); Albumin Level 3.7 gm/dl (3.4-5.0); BUN Creatinine Ratio 16.7 (10-20); Bilirubin,Total 0.2 mg/dl (0.2-1.0); Calcium 8.3 mg/dl (8.5-10.1); Creatinine Clr Calc Pharmacy 53.3 ml/min; Est GFR (African American) 76.1 ml/min; Est GFR (Non-African American) 65.6 ml/min; Globulin 1.6 gm/dl (2.5-4.0); Potassium 3.4 mmol/L (3.5-5.1); Total Protein 5.3 gm/dl (6.0-8.3)
[2021-12-08 15:21] LABS: Appearance Urine Turbid (Clear); Bilirubin Urine Negative (Negative); Blood Urine 3+ (Negative); Color Urine Red; Glucose Urine UA Negative (Negative); Ketones Urine Negative (Negative); Leukocyte Esterase Urine Trace (Negative); Nitrite Urine Negative (Negative); Protein Urine 3+ (Negative); Specific Gravity Urine 1.025 (1.000-1.030); Urobilinogen Urine Negative (Negative); pH Urine 7.5 (4.5-7.5)
[2021-12-08 15:28] LABS: Epithelial Cell Urine 0-5 /lpf (0-5); RBC Urine >30 /hpf (0-4)
[2021-12-08 15:30] LABS: Bacteria Urine Negative (Negative)
[2021-12-08 15:41] LABS: Hematocrit (blood only) 16.2 % (34.1-44.9); Hemoglobin 5.5 g/dl (12.0-16.0)
[2021-12-08 15:43] LABS: Mean Corpuscular Volume 94.2 fL (80.0-100.0); Mean Platelet Volume 9.1 fL (9.4-12.3); Platelet Count 254 K/uL (130-400); RDW Coefficient of Variation 13.6 % (11.5-14.5); RDW Standard Deviation 46.4 fL (36.4-46.3); Red Blood Count 1.72 M/uL (3.93-5.22); White Blood Count 5.96 K/ul (4.8-10.8)
[2021-12-08] MEDS ORDERED: SODIUM CHLORIDE 0.9% 250 ML IV PRN (15:59)
[2021-12-08 16:03] LABS: Basophils # (auto) 0.03 K/uL (0-0.2); Basophils % (auto) 0.5 %; Eosinophils # (auto) 0.01 K/uL (0-0.50); Eosinophils % (auto) 0.2 %; Immature Granulocytes # (auto) 0.03 K/uL (0.00-0.02); Immature Granulocytes % (auto) 0.5 %; Lymphocytes # (auto) 1.23 K/uL (1.2-3.4); Lymphocytes % (auto) 20.6 %; Monocytes # (auto) 0.37 K/uL (0.24-0.82); Monocytes % (auto) 6.2 %; Neutrophils # (auto) 4.29 K/uL (1.4-6.5)
--- NOTE | 2021-12-08 16:21 | Electrocardiogram Report ---
Test Reason : Blood Pressure : / mmHG Vent. Rate : 069 BPM Atrial Rate : 069 BPM P-R Int : 132 ms QRS Dur : 086 ms QT Int : 438 ms P-R-T Axes : 090 005 -20 degrees QTc Int : 469 ms Poor data quality, interpretation may be adversely affected Normal sinus rhythm Nonspecific ST and T wave abnormality Abnormal ECG When compared with ECG of 13-AUG-2019 15:21, Vent. rate has decreased BY 40 BPM Nonspecific T wave abnormality, worse in Anterior leads Confirmed by Joe Chang ([id number]) on 12/08/2021 4:21:19 PM Referred By: Confirmed By:Cj Chang
[2021-12-08] MEDS ORDERED: OPTIRAY 300 500mL IV ONE (16:51)
--- NOTE | 2021-12-08 17:25 | CT Scan Report ---
CT ANGIOGRAPHY OF THE ABDOMEN AND PELVIS CLINICAL HISTORY: Hematuria. COMPARISON STUDY: PET/CT January 16, 2017. CT of the abdomen and pelvis December 02, 2021. TECHNIQUE: Helical axial images of the abdomen and pelvis were obtained during arterial phase followi ng intravenous injection of 107 cc of Optiray 300 IV. Sagittal and coronal reconstructions were viewe d as well as maximal intensity projections on an independent 3-D workstation. Automated exposure cont rol was utilized for the study. A dose lowering technique was utilized adhering to the principles of ALARA. FINDINGS: Left breast implant is incidentally noted. No pneumatosis, free air or portal venous gas is present. Multiple hepatic lesions are unchanged from earlier exams. These measure up to 2 cm and are likely benign. There are no new hepatic lesions. Arterial phase images of the spleen, adrenal glands and pancreas are unremarkable. There is no biliary or pancreatic ductal dilatation. There is no evid ence for a bowel obstruction. Prominence of the endometrium is better depicted on CT of November 24, 2021. There is a 2.3 cm calcified fibroid. There is no fluid collection to suggest an abscess. Endom etrial prominence is better depicted on CT of December 02, 2021. Note is again made of dilatation of the right upper pole calyces and the right renal pelvis. There is a suspected underlying mass within the right upper quadrant consistent which may extend into the parenchyma. There is mild associated a trophy. No additional urothelial lesions are identified on this arterial phase exam. The caliber of t he abdominal aorta is normal. There is no dissection or aneurysm within the abdomen or pelvis. There is mild stenosis at the origin the celiac axis. The remainder of the vessels are patent. There is mil d atherosclerotic plaque. IMPRESSION: 1. Normal caliber abdominal aorta with mild atherosclerotic plaque. No aneurysm within the abdomen or pelvis. No dissection. Mild narrowing at the origin of the celiac axis. 2. Intraluminal mass-like abnormality within the right upper collecting system which may extend into the renal parenchyma, as shown on CT of December 02, 2021. 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 Nonemergent Urology consultation is recommended. ACT 112: Positive. There are findings on this exam that require communication between the performing entity and the patient following Patient Test Result Information Act ([place] Act 112) guidelines. Electronically signed by: Dave Schofield M.D. 12/08/2021 5:22 PM
--- NOTE | 2021-12-08 17:46 | Emergency Department Note ---
History of Present Illness General Chief complaint: Urinary Symptoms Stated complaint: BLOOD IN URINE Time Seen by Provider: 12/08/21 15:57 History of Present Illness Provider complaint: hematuria Onset (ago): week(s) 1 Associated symptoms: + shortness of breath; no chest pain, no cough, no fever/chills, no headaches or no nausea/vomiting 81-year-old female presents emergency department for hematuria. Patient reports she has been having increasing hematuria over the last week. Patient reports she is torie large amounts of blood and is now feeling short of breath. No chest pain. No syncope. No abdominal pain. No dysuria. No fever. Home Medications Medication Instructions Recorded Confirmed Type cholecalciferol (vitamin D3) 50 50 mcg PO HS 08/13/19 11/23/21 History mcg (2,000 unit) tablet (Vitamin D3) calcium carbonate-vitamin D3 1 tab PO DAILY 08/17/19 11/23/21 History [Oyster Shell Calcium-Vit D3] triamcinolone acetonide 0.1 % 1 appln topical BID #15 grams 08/22/19 11/23/21 Rx topical cream tamoxifen 10 mg tablet 10 mg PO DAILY 12/27/19 11/23/21 History bisoprolol 10 1 tab PO BID #180 tabs 07/10/21 11/23/21 Rx mg-hydrochlorothiazide 6.25 mg tablet atorvastatin 40 mg tablet 40 mg PO HS #90 tabs 08/17/21 11/23/21 Rx hydralazine 50 mg tablet 50 mg PO BID #180 tabs 08/17/21 11/23/21 Rx potassium chloride 20 mEq 20 meq PO QAM #90 tabs 08/17/21 11/23/21 Rx tablet,extended release Allergies Allergy/AdvReac Type Severity Reaction Status Date / Time terbinafine Allergy Intermediate rash Verified 11/23/21 13:13 lisinopril AdvReac Mild cough Verified 11/23/21 13:13 Past Med/Surg History Medical History Age related osteoporosis osteopenia Atypical ductal hyperplasia, breast Breast cancer, left Complaint of wax in ear Encounter for pre-operative examination History of chemotherapy with right breast Hyperlipidemia Hypertension Osteopenia Tachycardia episode when forgot to take her medications that day. Surgical History H/O lumpectomy right -- chemo and radiation and then found cancer on the left History of cataract surgery RT History of mastectomy (04/06/17) Left Mastectomy with sentinel lymph node biopsy Hx of tonsillectomy Ovarian cystadenoma age 20 and removed ovary and appendix Family History Mother Heart disease Breast cancer Aunt Breast cancer Father Prostate cancer Denies family history of Colon cancer Ovarian cancer Myocardial infarction Social History Smoking Status: Never smoker Second Hand Exposure: No; Hx Alcohol Use: Yes Alcohol type: wine Hx Substance Use: No Preferred Language: [place] Communication Ability: Effective Visual Impairment: No Limitations Hearing Ability: Normal Authorization Coordinator Required: No Beliefs That Will Affect Care: None marital status: Current Living Situation: Spouse current occupational status: retired Feels Safe at Home: Yes Dental Care, Regularly: Yes Physical Activity Frequency: 3-4 Times per Week Seatbelt Use: always Sunscreen Use: Yes (OCCASIONALLY ) Assistive Devices: Glasses Review of Systems A total of 10 systems reviewed and were otherwise negative Physical Exam Vital Signs Vital Signs - 24 hr 12/08/21 14:12 12/08/21 16:16 12/08/21 17:39 Temperature 37 C 36.6 C Temperature Source Temporal Artery Scan Oral Pulse Rate 86 65 Pulse Rate [Apical] 68 Pulse Rhythm Regular Pulse Strength Normal Respiratory Rate 20 18 18 Respiratory Effort / Characteristics Non-Labored Spontaneous Respiratory Depth Normal Respiratory Pattern Regular Blood Pressure 128/65 95/69 L Blood Pressure [Right Arm] 119/67 Blood Pressure Mean 86 77 Blood Pressure Mean [Right Arm] 84 Blood Pressure Position Pulse Oximetry 100 99 98 Oxygen Delivery Method Room Air Room Air Oxygen Flow Rate 0 Sepsis Recent Fever Within 48 Hours No Sepsis New/Unexplained Change in Mental Status No Sepsis Action Taken by Nursing No Action Required 12/08/21 17:55 Temperature 37.1 C Temperature Source Oral Pulse Rate 67 Pulse Rate [Apical] Pulse Rhythm Regular Pulse Strength Normal Respiratory Rate 18 Respiratory Effort / Characteristics Respiratory Depth Respiratory Pattern Blood Pressure 122/67 Blood Pressure [Right Arm] Blood Pressure Mean 85 Blood Pressure Mean [Right Arm] Blood Pressure Position Sitting Pulse Oximetry 100 Oxygen Delivery Method Oxygen Flow Rate 0 Sepsis Recent Fever Within 48 Hours Sepsis New/Unexplained Change in Mental Status Sepsis Action Taken by Nursing Physical Exam GENERAL: She is oriented to person, place, and time. She appears well-developed and well-nourished. She does not appear distressed. HENT: Exam performed. -Head: Normocephalic and atraumatic. -Right Ear: External ear normal. No mastoid tenderness. -Left Ear: External ear normal. No mastoid tenderness. -Mouth/Throat: The oropharynx is clear and moist. No trismus in the jaw. No dental abscesses or uvula swelling. No oropharyngeal exudate or tonsillar abscesses. EYES: Conjunctivae and EOM are normal. Pupils are equal, round, and reactive to light. Right eye exhibits no discharge. Left eye exhibits no discharge. No scleral icterus. NECK: Normal range of motion. Neck supple. No JVD present. No spinous process tenderness present. No carotid bruit present. No rigidity. No tracheal deviation and normal range of motion present. No Brudzinski's sign and no Kernig's sign noted. CV: Normal rate, regular rhythm, normal heart sounds and intact distal pulses. There is no peripheral edema. Palpable radial pulses bue. PULM/CHEST: Effort normal and breath sounds normal. No respiratory distress. No stridor. She has no wheezes. She has no rales. -Chest Wall: She exhibits no tenderness. ABD: The abdomen is soft. Bowel sounds are normal. She has no distension. No mass is present. There is no tenderness. There is no rebound, no guarding, no Downs's sign and no tenderness at McBurney's point. Rovsig negative MUSC/SKEL: Normal range of motion. There is no peripheral edema, tenderness or deformity. LYMPH: No cervical adenopathy. NEURO: She is alert and oriented to person, place, and time. She has normal strength. No cranial nerve deficit or sensory deficit. Coordination and gait normal. GCS eye subscore is 4. GCS verbal subscore is 5. GCS motor subscore is 6. Cerebellar tests wnl. SKIN: Skin is warm and dry. She is not diaphoretic. PSYCH: She has a normal mood and affect. Behavior is normal. Judgment and thought content normal. Course Course 1557: The patient was evaluated in room A4. A complete history and physical exam was performed Cardiac monitoring: An order was placed for continuous cardiac monitoring. The monitor shows a rate of 60 with sinus rhythm Reviewed. Patient blood work done on November 27 which showed hemoglobin 11.4. CT of the abdomen number 28th which showed large slightly hyperdense filling defect in the right upper pole collecting system extending into the right renal pelvis and proximal ureter. May simply represent blood clots. Underlying urethral neoplasm not excluded. Additional filling defects are seen throughout the remainder of the right ureter representing blood products. Mild hydronephrosis the right upper pole collecting system. No evidence of urothelial lesion in the left renal collecting system of the left ureter. Patient was seen during a time of extreme volume and extreme acuity in the emergency department. Nursing triage protocols were initiated and labs were drawn by protocol in the triage area. Patient's hemoglobin is 5.5 approximately six-point drop in the last 2 weeks. Patient denies any melena or hematochezia only reporting hematuria passing large blood clots. We will arrange for transfusion of 2 units packed red blood cells for the patient. We will contact urology to discuss imaging options. 1633: Spoke with urology Dr. Greco he states to obtain CT of the abdomen pelvis to make sure there is no active bleeding because if there is active bleeding she might need transfer. 1746: Vital signs stable. CTA of the abdomen pelvis did not show any active extravasation and did show luminal mass within the right upper collecting system extending into the renal parenchyma highly suspicious for transitional cell carcinoma. Discussed the scan with Dr. Greco again who reviewed the images himself and states that the patient should be admitted to medicine and received blood transfusion as planned. He states he will evaluate the patient on the inpatient side. Dr. [facility] team will be notified. Administered Medications Discontinued Medications Ioversol (Optiray 300 500ml) 107 ml IV ONCE ONE Stop: 12/08/21 16:52 Last Admin: 12/08/21 16:52 Dose: 107 ml Documented By: JAZIEL Critical Care Time Critical Care Time: Yes Total Critical Care Time: 80 I have personally spent greater than 80 minutes of critical care time in the direct management of this patient. This includes bedside care, interpretation of diagnostic studies, and testing, discussion with consultants, patient, and family members, and other required patient management activities. This 80 minutes is in excess of all separately billable procedures. Medical Decision Making Laboratory Data Result diagrams: 12/08/21 14:41 12/08/21 14:41 Lab Results 12/08/21 12/08/21 12/08/21 Range/Units 14:41 14:41 14:51 WBC 5.96 (4.8-10.8) K/ul RBC 1.72 L (3.93-5.22) M/uL Hgb 5.5 L* (12.0-16.0) g/dl Hct 16.2 L* (34.1-44.9) % MCV 94.2 (80.0-100.0) fL MCH 32.0 (25.0-34.0) pg MCHC 34.0 (32.0-36.0) g/dL RDW Std Deviation 46.4 H (36.4-46.3) fL RDW Coeff of Eva 13.6 (11.5-14.5) % Plt Count 254 (130-400) K/uL MPV 9.1 L (9.4-12.3) fL Immature Gran % (Auto) 0.5 % Neut % (Auto) 72.0 % Lymph % (Auto) 20.6 % [place] % (Auto) 6.2 % Eos % (Auto) 0.2 % Baso % (Auto) 0.5 % Neut # (Auto) 4.29 (1.4-6.5) K/uL Lymph # (Auto) 1.23 (1.2-3.4) K/uL [place] # (Auto) 0.37 (0.24-0.82) K/uL Eos # (Auto) 0.01 (0-0.50) K/uL Baso # (Auto) 0.03 (0-0.2) K/uL Immature Gran # (Auto) 0.03 H (0.00-0.02) K/uL Sodium 135 L (136-145) mmol/L Potassium 3.4 L (3.5-5.1) mmol/L Chloride 103 (98-107) mmol/L Carbon Dioxide 25 (21-32) mmol/L Anion Gap 7 (3-11) BUN 14 (6-23) mg/dl Creatinine 0.84 (0.6-1.2) mg/dl Est Cr Clr Drug Dosing 53.3 ml/min Est GFR ( Amer) 76.1 ml/min Est GFR (Non-Af Amer) 65.6 ml/min BUN/Creatinine Ratio 16.7 (10-20) Glucose 124 H (70-99(Fasting)) mg/dl Calcium 8.3 L (8.5-10.1) mg/dl Total Bilirubin 0.2 (0.2-1.0) mg/dl AST 13 (13-39) U/L ALT 12 (7-52) U/L Alkaline Phosphatase 33 L (34-104) U/L Total Protein 5.3 L (6.0-8.3) gm/dl Albumin 3.7 (3.4-5.0) gm/dl Globulin 1.6 L (2.5-4.0) gm/dl Albumin/Globulin Ratio 2.3 H (0.9-2) Urine Color Red Urine Appearance Turbid A (Clear) Urine pH 7.5 (4.5-7.5) Ur Specific [place] 1.025 (1.000-1.030) Urine Protein 3+ H (Negative) Urine Glucose (UA) Negative (Negative) Urine Ketones Negative (Negative) Urine Blood 3+ H (Negative) Urine Nitrite Negative (Negative) Urine Bilirubin Negative (Negative) Urine Urobilinogen Negative (Negative) Ur Leukocyte Esterase Trace H (Negative) Urine RBC >30 H (0-4) /hpf Urine WBC 10-30 H (0-5) /hpf Ur Epithelial Cells 0-5 (0-5) /lpf Urine Bacteria Negative (Negative) Blood Type Blood Type Recheck Antibody Screen Crossmatch 12/08/21 12/08/21 Range/Units 16:10 16:23 WBC (4.8-10.8) K/ul RBC (3.93-5.22) M/uL Hgb (12.0-16.0) g/dl Hct (34.1-44.9) % MCV (80.0-100.0) fL MCH (25.0-34.0) pg MCHC (32.0-36.0) g/dL RDW Std Deviation (36.4-46.3) fL RDW Coeff of Eva (11.5-14.5) % Plt Count (130-400) K/uL MPV (9.4-12.3) fL Immature Gran % (Auto) % Neut % (Auto) % Lymph % (Auto) % [place] % (Auto) % Eos % (Auto) % Baso % (Auto) % Neut # (Auto) (1.4-6.5) K/uL Lymph # (Auto) (1.2-3.4) K/uL [place] # (Auto) (0.24-0.82) K/uL Eos # (Auto) (0-0.50) K/uL Baso # (Auto) (0-0.2) K/uL Immature Gran # (Auto) (0.00-0.02) K/uL Sodium (136-145) mmol/L Potassium (3.5-5.1) mmol/L Chloride (98-107) mmol/L Carbon Dioxide (21-32) mmol/L Anion Gap (3-11) BUN (6-23) mg/dl Creatinine (0.6-1.2) mg/dl Est Cr Clr Drug Dosing ml/min Est GFR ( Amer) ml/min Est GFR (Non-Af Amer) ml/min BUN/Creatinine Ratio (10-20) Glucose (70-99(Fasting)) mg/dl Calcium (8.5-10.1) mg/dl Total Bilirubin (0.2-1.0) mg/dl AST (13-39) U/L ALT (7-52) U/L Alkaline Phosphatase (34-104) U/L Total Protein (6.0-8.3) gm/dl Albumin (3.4-5.0) gm/dl Globulin (2.5-4.0) gm/dl Albumin/Globulin Ratio (0.9-2) Urine Color Urine Appearance (Clear) Urine pH (4.5-7.5) Ur Specific [place] (1.000-1.030) Urine Protein (Negative) Urine Glucose (UA) (Negative) Urine Ketones (Negative) Urine Blood (Negative) Urine Nitrite (Negative) Urine Bilirubin (Negative) Urine Urobilinogen (Negative) Ur Leukocyte Esterase (Negative) Urine RBC (0-4) /hpf Urine WBC (0-5) /hpf Ur Epithelial Cells (0-5) /lpf Urine Bacteria (Negative) Blood Type B Negative Blood Type Recheck B Negative Antibody Screen NEGATIVE Crossmatch See Detail Imaging Data Radiologist's Impression: Abdomen/Pelvis CTA 12/08/21 16:32 CT ANGIOGRAPHY OF THE ABDOMEN AND PELVIS CLINICAL HISTORY: Hematuria. COMPARISON STUDY: PET/CT January 16, 2017. CT of the abdomen and pelvis December 02, 2021. TECHNIQUE: Helical axial images of the abdomen and pelvis were obtained during arterial phase following intravenous injection of 107 cc of Optiray 300 IV. Sagittal and coronal reconstructions were viewed as well as maximal intensity projections on an independent 3-D workstation. Automated exposure control was utilized for the study. A dose lowering technique was utilized adhering to the principles of ALARA. FINDINGS: Left breast implant is incidentally noted. No pneumatosis, free air or portal venous gas is present. Multiple hepatic lesions are unchanged from earlier exams. These measure up to 2 cm and are likely benign. There are no new hepatic lesions. Arterial phase images of the spleen, adrenal glands and pancreas are unremarkable. There is no biliary or pancreatic ductal dilatation. There is no evidence for a bowel obstruction. Prominence of the endometrium is better depicted on CT of November 24, 2021. There is a 2.3 cm calcified fibroid. There is no fluid collection to suggest an abscess. Endometrial prominence is better depicted on CT of December 02, 2021. Note is again made of dilatation of the right upper pole calyces and the right renal pelvis. There is a suspected underlying mass within the right upper quadrant consistent which may extend into the parenchyma. There is mild associated atrophy. No additional urothelial lesions are identified on this arterial phase exam. The caliber of the abdominal aorta is normal. There is no dissection or aneurysm within the abdomen or pelvis. There is mild stenosis at the origin the celiac axis. The remainder of the vessels are patent. There is mild atherosclerotic plaque. IMPRESSION: 1. Normal caliber abdominal aorta with mild atherosclerotic plaque. No aneurysm within the abdomen or pelvis. No dissection. Mild narrowing at the origin of the celiac axis. 2. Intraluminal mass-like abnormality within the right upper collecting system which may extend into the renal parenchyma, as shown on CT of December 02, 2021. 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 Nonemergent Urology consultation is recommended. ACT 112: Positive. There are findings on this exam that require communication between the performing entity and the patient following Patient Test Result Information Act ([place] Act 112) guidelines. Electronically signed by: Dave Schofield M.D. 12/08/2021 5:22 PM ECG Data Indication: + other (anemia) Rate (beats per minute): 69 Rhythm: + normal sinus ECG Intervals/blocks: + Normal QRS, + Normal [place] and + Normal QT-c ECG ST segments: + Normal ST segments MDM Narrative 1557: The patient was evaluated in room A4. A complete history and physical exam was performed Cardiac monitoring: An order was placed for continuous cardiac monitoring. The monitor shows a rate of 60 with sinus rhythm Reviewed. Patient blood work done on November 27 which showed hemoglobin 11.4. CT of the abdomen number 28th which showed large slightly hyperdense filling defect in the right upper pole collecting system extending into the right renal pelvis and proximal ureter. May simply represent blood clots. Underlying urethral neoplasm not excluded. Additional filling defects are seen throughout the remainder of the right ureter representing blood products. Mild hydro nephrosis the right upper pole collecting system. No evidence of urothelial lesion in the left renal collecting system of the left ureter. Patient was seen during a time of extreme volume and extreme acuity in the emergency department. Nursing triage protocols were initiated and labs were drawn by protocol in the triage area. Patient's hemoglobin is 5.5 approximately six-point drop in the last 2 weeks. Patient denies any melena or hematochezia only reporting hematuria passing large blood clots. We will arrange for transfusion of 2 units packed red blood cells for the patient. We will contact urology to discuss imaging options. 1633: Spoke with urology Dr. Greco he states to obtain CT of the abdomen pelvis to make sure there is no active bleeding because if there is active bleeding she might need transfer. 1746: Vital signs stable. CTA of the abdomen pelvis did not show any active extravasation and did show luminal mass within the right upper collecting system extending into the renal parenchyma highly suspicious for transitional cell carcinoma. Discussed the scan with Dr. Greco again who reviewed the images himself and states that the patient should be admitted to medicine and received blood transfusion as planned. He states he will evaluate the patient on the inp atient side. Dr. Casanova [facility] hospitalist team will be notified. Impression & Plan Anemia, Transitional cell carcinoma, Hematuria Discharge Plan Visit Data Chief Complaint: Urinary Symptoms Stated Complaint: BLOOD IN URINE ED Provider: Michael Velez Discharge Problem: Anemia, Transitional cell carcinoma, Hematuria Patient Disposition: Admitted As Inpatient Forms Stand Alone Forms: [facility] Prescriptions Prescriptions: No Action bisoprolol-hydrochlorothiazide 10-6.25 mg tablet 1 tab PO BID Qty: 180 3RF hydralazine 50 mg tablet 50 mg PO BID Qty: 180 2RF atorvastatin 40 mg tablet 40 mg PO HS Qty: 90 1RF potassium chloride 20 mEq tablet extended release 20 meq PO QAM Qty: 90 3RF tamoxifen 10 mg tablet 10 mg PO DAILY triamcinolone acetonide 0.1 % cream 1 appln TOP BID Qty: 15 1RF calcium carbonate-vitamin D3 1 tab PO DAILY cholecalciferol (vitamin D3) [Vitamin D3] 50 mcg (2,000 unit) Tablet 50 mcg PO HS Referrals Referrals: Avi Ball MD [Primary Care Provider] -
--- NOTE | 2021-12-08 18:43 | History & Physical Report ---
Date of Service December 08, 2021 Assessment & Plan (1) Anemia: (2) Transitional cell carcinoma: (3) Hematuria: (4) Hypertension: (5) Hyperlipidemia: (6) History of mastectomy: (7) Dyspnea on exertion: Lang Camacho is a 81 y/o female who presented to the ED with painless hematuria over 2+ weeks in addition to shortness of breath/weakness. Her PMH includes HTN, HLD, hx of r. breast cancer (lumpectomy and left mastectomy-2017), and osteopenia. Hematuria/Concern for Transitional Cell Carcinoma -Suspect non-glomerular hematuria -UA: turbid, 3+ urine blood, 3+ urine protein -Urology consulted, appreciate recommendations -CTA (12/08): "intraluminal mass-like abnormality within right upper collecting system which may extend into renal parenchyma." -Concern for transitional cell carcinoma -CT (11/27): "slightly hyperdense filling defect in the right upper pole collecting system extending into right renal pelvis." -Urine culture collected -Bladder scan as needed Anemia -Normocytic anemia, likely from hematuria -Hemoglobin: 5.5 (down from 11.4 two weeks ago) -CTA today did not show any active extravasation -Currently transfusing 2 units PRBCs -Vitals stable, will continue to monitor -APTT, INR wnl -Repeat CBC in AM Dyspnea on Exertion -O2 sat 100% on room air -Lungs CTAB, no LE edema -Likely 2/2 to drop in hemoglobin Hypertension -Continue home regimen of Hydralazine, Bisoprolol-hydrochlorothiazide Hyperlipidemia -Continue atorvastatin Hx of Breast Cancer -Continue tamoxifen Diet: NPO at midnight DVT PPx: SCDs Code Status: Full Code Dispo: Telemetry History of Present Illness Chief Complaint: Hematuria and shortness of breath Primary Care Provider: Avi Ball MD Janice Duncan is a 81 y/o female who presented to the ED with complaint of hematuria and shortness of breath. Her PMH includes HTN, HLD, hx of r. breast cancer (lumpectomy and left mastectomy-2017), and osteopenia. She originally presented to her PCP on 11/23 for hematuria that began on 11/20, she had a UA and CT scan at that time- was also referred to Urology but appointment was not until . She notes that since then she has had hematuria continuously since onset and intermittent clots. States her urine output has been normal, denies any increased frequency or urgency. She notes that she has had increasing shortness of breath and weakness with any exertion, admits to some dizziness but no syncope. Patient states she has been able to do her normal activities at home, visit her , etc. but has had shortness of breath with any activity. She states today she decided she could not wait until to see the urologist as her shortness of breath and hematuria were not improving, so she presented to the ED. She denies any fever, chills, nausea, vomiting, abdominal pain, chest pain/pressure, back/flank pain. Denies melena but notes her hematuria has made it difficult to see in her toilet bowl. Denies any changes in medication and does not take any anticoagulants, aspirin, etc. States she has not had any recent illness. Janice states she has had a lot of stress recently, in the past few weeks her who has depression was moved to a [facility]. She states that she now lives alone at home, but has a twin sister in [place] who she is very close with (Melvina Mayfield [phone]). She requests that her niece/nephew are added as contacts for as they are in the medical field: Taryn Acosta [phone], Qasim Acosta [phone]. Allergies Allergy/AdvReac Type Severity Reaction Status Date / Time terbinafine Allergy Intermediate rash Verified 12/08/21 18:28 lisinopril AdvReac Mild cough Verified 12/08/21 18:28 Home Medications Medication Instructions Recorded Confirmed Type cholecalciferol (vitamin D3) 50 50 mcg PO QPM 08/13/19 12/08/21 History mcg (2,000 unit) tablet (Vitamin D3) calcium carbonate-vitamin D3 1 tab PO QPM 08/17/19 12/08/21 History [Oyster Shell Calcium-Vit D3] tamoxifen 10 mg tablet 10 mg PO QPM 12/27/19 12/08/21 History bisoprolol 10 1 tab PO BID #180 tabs 07/10/21 12/08/21 Rx mg-hydrochlorothiazide 6.25 mg tablet hydralazine 50 mg tablet 50 mg PO BID #180 tabs 08/17/21 12/08/21 Rx potassium chloride 20 mEq 20 meq PO QAM #90 tabs 08/17/21 12/08/21 Rx tablet,extended release atorvastatin 40 mg tablet 40 mg PO QPM 12/08/21 12/08/21 History triamcinolone acetonide 0.1 % 1 appln topical BID PRN Skin 12/08/21 12/08/21 History topical cream Irritation Past Med/Surg History Medical History Age related osteoporosis osteopenia Atypical ductal hyperplasia, breast Breast cancer, left Complaint of wax in ear Encounter for pre-operative examination History of chemotherapy with right breast Hyperlipidemia Hypertension Osteopenia Tachycardia episode when forgot to take her medications that day. Surgical History H/O lumpectomy right -- chemo and radiation and then found cancer on the left History of cataract surgery RT History of mastectomy (04/06/17) Left Mastectomy with sentinel lymph node biopsy Hx of tonsillectomy Ovarian cystadenoma age 20 and removed ovary and appendix Family History Mother Heart disease Breast cancer Aunt Breast cancer Father Prostate cancer Denies family history of Colon cancer Ovarian cancer Myocardial infarction Social History Smoking Status: Never smoker Second Hand Exposure: No; Do You Dip or Chew Tobacco: No; Tobacco Cessation Education Requested by Patient: No Hx Alcohol Use: Yes Alcohol type: wine Hx Substance Use: No Preferred Language: Slovenian Communication Ability: Effective Visual Impairment: No Limitations Hearing Ability: Normal Order Puller Required: No Beliefs That Will Affect Care: None marital status: Current Living Situation: Alone Current Living Situation Comment: Home alone, recent placement of to [place] current occupational status: retired Other Information That Helps Us Care for You: No Feels Safe at Home: Yes Safety Concerns: Feels Safe At This Time Dental Care, Regularly: Yes Physical Activity Frequency: 3-4 Times per Week Seatbelt Use: always Sunscreen Use: Yes (OCCASIONALLY ) Assistive Devices: None Review of Systems Review of Systems: As per HPI Physical Exam Eyes: PERRL, conjunctivae normal, anicteric sclerae ENMT: external ear and nose normal, oropharynx normal mild pallor of mucus membranes Neck: trachea midline, no thyromegaly Respiratory: normal respiratory effort, lungs clear to auscultation Cardiovascular: RRR, no murmur, no edema Gastrointestinal (Abdomen): normal bowel sounds, soft, nontender, no hepatosplenomegaly Musculoskeletal: no lower back pain or CVA tenderness Psychiatric: A+Ox3, euthymic affect Results & Data Results & Data ([facility]) Vital Signs (Past 12 Hours) Vital Signs Temp Pulse Pulse Resp BP BP Pulse Ox 12/08/21 18:10 37.1 C 82 18 118/65 100 12/08/21 17:55 37.1 C 67 18 122/67 100 12/08/21 17:39 36.6 C 65 18 95/69 L 98 12/08/21 16:16 68 18 119/67 99 12/08/21 14:12 37 C 86 20 128/65 100 O2 Del Method O2 Flow Rate 12/08/21 18:10 0 12/08/21 17:55 0 12/08/21 17:39 0 12/08/21 16:16 Room Air 12/08/21 14:12 Room Air Laboratory Results 12/08/21 12/08/21 12/08/21 Range/Units 18:21 16:23 16:10 WBC (4.8-10.8) K/ul RBC (3.93-5.22) M/uL Hgb (12.0-16.0) g/dl Hct (34.1-44.9) % MCV (80.0-100.0) fL MCH (25.0-34.0) pg MCHC (32.0-36.0) g/dL RDW Std Deviation (36.4-46.3) fL RDW Coeff of Eva (11.5-14.5) % Plt Count (130-400) K/uL MPV (9.4-12.3) fL Immature Gran % (Auto) % Neut % (Auto) % Lymph % (Auto) % [place] % (Auto) % Eos % (Auto) % Baso % (Auto) % Neut # (Auto) (1.4-6.5) K/uL Lymph # (Auto) (1.2-3.4) K/uL [place] # (Auto) (0.24-0.82) K/uL Eos # (Auto) (0-0.50) K/uL Baso # (Auto) (0-0.2) K/uL Immature Gran # (Auto) (0.00-0.02) K/uL PT (9.0-12.0) Seconds INR (0.9-1.1) APTT (21.0-31.0) Seconds PTT Ratio Sodium (136-145) mmol/L Potassium (3.5-5.1) mmol/L Chloride (98-107) mmol/L Carbon Dioxide (21-32) mmol/L Anion Gap (3-11) BUN (6-23) mg/dl Creatinine (0.6-1.2) mg/dl Est Cr Clr Drug Dosing ml/min Est GFR ( Amer) ml/min Est GFR (Non-Af Amer) ml/min BUN/Creatinine Ratio (10-20) Glucose (70-99(Fasting)) mg/dl Calcium (8.5-10.1) mg/dl Total Bilirubin (0.2-1.0) mg/dl AST (13-39) U/L ALT (7-52) U/L Alkaline Phosphatase (34-104) U/L Total Protein (6.0-8.3) gm/dl Albumin (3.4-5.0) gm/dl Globulin (2.5-4.0) gm/dl Albumin/Globulin Ratio (0.9-2) Urine Color Urine Appearance (Clear) Urine pH (4.5-7.5) Ur Specific [place] (1.000-1.030) Urine Protein (Negative) Urine Glucose (UA) (Negative) Urine Ketones (Negative) Urine Blood (Negative) Urine Nitrite (Negative) Urine Bilirubin (Negative) Urine Urobilinogen (Negative) Ur Leukocyte Esterase (Negative) Urine RBC (0-4) /hpf Urine WBC (0-5) /hpf Ur Epithelial Cells (0-5) /lpf Urine Bacteria (Negative) SARS-CoV-2, RNA, NAAT NEGATIVE (NEGATIVE) Blood Type B Negative Blood Type Recheck B Negative Antibody Screen NEGATIVE Crossmatch See Detail 12/08/21 12/08/21 12/08/21 Range/Units 14:51 14:41 14:41 WBC (4.8-10.8) K/ul RBC (3.93-5.22) M/uL Hgb (12.0-16.0) g/dl Hct (34.1-44.9) % MCV (80.0-100.0) fL MCH (25.0-34.0) pg MCHC (32.0-36.0) g/dL RDW Std Deviation (36.4-46.3) fL RDW Coeff of Eva (11.5-14.5) % Plt Count (130-400) K/uL MPV (9.4-12.3) fL Immature Gran % (Auto) % Neut % (Auto) % Lymph % (Auto) % [place] % (Auto) % Eos % (Auto) % Baso % (Auto) % Neut # (Auto) (1.4-6.5) K/uL Lymph # (Auto) (1.2-3.4) K/uL [place] # (Auto) (0.24-0.82) K/uL Eos # (Auto) (0-0.50) K/uL Baso # (Auto) (0-0.2) K/uL Immature Gran # (Auto) (0.00-0.02) K/uL PT 10.6 (9.0-12.0) Seconds INR 1.0 (0.9-1.1) APTT 21.7 (21.0-31.0) Seconds PTT Ratio 0.8 Sodium 135 L (136-145) mmol/L Potassium 3.4 L (3.5-5.1) mmol/L Chloride 103 (98-107) mmol/L Carbon Dioxide 25 (21-32) mmol/L Anion Gap 7 (3-11) BUN 14 (6-23) mg/dl Creatinine 0.84 (0.6-1.2) mg/dl Est Cr Clr Drug Dosing 53.3 ml/min Est GFR ( Amer) 76.1 ml/min Est GFR (Non-Af Amer) 65.6 ml/min BUN/Creatinine Ratio 16.7 (10-20) Glucose 124 H (70-99(Fasting)) mg/dl Calcium 8.3 L (8.5-10.1) mg/dl Total Bilirubin 0.2 (0.2-1.0) mg/dl AST 13 (13-39) U/L ALT 12 (7-52) U/L Alkaline Phosphatase 33 L (34-104) U/L Total Protein 5.3 L (6.0-8.3) gm/dl Albumin 3.7 (3.4-5.0) gm/dl Globulin 1.6 L (2.5-4.0) gm/dl Albumin/Globulin Ratio 2.3 H (0.9-2) Urine Color Red Urine Appearance Turbid A (Clear) Urine pH 7.5 (4.5-7.5) Ur Specific [place] 1.025 (1.000-1.030) Urine Protein 3+ H (Negative) Urine Glucose (UA) Negative (Negative) Urine Ketones Negative (Negative) Urine Blood 3+ H (Negative) Urine Nitrite Negative (Negative) Urine Bilirubin Negative (Negative) Urine Urobilinogen Negative (Negative) Ur Leukocyte Esterase Trace H (Negative) Urine RBC >30 H (0-4) /hpf Urine WBC 10-30 H (0-5) /hpf Ur Epithelial Cells 0-5 (0-5) /lpf Urine Bacteria Negative (Negative) SARS-CoV-2, RNA, NAAT (NEGATIVE) Blood Type Blood Type Recheck Antibody Screen Crossmatch 12/08/21 Range/Units 14:41 WBC 5.96 (4.8-10.8) K/ul RBC 1.72 L (3.93-5.22) M/uL Hgb 5.5 L* (12.0-16.0) g/dl Hct 16.2 L* (34.1-44.9) % MCV 94.2 (80.0-100.0) fL MCH 32.0 (25.0-34.0) pg MCHC 34.0 (32.0-36.0) g/dL RDW Std Deviation 46.4 H (36.4-46.3) fL RDW Coeff of Eva 13.6 (11.5-14.5) % Plt Count 254 (130-400) K/uL MPV 9.1 L (9.4-12.3) fL Immature Gran % (Auto) 0.5 % Neut % (Auto) 72.0 % Lymph % (Auto) 20.6 % [place] % (Auto) 6.2 % Eos % (Auto) 0.2 % Baso % (Auto) 0.5 % Neut # (Auto) 4.29 (1.4-6.5) K/uL Lymph # (Auto) 1.23 (1.2-3.4) K/uL [place] # (Auto) 0.37 (0.24-0.82) K/uL Eos # (Auto) 0.01 (0-0.50) K/uL Baso # (Auto) 0.03 (0-0.2) K/uL Immature Gran # (Auto) 0.03 H (0.00-0.02) K/uL PT (9.0-12.0) Seconds INR (0.9-1.1) APTT (21.0-31.0) Seconds PTT Ratio Sodium (136-145) mmol/L Potassium (3.5-5.1) mmol/L Chloride (98-107) mmol/L Carbon Dioxide (21-32) mmol/L Anion Gap (3-11) BUN (6-23) mg/dl Creatinine (0.6-1.2) mg/dl Est Cr Clr Drug Dosing ml/min Est GFR ( Amer) ml/min Est GFR (Non-Af Amer) ml/min BUN/Creatinine Ratio (10-20) Glucose (70-99(Fasting)) mg/dl Calcium (8.5-10.1) mg/dl Total Bilirubin (0.2-1.0) mg/dl AST (13-39) U/L ALT (7-52) U/L Alkaline Phosphatase (34-104) U/L Total Protein (6.0-8.3) gm/dl Albumin (3.4-5.0) gm/dl Globulin (2.5-4.0) gm/dl Albumin/Globulin Ratio (0.9-2) Urine Color Urine Appearance (Clear) Urine pH (4.5-7.5) Ur Specific [place] (1.000-1.030) Urine Protein (Negative) Urine Glucose (UA) (Negative) Urine Ketones (Negative) Urine Blood (Negative) Urine Nitrite (Negative) Urine Bilirubin (Negative) Urine Urobilinogen (Negative) Ur Leukocyte Esterase (Negative) Urine RBC (0-4) /hpf Urine WBC (0-5) /hpf Ur Epithelial Cells (0-5) /lpf Urine Bacteria (Negative) SARS-CoV-2, RNA, NAAT (NEGATIVE) Blood Type Blood Type Recheck Antibody Screen Crossmatch Diagnostic Findings Abdomen/Pelvis CTA 12/08/21 16:32 CT ANGIOGRAPHY OF THE ABDOMEN AND PELVIS CLINICAL HISTORY: Hematuria. COMPARISON STUDY: PET/CT January 16, 2017. CT of the abdomen and pelvis December 02, 2021. TECHNIQUE: Helical axial images of the abdomen and pelvis were obtained during arterial phase following intravenous injection of 107 cc of Optiray 300 IV. Sagittal and coronal reconstructions were viewed as well as maximal intensity projections on an independent 3-D workstation. Automated exposure control was utilized for the study. A dose lowering technique was utilized adhering to the principles of ALARA. FINDINGS: Left breast implant is incidentally noted. No pneumatosis, free air or portal venous gas is present. Multiple hepatic lesions are unchanged from earlier exams. These measure up to 2 cm and are likely benign. There are no new hepatic lesions. Arterial phase images of the spleen, adrenal glands and pancreas are unremarkable. There is no biliary or pancreatic ductal dilatation. There is no evidence for a bowel obstruction. Prominence of the endometrium is better depicted on CT of November 24, 2021. There is a 2.3 cm calcified fibroid. There is no fluid collection to suggest an abscess. Endometrial prominence is better depicted on CT of December 02, 2021. Note is again made of dilatation of the right upper pole calyces and the right renal pelvis. There is a suspected underlying mass within the right upper quadrant consistent which may extend into the parenchyma. There is mild associated atrophy. No additional urothelial lesions are identified on this arterial phase exam. The caliber of the abdominal aorta is normal. There is no dissection or aneurysm within the abdomen or pelvis. There is mild stenosis at the origin the celiac axis. The remainder of the vessels are patent. There is mild atherosclerotic plaque. IMPRESSION: 1. Normal caliber abdominal aorta with mild atherosclerotic plaque. No aneurysm within the abdomen or pelvis. No dissection. Mild narrowing at the origin of the celiac axis. 2. Intraluminal mass-like abnormality within the right upper collecting system which may extend into the renal parenchyma, as shown on CT of December 02, 2021. 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 Nonemergent Urology consultation is recommended. ACT 112: Positive. There are findings on this exam that require communication between the performing entity and the patient following Patient Test Result Information Act ([place] Act 112) guidelines. Electronically signed by: Dave Schofield M.D. 12/08/2021 5:22 PM Code Status & VTE Plan Code Status Full Code Supervising Physician Co-Signing Physician Notes Patient seen and examined, chart reviewed, case discussed with Dr. Kiser and I agree with the assessment and plan as above. In brief, patient is an 81yo female presenting with gross hematuria, symptomatic anemia with Hgb of 5.5. She reports VERDE, no CP/syncope. HD stable Ongoing hematuria for the last week. On exam she is afebrile, HD stable, NAD Skin - +pallor HEENT - NC/AT, PERRL, MMM Heart - +S1/S2, regular Lungs - CTA Abd - soft, NT/ND Ext - no edema Labs and images reviewed. Normochromic/normocytic anemia with Hgb=5.5, Hct=16.2. Prior values of 11.4 and 33.2, respectively, on 11/27/21. Normal platelets and coagulation profile CT Abdomen/Pelvis with Intraluminal mass-like abnormality within the right upper collecting system which may extend into the renal parenchyma, as shown on CT of December 02, 2021. This is highly suspicious for transitional cell carcinoma. Nonemergent Urology consultation is recommended. Assessment/Plan - symptomatic anemia, hematuria, concerning finding on CT abdomen suggestive of mass in upper collecting system highly suspicious for transitional cell carcinoma -Transfusion with PRBCs x 2 units -CBC in AM -Urology consultation appreciated -Keep patient NPO for possible diagnostics in AM -Remainder of plan as above Resident Activity Tracking Resident Involvement: Resident Care Provided Care Provided: Adult Hospital Medicine (1) Hematuria Hematuria type: unspecified type Qualified Code(s): R31.9 - Hematuria, unspecified (2) Anemia Anemia type: unspecified type Qualified Code(s): D64.9 - Anemia, unspecified
[2021-12-08 19:12] LABS: Partial Thromboplastin Ratio 0.8; Partial Thromboplastin Time 21.7 Seconds (21.0-31.0); Prothrombin Time 10.6 Seconds (9.0-12.0)
--- NOTE | 2021-12-08 20:12 | Urology Consultation ---
Date of Consultation December 08, 2021 Assessment & Plan (1) Hematuria: Patient is being admitted on the hospitalist service. We recommend proceeding as follows: The patient is noted to have a significant anemia. I suspect that this has been ongoing for some time as the patient is normotensive without tachycardia and she is asymptomatic in this regard. Agree with transfusing packed red blood cells as ordered by the hospitalist service Follow serial labs with further transfusions to follow if clinically indicated Would be preferable to optimize the patient's hemoglobin and hematocrit prior to any procedural intervention The patient will be reevaluated tomorrow morning by urology attending and further discussion will be had with the patient on the neck step in evaluating her hematuria which may include diagnostic procedures including but not limited to cystoscopy or additional imaging of her abdomen/pelvis History of Present Illness Reason for Consultation: Hematuria History of Present Illness This is an 81-year-old female who presented to the [facility] emergency department secondary to hematuria. The patient notes that she has had hematuria for approximately 2 weeks. She says that this hematuria is painless. She denies any dysuria or urinary frequency. She does note that she is passing some small blood clots. She denies taking any blood thinners. She does note that her appetite is normal. She reports that she has had a colonoscopy in the past without any significant pathology. She does reports she is lost approximately 10 pounds in the past year but feels that this is related to stressors at home as her was recently diagnosed with dementia. The patient denies any back, flank, or abdominal pain. She denies any nausea or vomiting. She denies any lightheadedness or dizziness. No fevers, shakes, or chills are reported. She denies any occupational exposures to any chemicals or pesticides. She notes that her father suffered from prostate cancer and her mother also had breast cancer. Since arrival to the hospital the patient has had labs and imaging which I independent reviewed. Patient did have a CT scan of the abdomen and pelvis. This showed the patient had a normal caliber abdominal aorta with no evidence of aneurysm. There is no evidence of dissection. The patient was found to have an intraluminal mass in the right upper renal collecting system extending into the renal parenchyma. This was concerning for transitional cell carcinoma. The interpreting radiologist has noted that there is no clear evidence of contrast extravasation. Labs include a CBC her white blood cell count was elevated at 5.9. Hemoglobin and hematocrit were 5.5 and 16.2. Platelet count was noted to be normal. Coagulation studies were noted to be normal. Chemistry profile showed sodium and potassium are 135 and 3.4. BUN and creatinine were both within the normal range. A urinalysis was performed that showed turbid urine with 3+ blood. This was negative for nitrites and only showed trace leukocyte esterase. There were 10-30 white blood cells per high-power field. The specimen was negative for bacteria. A COVID test was negative. Since arrival to the hospital the patient has been ordered 2 units of packed red blood cells to be transfused. Currently her first unit is being administered. At the time of my interview the patient was resting comfortably in bed. She was in no distress.. Allergies Allergy/AdvReac Type Severity Reaction Status Date / Time terbinafine Allergy Intermediate rash Verified 12/08/21 18:28 lisinopril AdvReac Mild cough Verified 12/08/21 18:28 Home Medications Medication Instructions Recorded Confirmed Type cholecalciferol (vitamin D3) 50 50 mcg PO QPM 08/13/19 12/08/21 History mcg (2,000 unit) tablet (Vitamin D3) calcium carbonate-vitamin D3 1 tab PO QPM 08/17/19 12/08/21 History [Oyster Shell Calcium-Vit D3] tamoxifen 10 mg tablet 10 mg PO QPM 12/27/19 12/08/21 History bisoprolol 10 1 tab PO BID #180 tabs 07/10/21 12/08/21 Rx mg-hydrochlorothiazide 6.25 mg tablet hydralazine 50 mg tablet 50 mg PO BID #180 tabs 08/17/21 12/08/21 Rx potassium chloride 20 mEq 20 meq PO QAM #90 tabs 08/17/21 12/08/21 Rx tablet,extended release atorvastatin 40 mg tablet 40 mg PO QPM 12/08/21 12/08/21 History triamcinolone acetonide 0.1 % 1 appln topical BID PRN Skin 12/08/21 12/08/21 History topical cream Irritation Patient History Medical History Age related osteoporosis osteopenia Atypical ductal hyperplasia, breast Breast cancer, left Complaint of wax in ear Encounter for pre-operative examination History of chemotherapy with right breast Hyperlipidemia Hypertension Osteopenia Tachycardia episode when forgot to take her medications that day. Surgical History H/O lumpectomy right -- chemo and radiation and then found cancer on the left History of cataract surgery RT History of mastectomy (04/06/17) Left Mastectomy with sentinel lymph node biopsy Hx of tonsillectomy Ovarian cystadenoma age 20 and removed ovary and appendix Family History Mother Heart disease Breast cancer Aunt Breast cancer Father Prostate cancer Denies family history of Colon cancer Ovarian cancer Myocardial infarction Social History Smoking Status: Never smoker Second Hand Exposure: No; Hx Alcohol Use: Yes Alcohol type: wine Hx Substance Use: No Preferred Language: [place]ian Communication Ability: Effective Visual Impairment: No Limitations Hearing Ability: Normal Personal Lines Insurance Agent Required: No Beliefs That Will Affect Care: None marital status: Current Living Situation: Spouse current occupational status: retired Feels Safe at Home: Yes Dental Care, Regularly: Yes Physical Activity Frequency: 3-4 Times per Week Seatbelt Use: always Sunscreen Use: Yes (OCCASIONALLY ) Assistive Devices: Glasses Review of Systems Constitutional: no fever, no chills and no weakness Eyes: no eye pain Ear, Nose, Mouth, Throat: no ear pain Respiratory: no cough and no dyspnea Cardiovascular: no chest pain Gastrointestinal: no abdominal pain, no early satiety, no nausea and no vomiting Genitourinary: as per Subjective / HPI and + hematuria Musculoskeletal: no back pain Integumentary: no rash Neurologic: no localized weakness Physical Exam Constitutional: WD/WN, vitals as above Eyes: + anicteric sclerae; no conjunctival abnormality ENMT: Ears: no hearing impairment and no external ear abnormality Mouth: no oropharynx abnormality Neck: trachea midline Respiratory: normal respiratory effort, lungs clear to auscultation Cardiovascular: Rate/Rhythm: regular rate and regular rhythm Vessels: dorsalis pedis pulses present Gastrointestinal (Abdomen): Abdomen is soft, nonrigid, nondistended, nontender to palpation. Musculoskeletal: No calf tenderness Skin: no rashes Neurologic: moves all extremities Psychiatric: A+Ox3, euthymic affect Genitourinary: no CVA tenderness Results & Data ([facility]) Vital Signs (Past 12 Hours) Vital Signs Temp Pulse Pulse Resp BP BP Pulse Ox 12/08/21 19:40 37.1 C 69 18 117/78 100 12/08/21 19:30 83 18 136/101 H 100 12/08/21 18:40 37.3 C 86 18 129/74 98 12/08/21 18:10 37.1 C 82 18 118/65 100 12/08/21 17:55 37.1 C 67 18 122/67 100 12/08/21 17:39 36.6 C 65 18 95/69 L 98 12/08/21 16:16 68 18 119/67 99 12/08/21 14:12 37 C 86 20 128/65 100 O2 Del Method O2 Flow Rate 12/08/21 19:40 12/08/21 19:30 Room Air 12/08/21 18:40 0 12/08/21 18:10 0 12/08/21 17:55 0 12/08/21 17:39 0 12/08/21 16:16 Room Air 12/08/21 14:12 Room Air PG Care Time/CCT Total # of Minutes Spent Total Time Spent with Patient: Total time spent is greater than 50% in coordination of care (as documented) at patient's floor/unit and/or counseling patient: Coding Level of Care Code 64202 Inpt Consult Level 5 Diagnoses Hematuria R31.9 Hematuria type: unspecified type (1) Hematuria Hematuria type: unspecified type Qualified Code(s): R31.9 - Hematuria, unspecified
--- NOTE | 2021-12-09 02:15 | Billing Data ---
Date of Service December 08, 2021 Coding Level of Care Code 95431 Initial Inpt Care Lvl 2
[2021-12-09] MEDS: ACETAMINOPHEN 325 MG TAB PO PRN (03:08)
[2021-12-09] MEDS ORDERED: oxyCODONE/ACETAMINOPHEN 5mg/325mg TAB PO STA (05:05)
[2021-12-09 05:56] LABS: Basophils # (auto) 0.03 K/uL (0-0.2); Basophils % (auto) 0.3 %; Eosinophils # (auto) 0.03 K/uL (0-0.50); Eosinophils % (auto) 0.3 %; Hematocrit (blood only) 23.5 % (34.1-44.9); Immature Granulocytes # (auto) 0.03 K/uL (0.00-0.02); Immature Granulocytes % (auto) 0.3 %; Lymphocytes # (auto) 1.15 K/uL (1.2-3.4); Lymphocytes % (auto) 13.1 %; Mean Corpuscular Hemoglobin 31.1 pg (25.0-34.0); Mean Corpuscular Volume 91.4 fL (80.0-100.0); Mean Platelet Volume 8.9 fL (9.4-12.3); Monocytes # (auto) 0.56 K/uL (0.24-0.82); Monocytes % (auto) 6.4 %; Neutrophils # (auto) 6.96 K/uL (1.4-6.5); Neutrophils % (auto) 79.6 %; Nucleated RBC # (auto) 0.02 K/uL (0-0); Nucleated RBC % (auto) 0.2 %; Platelet Count 241 K/uL (130-400); RDW Coefficient of Variation 14.2 % (11.5-14.5); RDW Standard Deviation 46.6 fL (36.4-46.3); Red Blood Count 2.57 M/uL (3.93-5.22); White Blood Count 8.76 K/ul (4.8-10.8)
[2021-12-09 06:22] LABS: Troponin I High Sensitivity 8.7 pg/ml (0-14)
[2021-12-09 06:24] LABS: Albumin Globulin Ratio 2.2 (0.9-2); Albumin Level 3.7 gm/dl (3.4-5.0); BUN Creatinine Ratio 13.3 (10-20); Bilirubin,Total 0.5 mg/dl (0.2-1.0); Calcium 8.2 mg/dl (8.5-10.1); Creatinine Clr Calc Pharmacy 45.8 ml/min; Est GFR (African American) 63.1 ml/min; Est GFR (Non-African American) 54.5 ml/min; Globulin 1.7 gm/dl (2.5-4.0); Potassium 3.3 mmol/L (3.5-5.1); Total Protein 5.4 gm/dl (6.0-8.3)
[2021-12-09] MEDS: BISOPROLOL FUMARATE 5 MG TAB PO SCH ×2 (07:58→20:31)
[2021-12-09] MEDS: hydrALAZINE TAB 50 MG TAB PO SCH ×2 (07:58→20:31)
[2021-12-09] MEDS: hydroCHLOROthiazide 25 MG TAB PO SCH ×2 (07:58→20:32)
--- NOTE | 2021-12-09 08:19 | Hospitalist Progress Note ---
Date of Service December 09, 2021 Assessment & Plan (1) Anemia: Plan: Janice is a 81 y/o female who presented to the ED with painless hematuria over 2+ weeks in addition to shortness of breath/weakness. Her PMH includes HTN, HLD, hx of r. breast cancer (lumpectomy and left mastectomy-2018), and osteopenia. Hematuria/Concern for Transitional Cell Carcinoma -Suspect non-glomerular hematuria -UA: turbid, 3+ urine blood, 3+ urine protein -Urology consulted, appreciate recommendations -CTA (12/08): "intraluminal mass-like abnormality within right upper collecting system which may extend into renal parenchyma." -Concern for transitional cell carcinoma -CT (11/27): "slightly hyperdense filling defect in the right upper pole collecting system extending into right renal pelvis." -Patient was seen by urology PA, who declined uroscopy at this time. She is to be reevaluated tomorrow. Appreciate recs. * Urine culture collected * Bladder scan as needed Abdominal pain -Now status post Percocet tablet x1 in ER, IV morphine 1 mg this morning. -Nonspecific. Unclear etiology. Reported pain wildly out of proportion to physical exam. * Percocet every 4 hours as needed Anemia -Normocytic anemia, likely from hematuria -Hemoglobin: 5.5 (down from 11.4 two weeks ago). Now status post pRBC x2. -CTA showed no active extravasation -Vitals stable, will continue to monitor. -APTT, INR within normal limits. * Repeat hemoglobin of 8.0. Will trend. Dyspnea on Exertion -O2 sat 100% on room air. Asymptomatic. -Lungs CTAB, no LE edema -Likely 2/2 to drop in hemoglobin Hypokalemia: Repleted with 20 mEq IV potassium chloride Hypertension: Continue home regimen of Hydralazine, Bisoprolol-hy drochlorothiazide Hyperlipidemia: Continue atorvastatin Hx of Breast Cancer: Continue tamoxifen Diet: Regular diet DVT PPx: SCDs Code Status: Full Code Dispo: Telemetry (2) Transitional cell carcinoma: (3) Hematuria: (4) Hypertension: (5) Hyperlipidemia: (6) History of mastectomy: (7) Dyspnea on exertion: Admission and Anticipated Discharge Date Admission Date: December 08, 2021 Supervising Physician Co-Signing Physician Notes I saw and reviewed patient with Dr. Brooks. At this time we are awaiting neurology recommendations of care. It looks as if patient will be going to the OR tomorrow for biopsy. We will make her n.p.o. at midnight and for now treat with repeat transfusions for hemoglobin under 7. Subjective Patient had episode of "severe" abdominal pain x1 overnight. This morning, patient is awake in bed upon arrival. She again reports severe abdominal pain, the worst she has ever experienced. She is unable to localize the pain, and only states that it is "in her kidneys." Review of Systems Review of Systems: All systems reviewed & are unremarkable except as noted in HPI & below Physical Exam 2 Physical Exam: General: Well-appearing, alert, interactive, and in no acute distress. HEENT: Normocephalic, atraumatic. EOM intact. Good conjugate gaze. Nares patent. Moist mucosal membranes. Neck: Supple. No lymphadenopathy. Normal ROM. CV: Regular rate and rhythm. Normal S1 and S2. No murmurs gallops or rubs. Respiratory: Normal respiratory effort. Lungs clear to auscultation bilaterally. No crackles, rhonchi, or wheezes. Abdomen: Soft, nondistended abdomen. No bruits heard on auscultation. No tenderness to deep palpation. No guarding or rebound. Extremities: Capillary refill <2 sec. 2+ dp equal bilaterally. No pedal edema. Neuro: Alert and oriented x3. Skin: Clean, dry, and intact. No rashes, bruises, or erythema. Results & Data Results & Data ([facility]) Vital Signs (Past 12 Hours) Vital Signs Temp Pulse Pulse Resp BP BP Pulse Ox 12/09/21 07:32 36.8 C 61 19 120/67 96 12/09/21 05:15 84 20 147/74 H 97 12/09/21 03:00 37.2 C 61 18 125/76 96 12/09/21 00:10 75 12/08/21 22:45 12/08/21 22:45 37.5 C 76 18 130/60 99 12/08/21 23:36 37.1 C 68 18 109/68 98 12/08/21 22:53 37.0 C 75 18 110/64 99 12/08/21 21:53 37.0 C 77 18 128/67 99 12/08/21 21:23 37.1 C 69 16 115/60 99 12/08/21 21:08 36.9 C 69 18 110/69 99 12/08/21 20:52 37.1 C 67 18 127/69 99 12/08/21 20:30 37.1 C 70 18 127/69 99 12/08/21 20:30 37.1 C 70 18 127/69 99 O2 Del Method 12/09/21 07:32 Room Air 12/09/21 05:15 Room Air 12/09/21 03:00 Room Air 12/09/21 00:10 12/08/21 22:45 Room Air 12/08/21 22:45 Room Air 12/08/21 23:36 12/08/21 22:53 12/08/21 21:53 12/08/21 21:23 12/08/21 21:08 12/08/21 20:52 12/08/21 20:30 12/08/21 20:30 Resident Activity Tracking Resident Involvement: Resident Care Provided Care Provided: Adult Hospital Medicine (1) Hematuria Hematuria type: unspecified type Qualified Code(s): R31.9 - Hematuria, unspecified (2) Anemia Anemia type: unspecified type Qualified Code(s): D64.9 - Anemia, unspecified
--- NOTE | 2021-12-09 08:45 | Electrocardiogram Report ---
Test Reason : Blood Pressure : / mmHG Vent. Rate : 062 BPM Atrial Rate : 062 BPM P-R Int : 136 ms QRS Dur : 088 ms QT Int : 458 ms P-R-T Axes : 044 000 -05 degrees QTc Int : 464 ms Normal sinus rhythm Nonspecific ST abnormality Abnormal ECG When compared with ECG of 08-DEC-2021 14:32, Nonspecific T wave abnormality no longer evident in Anterior leads Confirmed by Joe Chang ([id number]) on 12/09/2021 8:45:21 AM Referred By: REFERRED SELF Confirmed By:Cj Chang
[2021-12-09] MEDS ORDERED: MoRPHine SULFATE 2 MG/ML CARP IV STA (08:59)
[2021-12-09] MEDS: POTASSIUM CHLORIDE CRTAB 20 MEQ TABCR PO SCH (09:09)
[2021-12-09] MEDS ORDERED: oxyCODONE/ACETAMINOPHEN 5mg/325mg TAB PO PRN (12:11)
[2021-12-09] MEDS: oxyCODONE/ACETAMINOPHEN 5mg/325mg TAB PO PRN ×2 (12:40→22:41)
[2021-12-09] MEDS: LACTATED RINGER'S 1,000 ML IV SCH ×2 (12:41→21:03)
[2021-12-09] MEDS: POTASSIUM CHLORIDE / WTR 10 MEQ/100 ML PLCT IV SCH ×2 (12:41→14:58)
--- NOTE | 2021-12-09 14:19 | Urology Progress Note ---
Date of Service December 09, 2021 Assessment & Plan (1) Hematuria: Plan 81yo F who presented to the ED with painless hematuria over 2+ weeks in addition to shortness of breath/weakness and anemia. CT imaging was notable for intraluminal mass-like abnormality within the right upper collecting system which may extend into the renal parenchyma, and highly suspicious for transitional cell carcinoma. - Plan of care reviewed with Dr. Martin, on-call urologist. - Afebrile and hemodynamically stable. - Labs reviewed - Wbc 8.76, Creatinine 0.98, Hemoglobin 8.0 (received 2units PRBC yesterday). Continue to trend. - Urine culture 12/08 negative. - Voiding spontaneously, continue to monitor. Bladder scan prn. - No plan for urological intervention at this time. - Continue supportive care and close monitoring. - See attending note for further details. Admission and Anticipated Discharge Date Admission Date: December 08, 2021 Supervising Physician Co-Signing Physician Notes 81-year-old female with hematuria and concerns on CT scan for right upper tract urothelial cancer. I had a very long conversation with her at the bedside this afternoon. Fortunately, her pain is improved and her hematuria is cleared. I explained that I am concerned that she has upper tract urothelial cancer and we ultimately need to perform ureteroscopy with biopsy. I explained that I would prefer to do this in the outpatient setting once the hematuria has cleared as it gives better visualization a better chance for getting a good tissue biopsy. We also went over that she may require a stent placement prior to any biopsy if I cannot reach the tumor. We also discussed that hematuria like this can dislodge stents. We also discussed that the ultimate treatment for this will likely either be a nephrectomy or nephroureterectomy based on pathology. We will reevaluate tomorrow. If not getting better I may add her on for ureteroscopic procedure. If she is stable, we will likely add her on next week. Please make n.p.o. at midnight. Patient can have regular diet now. Subjective Patient examined at bedside this AM. Awake, resting in bed on arrival. No acute distress. Reports right flank pain, managing with PO/IV pain medication. Reports the pain started last night. Voiding spontaneously, still with some hematuria. No fevers. Has been NPO. Review of Systems Constitutional: as per Subjective / HPI Genitourinary: as per Subjective / HPI Physical Exam Constitutional: no acute distress Respiratory: no respiratory distress and no labored breathing Musculoskeletal: Head/Neck/Chest: normocephalic Neurologic: awake Psychiatric: Orientation: alert and oriented x 3 Results & Data ([facility]) Vital Signs (Past 12 Hours) Vital Signs Temp Pulse Resp BP Pulse Ox O2 Del Method 12/09/21 10:54 36.9 C 77 19 138/71 96 Room Air 12/09/21 07:32 36.8 C 61 19 120/67 96 Room Air 12/09/21 05:15 84 20 147/74 H 97 Room Air 12/09/21 03:00 37.2 C 61 18 125/76 96 Room Air PG Care Time/CCT Total # of Minutes Spent Total Time Spent with Patient: Total time spent is greater than 50% in coordination of care (as documented) at patient's floor/unit and/or counseling patient: Coding Level of Care Code 99445 Subseq Hosp Care Lvl 2 Diagnoses Hematuria R31.9 Hematuria type: unspecified type (1) Hematuria Hematuria type: unspecified type Qualified Code(s): R31.9 - Hematuria, unspecified
[2021-12-09] MEDS: ATORVASTATIN 40 MG TAB PO SCH (20:31)
[2021-12-09] MEDS: TAMOXIFEN CITRATE 10 MG TABLET PO SCH (20:31)
[2021-12-09] MEDS: ONDANSETRON INJ 2 MG/ML 2 ML VIAL IV PRN (20:45)
[2021-12-10] MEDS: ACETAMINOPHEN 325 MG TAB PO PRN ×2 (02:58→11:40)
[2021-12-10] MEDS: POTASSIUM CHLORIDE CRTAB 20 MEQ TABCR PO SCH (08:01)
--- NOTE | 2021-12-10 08:10 | Hospitalist Progress Note ---
Date of Service December 10, 2021 Assessment & Plan (1) Anemia: Plan: Janice is a 81 y/o female who presented to the ED with painless hematuria over 2+ weeks in addition to shortness of breath/weakness. Her PMH includes HTN, HLD, hx of r. breast cancer (lumpectomy and left mastectomy-2018), and osteopenia. Hematuria/Concern for Transitional Cell Carcinoma -Suspect non-glomerular hematuria -UA: turbid, 3+ urine blood, 3+ urine protein -Urology consulted, appreciate recommendations -CTA (12/08): "intraluminal mass-like abnormality within right upper collecting system which may extend into renal parenchyma." Concern for transitional cell carcinoma. -CT (11/27): "slightly hyperdense filling defect in the right upper pole collecting system extending into right renal pelvis." -Patient was seen by urology PA, who declined uroscopy. Decision was made to take patient for uteroscopy the following day after hematuria returned. -Per operative report: Right upper pole of right kidney contained papillary growths concerning for cancer which were biopsied. Lots of clotting observed, which were unable to be removed during the procedure. Unable to place stents due to * Follow renal pathology from cystoscopy * Appreciate urology recs * Trend CBC. Bladder scan as needed Abdominal pain -Now status post Percocet tablet x1 in ER, IV morphine 1 mg this morning. -Nonspecific. Unclear etiology. Reported pain wildly out of proportion to physical exam. -Currently being well managed on Percocet every 4 hours as needed. * Percocet every 4 hours as needed Anemia -Normocytic anemia, likely from hematuria -Hemoglobin: 5.5 (down from 11.4 two weeks ago). Now status post pRBC x2. pRBC x2 on 12/10 -CTA: No active extravasation -Vitals stable. -APTT, INR within normal limits. * Trend CBC. Transfuse if hemoglobin <7. Dyspnea on Exertion -O2 sat 100% on room air. Asymptomatic. -Lungs CTAB, no LE edema -Likely 2/2 to drop in hemoglobin Hypokalemia: Repleted with IV potassium. Trend BMP. Hypertension: Continue home regimen of Hydralazine, Bisoprolol- hydrochlorothiazide Hyperlipidemia: Continue atorvastatin Hx of Breast Cancer: Continue tamoxifen Diet: Regular diet DVT PPx: SCDs Code Status: Full Code Dispo: Telemetry (2) Transitional cell carcinoma: (3) Hematuria: (4) Hypertension: (5) Hyperlipidemia: (6) History of mastectomy: (7) Dyspnea on exertion: Admission and Anticipated Discharge Date Admission Date: December 08, 2021 Supervising Physician Co-Signing Physician Notes I saw the patient and confirmed menjivar portions of the history and physical exam and agree with the resident/fellow impression and plan as above. Dr. Ganga Jeffers, DO Subjective No acute events overnight. Per nursing, patient hematuria returned in the morning ("wang red urine"). In the room, patient is awake alert. She reports resolution of her abdominal pain. Review of Systems Review of Systems: All systems reviewed & are unremarkable except as noted in HPI & below Physical Exam Physical Exam: General: Well-appearing, alert, interactive, and in no acute distress. HEENT: Normocephalic, atraumatic. EOM intact. Good conjugate gaze. Nares patent. Moist mucosal membranes. Neck: Supple. No lymphadenopathy. Normal ROM. CV: Regular rate and rhythm. Normal S1 and S2. No murmurs gallops or rubs. Respiratory: Normal respiratory effort. Lungs clear to auscultation bilaterally. No crackles, rhonchi, or wheezes. Abdomen: Soft, nondistended abdomen. No bruits heard on auscultation. No tenderness to deep palpation. No guarding or rebound. Extremities: Capillary refill <2 sec. 2+ dp equal bilaterally. No pedal edema. Neuro: Alert and oriented x3. Skin: Clean, dry, and intact. No rashes, bruises, or erythema. Results & Data Results & Data ([facility]) Vital Signs (Past 12 Hours) Vital Signs Temp Pulse Pulse Resp BP Pulse Ox O2 Del Method 12/10/21 07:59 91/48 L 12/10/21 07:43 57 L 12/10/21 07:26 37.3 C 62 16 93/55 L 95 Room Air 12/10/21 03:20 38.2 C H 62 18 104/58 L 95 Room Air 12/10/21 00:45 65 12/09/21 22:38 37.7 C H 70 19 104/60 91 Room Air 12/09/21 20:27 36.9 C Resident Activity Tracking Resident Involvement: Resident Care Provided Care Provided: Adult Hospital Medicine (1) Hematuria Hematuria type: unspecified type Qualified Code(s): R31.9 - Hematuria, unspecified (2) Anemia Anemia type: unspecified type Qualified Code(s): D64.9 - Anemia, unspecified
[2021-12-10] MEDS: BISOPROLOL FUMARATE 5 MG TAB PO SCH ×2 (08:50→20:21)
[2021-12-10] MEDS: hydroCHLOROthiazide 25 MG TAB PO SCH ×2 (08:50→20:22)
[2021-12-10] MEDS: hydrALAZINE TAB 50 MG TAB PO SCH ×2 (08:50→20:21)
[2021-12-10 09:54] LABS: BUN Creatinine Ratio 10.3 (10-20); Calcium 7.8 mg/dl (8.5-10.1); Creatinine Clr Calc Pharmacy 41.9 ml/min; Est GFR (African American) 56.8 ml/min; Potassium 3.4 mmol/L (3.5-5.1)
[2021-12-10 10:00] LABS: Hematocrit (blood only) 20.3 % (34.1-44.9); Hemoglobin 6.9 g/dl (12.0-16.0); Mean Corpuscular Hemoglobin 31.8 pg (25.0-34.0); Mean Corpuscular Volume 93.5 fL (80.0-100.0); Mean Platelet Volume 9.1 fL (9.4-12.3); Platelet Count 211 K/uL (130-400); RDW Coefficient of Variation 14.2 % (11.5-14.5); RDW Standard Deviation 47.7 fL (36.4-46.3); Red Blood Count 2.17 M/uL (3.93-5.22)
[2021-12-10] MEDS: POTASSIUM CHLORIDE / WTR 10 MEQ/100 ML PLCT IV SCH ×4 (10:12→13:37)
[2021-12-10] MEDS: LACTATED RINGER'S 1,000 ML IV SCH ×2 (10:12→16:16)
[2021-12-10] MEDS ORDERED: SODIUM CHLORIDE 0.9% 250 ML IV PRN (10:33)
--- NOTE | 2021-12-10 13:11 | Anesthesiology Consultation ---
Date of Service December 10, 2021 Assessment & Plan (1) Encounter for pre-operative examination: Chart Review Chart Review: key entry operator initiated History Surgery Operation Date: 12/10/21 10:40 Proposed Procedures p Cystoscopy, Right Retrograde Pyelogram, Right Ureteroscopy, Possible Biopsy, Right Stent Insertion - Vadim Martin MD Height/Weight Height: 5 ft 4 in Weight: 76 kg Allergies Allergy/AdvReac Type Severity Reaction Status Date / Time terbinafine Allergy Intermediate rash Verified 12/08/21 18:28 lisinopril AdvReac Mild cough Verified 12/08/21 18:28 Medications Home Medications Medication Instructions Recorded Confirmed Last Taken cholecalciferol (vitamin D3) 50 50 mcg PO QPM 08/13/19 12/08/21 12/07/21 mcg (2,000 unit) tablet (Vitamin D3) calcium carbonate-vitamin D3 1 tab PO QPM 08/17/19 12/08/21 12/07/21 [Oyster Shell Calcium-Vit D3] tamoxifen 10 mg tablet 10 mg PO QPM 12/27/19 12/08/21 12/07/21 bisoprolol 10 1 tab PO BID #180 tabs 07/10/21 12/08/21 12/08/21 07:00 mg-hydrochlorothiazide 6.25 mg tablet hydralazine 50 mg tablet 50 mg PO BID #180 tabs 08/17/21 12/08/21 12/08/21 07:00 potassium chloride 20 mEq 20 meq PO QAM #90 tabs 08/17/21 12/08/21 12/08/21 tablet,extended release atorvastatin 40 mg tablet 40 mg PO QPM 12/08/21 12/08/21 12/07/21 triamcinolone acetonide 0.1 % 1 appln topical BID PRN Skin 12/08/21 12/08/21 Unknown topical cream Irritation Active Medications Generic Name Dose Route Start Last Admin Trade Name Freq PRN Reason Stop Dose Admin Acetaminophen 650 mg 12/08/21 22:48 12/10/21 11:40 Acetaminophen 325 Mg Tab PO 01/07/22 22:47 650 mg Q4H PRN Administration Mild pain or fever Atorvastatin Calcium 40 mg 12/09/21 21:00 12/09/21 20:31 Atorvastatin 40 Mg Tab PO 01/08/22 20:59 40 mg QPM PARISA Administration Bisoprolol Fumarate 10 mg 10/05/22 09:00 12/10/21 08:50 Bisoprolol Fumarate 5 Mg Tab PO 01/08/22 08:59 Not Given BID PARISA Hydralazine HCl 50 mg 12/09/21 09:00 12/10/21 08:50 Hydralazine Tab 50 Mg Tab PO 01/08/22 08:59 Not Given BID PARISA Hydrochlorothiazide 6.25 mg 12/09/21 09:00 12/10/21 08:50 Hydrochlorothiazide 25 Mg Tab PO 01/08/22 08:59 Not Given BID PARISA Lactated Ringer's 1,000 mls @ 125 mls/hr 12/10/21 09:00 12/10/21 10:12 Lr IV 01/09/22 08:59 125 mls/hr .Q8H PARISA Administration Ondansetron HCl 4 mg 12/09/21 12:22 12/09/21 20:45 Ondansetron Inj 2 Mg/Ml 2 Ml Vial IV 01/08/22 12:21 4 mg Q6H PRN Administration Nausea And Vomiting Oxycodone/Acetaminophen 1 tab 12/09/21 12:21 12/09/21 22:41 Oxycodone/Acetaminophen 5mg/325mg Tab PO 12/23/21 12:10 1 tab Q4H PRN Administration Moderate Pain Potassium Chloride 20 meq 12/09/21 09:00 12/10/21 08:01 Potassium Chloride Crtab 20 Meq Tabcr PO 01/08/22 08:59 20 meq QAM PARISA Administration Tamoxifen Citrate 10 mg 12/09/21 21:00 12/09/21 20:31 Tamoxifen Citrate 10 Mg Tablet PO 01/08/22 20:59 10 mg QPM PARISA Administration NPO Date Last Intake of Fluids: 12/09/21 Time Last Intake of Fluids: 18:00 Last Intake of Fluids Comment: clear liquid diet yesterday Date Last Intake of Solids: 12/15/21 Time Last Intake of Solids: 17:00 Past Medical History Medical History Age related osteoporosis osteopenia Atypical ductal hyperplasia, breast Breast cancer, left Complaint of wax in ear Encounter for pre-operative examination History of chemotherapy with right breast Hyperlipidemia Hypertension Osteopenia Tachycardia episode when forgot to take her medications that day. Past Family History Family History Mother Heart disease Breast cancer Aunt Breast cancer Father Prostate cancer Denies family history of Colon cancer Ovarian cancer Myocardial infarction Past Surgical History Surgical History H/O lumpectomy right -- chemo and radiation and then found cancer on the left History of cataract surgery RT History of mastectomy (04/06/17) Left Mastectomy with sentinel lymph node biopsy Hx of tonsillectomy Ovarian cystadenoma age 20 and removed ovary and appendix Social History Smoking Status: Never smoker Do You Dip or Chew Tobacco: No Hx Alcohol Use: Yes Alcohol type: wine alcohol intake frequency: a few times a week Alcohol Intake Frequency Comment: Glass of wine a couple times a week Hx Substance Use: No substance use type: does not use Physical Exam Vital Signs Last Vital Signs Temp 99.7 F H 12/10/21 13:04 Pulse 64 12/10/21 13:04 Resp 20 12/10/21 13:04 BP 117/65 12/10/21 13:04 Pulse Ox 97 12/10/21 13:04 O2 Del Method 12/10/21 12:39 O2 Flow Rate 0 12/08/21 18:40 Testing Laboratory Results 12/10/21 09:01 12/10/21 08:54 PT 10.6 Seconds (9.0-12.0) 12/08/21 14:41 INR 1.0 (0.9-1.1) 12/08/21 14:41 APTT 21.7 Seconds (21.0-31.0) 12/08/21 14:41 Urine Color Red 12/08/21 14:51 Urine Appearance Turbid (Clear) A 12/08/21 14:51 Urine pH 7.5 (4.5-7.5) 12/08/21 14:51 Ur Specific [place] 1.025 (1.000-1.030) 12/08/21 14:51 Urine Protein 3+ (Negative) H 12/08/21 14:51 Urine Glucose (UA) Negative (Negative) 12/08/21 14:51 Urine Ketones Negative (Negative) 12/08/21 14:51 Urine Nitrite Negative (Negative) 12/08/21 14:51 Ur Leukocyte Esterase Trace (Negative) H 12/08/21 14:51 Urine RBC >30 /hpf (0-4) H 12/08/21 14:51 Urine WBC 10-30 /hpf (0-5) H 12/08/21 14:51 Ur Epithelial Cells 0-5 /lpf (0-5) 12/08/21 14:51 Blood Type B Negative 12/08/21 16:10 Antibody Screen NEGATIVE 12/08/21 16:10 12/08/21 14:51 Urine Culture - Final Urine,Clean Catch Three types of organisms present, all high counts probable skin samantha. No further identifications or sensitivities to follow. Electrocardiogram Date: 12/09/21 Normal sinus rhythm, rate [address] abnormality Abnormal ECG When compared with ECG of 08-DEC-2021 14:32, Nonspecific T wave abnormality no longer evident in Anterior leads Confirmed by Joe Chang ([id number]) on 12/09/2021 8:45:21 AM Echocardiogram Date: 08/13/19 Normal LV size and systolic function EF 55-60% No regional wall motion abnormalities Mild concentric LVH Sclerotic AV without significant stenosis
[2021-12-10] MEDS ORDERED: ePHEDrine sulfate 50 MG/ML AMP IV PRN (13:17)
[2021-12-10] MEDS ORDERED: fentaNYL citrate 100 MCG/2 ML VIAL IV PRN (13:17)
[2021-12-10] MEDS ORDERED: ATROPINE SULFATE 0.1 MG/ML 10ML SYR IV PRN (13:17)
[2021-12-10] MEDS ORDERED: ONDANSETRON INJ 2 MG/ML 2 ML VIAL IV PRN (13:17)
[2021-12-10] MEDS ORDERED: ONDANSETRON INJ 2 MG/ML 2 ML VIAL ONE (13:32)
[2021-12-10] MEDS ORDERED: fentaNYL citrate 100 MCG/2 ML VIAL ONE (13:33)
[2021-12-10] MEDS ORDERED: DEXAMETHASONE SOD INJ 4 MG/ML VIAL ONE (13:33)
[2021-12-10] MEDS ORDERED: PROPOFOL IV EMULSION 10 MG/ML 20 ML VIAL IV ONE (13:33)
[2021-12-10] MEDS ORDERED: LIDOCAINE 2% MPF LOCAL 5 ML VIAL INFIL ONE (13:33)
--- NOTE | 2021-12-10 13:38 | Urology Progress Note ---
Date of Service December 10, 2021 Assessment & Plan (1) Hematuria: (2) Transitional cell carcinoma: Plan 81-year-old female with hematuria, right flank and the CT scan finding concerning for right upper tract urothelial cancer. Discussed with patient planning on cystoscopy, right retrograde pyelogram, right ureteroscopy, possible biopsy, possible ablation, right ureteral stent placement and she would like to proceed Risks and benefits discussed and patient provided consent. She understands that she may only get a stent this procedure Patient has required blood today but discussed with anesthesia and they feel it is safe to move forward Patient marked Discussed care with patient's nephew per her request Admission and Anticipated Discharge Date Admission Date: December 08, 2021 Subjective No acute issues overnight. Pain improved. Continues to have hematuria. Hgb 6.9, received one unit with improvement in vitals. Patient desires procedure today. Review of Systems Review of Systems: 14 point review of systems negative outside of what is lis judy above in HPI Physical Exam Physical Exam: General: Alert and oriented, no acute distress HEENT: Normocephalic, mucous membranes moist Pulmonary: Nonlabored respirations Abdomen: Nondistended Extremities: Moves all 4 spontaneously Neuro: No gross deficits Skin: Warm, dry, no rashes noted Results & Data ([facility]) Vital Signs (Past 12 Hours) Vital Signs Temp Pulse Pulse Resp BP BP Pulse Ox 12/10/21 13:23 37.5 C 63 18 114/65 98 12/10/21 13:04 37.6 C H 64 20 117/65 97 12/10/21 12:28 37.3 C 69 20 124/70 98 12/10/21 12:39 37.3 C 69 20 124/70 98 12/10/21 12:08 37.6 C H 60 18 106/66 94 12/10/21 11:53 37.7 C H 60 18 108/68 95 12/10/21 11:32 37.8 C H 61 16 106/61 94 12/10/21 11:03 37.3 C 60 18 94/53 L 97 12/10/21 10:45 37.2 C 63 18 96/60 L 95 12/10/21 10:34 12/10/21 09:22 116/78 12/10/21 07:59 91/48 L 12/10/21 07:43 57 L 12/10/21 07:26 37.3 C 62 16 93/55 L 95 12/10/21 03:20 38.2 C H 62 18 104/58 L 95 Pulse Ox O2 Del Method O2 Del Method 12/10/21 13:23 12/10/21 13:04 12/10/21 12:28 12/10/21 12:39 Room Air 12/10/21 12:08 12/10/21 11:53 12/10/21 11:32 12/10/21 11:03 Room Air 12/10/21 10:45 Room Air 12/10/21 10:34 95 Room Air 12/10/21 09:22 12/10/21 07:59 12/10/21 07:43 12/10/21 07:26 Room Air 12/10/21 03:20 Room Air PG Care Time/CCT Total # of Minutes Spent Total Time Spent with Patient: Total time spent is greater than 50% in coordination of care (as documented) at patient's floor/unit and/or counseling patient: Coding Level of Care Code 70985 Subseq Hosp Care Lvl 2 Diagnoses Hematuria R31.9 Hematuria type: unspecified type Transitional cell carcinoma C68.9 (1) Hematuria Hematuria type: unspecified type Qualified Code(s): R31.9 - Hematuria, unspecified
[2021-12-10] MEDS ORDERED: ceFAZolin 2,000 MG/15 ML IV PUSH IV ONE (13:50)
[2021-12-10] MEDS ORDERED: ceFAZolin 2000MG 2,000 MG/15 ML SYR IV ONE (13:52)
[2021-12-10] MEDS ORDERED: DIATRIZOATE MEGLUMINE 30% 100ML VIAL INSTIL ONE (14:16)
--- NOTE | 2021-12-10 14:56 | Post Operative Brief Note ---
PG Immediate Post Op with CF Date of Surgery December 10, 2021 Pre & Post Diagnosis Operation Date: 12/10/21 10:40 Pre-Op Diagnosis: HEMATURIA Post-Op Diagnosis: hematuria, uppertract cancer I identified the patient and participated in the time-out.: Yes Procedure Operation Date: 12/10/21 10:40 Actual Procedures p Cystoscopy, Right Retrograde Pyelogram, Right Ureteroscopy, Biopsy(Right) - Vadim Martin MD Surgeon Vadim Martin MD Manager Market Research None Estimated Blood Loss 5 Findings See Below Retrograde pyelogram showed goblet sign consistent with upper tract filling defect and suspected cancer. Bladder and ureter were free of any tumors. Right upper pole was filled with a lot of clot but there were papillary growths concerning for cancer. These were biopsied. Visualization was poor but did not see any active bleeding. Specimens Specimen Description: A. urine cytology right kidney B. right upper pole biopsy C. brush biopsy of right upper pole Anesthesia Type General
--- NOTE | 2021-12-10 15:01 | Operative Report ---
PG Post Operative Report Pre & Post Diagnosis Operation Date: 12/10/21 10:40 Pre-Op Diagnosis: HEMATURIA Post-Op Diagnosis: hematuria, upper tract cancer I identified the patient and participated in the time-out.: Yes Procedure Operation Date: 12/10/21 10:40 Actual Procedures p Cystoscopy, Right Retrograde Pyelogram, Right Ureteroscopy, Biopsy(Right) - Vadim Martin MD Surgeon Vadim Martin MD Manager Ed None Estimated Blood Loss 5 Findings See Below Bladder and urethra free of any lesions Right upper pole with significant clot that obscured visualization. There were papillary growths from the upper pole consistent with upper tract urothelial cancer. These were biopsied. No active bleeding was seen. Clots were too large to evacuate out of the kidney. Retrograde pyelogram showed large filling defect and goblet sign in the kidney consistent with upper tract cancer Opted not to leave a stent as this will likely be irritative and could get pushed out by any blood clot Specimens 1. Right upper tract cytology 2. Right upper pole biopsy 3. Right upper pole brush biopsy Drains None Anesthesia Type General Indications 81-year-old female with hematuria, right flank pain, anemia and a CT scan showing a large upper tract filling defect concerning for upper tract cancer. Preop urine culture was negative. Patient was status post 3 units of blood and hemodynamically stable. Discussed with anesthesia and they felt it was safe to proceed. Description of Procedure After informed consent was obtained, the patient was transported to the operative suite. General anesthesia was induced. They were placed in dorsal lithotomy position and prepped and draped in sterile fashion. They received preoperative Ancef. An appropriate surgical timeout was performed. A 22 [place] rigid cystoscope was inserted per urethra into the bladder. There is significant hematuria in the bladder which was evacuated out. I then turned my attention the right ureteral orifice which did have blood draining from it. I advanced a 5 [place] open-ended catheter and irrigated this with saline and sent this off for a right upper tract cytology. I then shot a right retrograde pyelogram which showed a large filling defect in the right upper pole consistent with a goblet sign and concern for upper tract cancer. I then advanced a sensor wire into the upper pole of the kidney. I then removed the 5 [place] open-ended catheter. I attempted to freehand a flexible ureteroscope to the ureter but was unsuccessful. Using a 10 [place] dual-lumen, I advanced a second sensor wire to upper pole of the kidney confirmed this fluoroscopically. I then advanced the flexible ureteroscope over one of the sensor wires into the proximal ureter. Sensor wire was removed. Dias pyeloscopy revealed a significant mount of clot in the upper pole. Visualization was very difficult. There were papillary like growths in the upper pole consistent with upper tract cancer and I took several pictures of these. Using a Piranha biopsy, I took 2 separate biopsies. I remove the parotid biopsy and then advanced a brush biopsy and performed a biopsy using this as well. I did not see any source of active bleeding but again visualization was quite poor. The clots were too large to attempt to evacuate out of the kidney. I remove the ureteroscope under direct visualization did not note any ureteral tumors. I opted not to place a stent as I think this will likely cause irritation, possibly worsen bleeding and may be dislodged by the clots passing down to the bladder. The bladder was emptied and the scope was removed. This concluded the end the case. All counts correct at the end of the case. I was present And actively participated for the entire to the procedure I attest to the content of the Intraoperative Record and any orders documented therein. Any exceptions are noted below.
--- NOTE | 2021-12-10 15:34 | Fluoroscopy Report ---
FL retrograde includes kub CLINICAL HISTORY: RETROGRADE COMPARISON STUDY: Abdomen and pelvis CT 12/08/2021. FLUOROSCOPY TIME: 38 seconds. FINDINGS: 6 fluoroscopic spot images of the abdomen and pelvis demonstrate retrograde opacification o f the right renal collecting system. There is a filling defect seen within the right renal collecting system. IMPRESSION: Confirmation of a filling defect within the right renal collecting system. This could rep resent a urothelial malignancy. ACT 112: Negative or not required by law. Electronically signed by: Eliecer Nunez M.D. 12/10/2021 3:32 PM
--- NOTE | 2021-12-10 15:37 | Anesthesiology Progress Note ---
Date of Service December 10, 2021 Anesthesia Post Procedure Vital Signs Vital Signs: Temp Pulse Pulse Resp BP BP Pulse Ox 12/10/21 15:25 60 18 142/74 H 95 12/10/21 15:15 62 18 153/74 H 95 12/10/21 15:05 37.7 C H 61 18 132/68 97 12/10/21 13:23 37.5 C 63 18 114/65 98 12/10/21 13:04 37.6 C H 64 20 117/65 97 12/10/21 12:28 37.3 C 69 20 124/70 98 12/10/21 12:39 37.3 C 69 20 124/70 98 12/10/21 12:08 37.6 C H 60 18 106/66 94 12/10/21 11:53 37.7 C H 60 18 108/68 95 12/10/21 11:32 37.8 C H 61 16 106/61 94 12/10/21 11:03 37.3 C 60 18 94/53 L 97 12/10/21 10:45 37.2 C 63 18 96/60 L 95 12/10/21 10:34 12/10/21 09:22 116/78 12/10/21 07:59 91/48 L 12/10/21 07:43 57 L 12/10/21 07:26 37.3 C 62 16 93/55 L 95 12/10/21 03:20 38.2 C H 62 18 104/58 L 95 12/10/21 00:45 65 12/09/21 22:38 37.7 C H 70 19 104/60 91 12/09/21 20:27 36.9 C 12/09/21 19:36 37.9 C H 72 18 107/70 98 12/09/21 15:40 36.9 C 67 19 100/62 96 Pulse Ox O2 Del Method O2 Del Method O2 Flow Rate 12/10/21 15:25 Room Air 12/10/21 15:15 Room Air 12/10/21 15:05 Oxymask 5 12/10/21 13:23 12/10/21 13:04 12/10/21 12:28 12/10/21 12:39 Room Air 12/10/21 12:08 12/10/21 11:53 12/10/21 11:32 12/10/21 11:03 Room Air 12/10/21 10:45 Room Air 12/10/21 10:34 95 Room Air 12/10/21 09:22 12/10/21 07:59 12/10/21 07:43 12/10/21 07:26 Room Air 12/10/21 03:20 Room Air 12/10/21 00:45 12/09/21 22:38 Room Air 12/09/21 20:27 12/09/21 19:36 Room Air 12/09/21 15:40 Room Air Pain Intensity Right Flank: Pain Intensity: 0 Transfer of Care Handoff Completed per policy Notes Mental Status: alert / awake / arousable and participated in evaluation Patient Amnestic to Procedure: Yes Nausea / Vomiting: adequately controlled Pain: adequately controlled Airway Patency, RR, SpO2: stable & adequate BP & HR: stable & adequate Hydration State: stable & adequate Anesthetic Complications: no major complications apparent and Pt Satisfied with anesthetic care
[2021-12-10] MEDS: ONDANSETRON INJ 2 MG/ML 2 ML VIAL IV PRN (17:24)
[2021-12-10 19:58] LABS: Hematocrit (blood only) 30.1 % (34.1-44.9); Hemoglobin 10.3 g/dl (12.0-16.0)
[2021-12-10] MEDS: ATORVASTATIN 40 MG TAB PO SCH (20:20)
[2021-12-10] MEDS: TAMOXIFEN CITRATE 10 MG TABLET PO SCH (20:22)
[2021-12-11 06:56] LABS: Basophils # (auto) 0.01 K/uL (0-0.2); Basophils % (auto) 0.1 %; Eosinophils # (auto) 0.01 K/uL (0-0.50); Eosinophils % (auto) 0.1 %; Hematocrit (blood only) 28.3 % (34.1-44.9); Hemoglobin 9.4 g/dl (12.0-16.0); Immature Granulocytes # (auto) 0.03 K/uL (0.00-0.02); Immature Granulocytes % (auto) 0.4 %; Lymphocytes # (auto) 1.18 K/uL (1.2-3.4); Lymphocytes % (auto) 13.9 %; Mean Corpuscular Hemoglobin 30.6 pg (25.0-34.0); Mean Corpuscular Hgb Conc 33.2 g/dL (32.0-36.0); Mean Corpuscular Volume 92.2 fL (80.0-100.0); Monocytes # (auto) 0.61 K/uL (0.24-0.82); Monocytes % (auto) 7.2 %; Neutrophils # (auto) 6.66 K/uL (1.4-6.5); Neutrophils % (auto) 78.3 %; Platelet Count 203 K/uL (130-400); RDW Coefficient of Variation 14.1 % (11.5-14.5); RDW Standard Deviation 47.2 fL (36.4-46.3); Red Blood Count 3.07 M/uL (3.93-5.22)
[2021-12-11 07:32] LABS: BUN Creatinine Ratio 11.2 (10-20); Creatinine Clr Calc Pharmacy 48.1 ml/min; Est GFR (African American) 63.1 ml/min; Est GFR (Non-African American) 54.5 ml/min; Potassium 4.1 mmol/L (3.5-5.1)
[2021-12-11] MEDS: hydroCHLOROthiazide 25 MG TAB PO SCH (08:32)
[2021-12-11] MEDS: BISOPROLOL FUMARATE 5 MG TAB PO SCH (08:33)
[2021-12-11] MEDS: POTASSIUM CHLORIDE CRTAB 20 MEQ TABCR PO SCH (08:33)
[2021-12-11] MEDS: hydrALAZINE TAB 50 MG TAB PO SCH (08:33)
--- NOTE | 2021-12-11 10:03 | Urology Progress Note ---
Date of Service December 11, 2021 Assessment & Plan (1) Hematuria: Plan 81-year-old female with hematuria, right flank and the CT scan finding concerning for right upper tract urothelial cancer. She is status post cystoscopy, right retrograde pyelogram, right ureteroscopy and biopsy on 12/10/2021. Findings intraoperatively were concerning for upper tract urothelial cancer. Biopsy results are pending. Denies any pain from the procedure. She still report hematuria and I had a l hellen discussion with her explaining that this is expected. I explained that there is no active bleeding in her kidney but she had a large amount of clot which will slowly dissolve and drop down the bladder and she will urinate this out. I told her to expect hematuria for likely several weeks. Recommend continuing to trend hemoglobin. Once she is stable, likely safe from a urologic perspective to be discharged Pathology pending. Will call patient with results. Explained that she likely will need a right nephro ureterectomy based on appearance of her kidney and bleeding Urology to follow Admission and Anticipated Discharge Date Admission Date: December 08, 2021 Subjective Patient is status post cystoscopy, right ureteroscopy and biopsy of suspected upper tract cancer yesterday. Denies any pain. Hemoglobin was stable and improved at 9.4 this morning. Creatinine is stable. She still reports blood in her urine which is expected based on her findings in the OR yesterday. Review of Systems Review of Systems: 14 point review of systems negative outside of what is listed above in HPI Physical Exam Physical Exam: General: Alert and oriented, no acute distress HEENT: Normocephalic, mucous membranes moist Pulmonary: Nonlabored respirations Abdomen: Nondistended Extremities: Moves all 4 spontaneously Neuro: No gross deficits Skin: Warm, dry, no rashes noted Results & Data ([facility]) Vital Signs (Past 12 Hours) Vital Signs Temp Pulse Pulse Resp BP Pulse Ox O2 Del Method 12/11/21 07:13 37.2 C 58 L 16 117/64 95 Room Air 12/11/21 03:07 37.2 C 61 16 119/60 93 12/10/21 23:16 64 12/10/21 22:49 37.6 C H 64 18 121/65 93 Room Air PG Care Time/CCT Total # of Minutes Spent Total Time Spent with Patient: Total time spent is greater than 50% in coordination of care (as documented) at patient's floor/unit and/or counseling patient: Coding Level of Care Code 14878 Subseq Hosp Care Lvl 2 Diagnoses Hematuria R31.9 Hematuria type: unspecified type (1) Hematuria Hematuria type: unspecified type Qualified Code(s): R31.9 - Hematuria, unspecified
[2021-12-11 12:47] LABS: Basophils # (auto) 0.02 K/uL (0-0.2); Basophils % (auto) 0.2 %; Eosinophils # (auto) 0.05 K/uL (0-0.50); Eosinophils % (auto) 0.6 %; Hematocrit (blood only) 28.7 % (34.1-44.9); Hemoglobin 9.6 g/dl (12.0-16.0); Immature Granulocytes # (auto) 0.03 K/uL (0.00-0.02); Immature Granulocytes % (auto) 0.3 %; Lymphocytes # (auto) 1.71 K/uL (1.2-3.4); Lymphocytes % (auto) 19.5 %; Mean Corpuscular Hemoglobin 30.8 pg (25.0-34.0); Mean Corpuscular Hgb Conc 33.4 g/dL (32.0-36.0); Mean Platelet Volume 8.9 fL (9.4-12.3); Monocytes # (auto) 0.67 K/uL (0.24-0.82); Monocytes % (auto) 7.6 %; Neutrophils # (auto) 6.31 K/uL (1.4-6.5); Neutrophils % (auto) 71.8 %; Platelet Count 225 K/uL (130-400); RDW Coefficient of Variation 14.1 % (11.5-14.5); Red Blood Count 3.12 M/uL (3.93-5.22); White Blood Count 8.79 K/ul (4.8-10.8)
--- NOTE | 2021-12-11 16:19 | Discharge Summary ---
Date of Service December 11, 2021 Admission HPI Per Admitting Provider Janice Duncan is a 81 y/o female who presented to the ED with complaint of hematuria and shortness of breath. Her PMH includes HTN, HLD, hx of r. breast cancer (lumpectomy and left mastectomy-2018), and osteopenia. She originally presented to her PCP on 11/23 for hematuria that began on 11/20, she had a UA and CT scan at that time- was also referred to Urology but appointment was not until . She notes that since then she has had hematuria continuously since onset and intermittent clots. States her urine output has been normal, denies any increased frequency or urgency. She notes that she has had increasing shortness of breath and weakness with any exertion, admits to some dizziness but no syncope. Patient states she has been able to do her normal activities at home, visit her , etc. but has had shortness of breath with any activity. She states today she decided she could not wait until to see the urologist as her shortness of breath and hematuria were not improving, so she presented to the ED. She denies any fever, chills, nausea, vomiting, abdominal pain, chest pain/pressure, back/flank pain. Denies melena but notes her hematuria has made it difficult to see in her toilet bowl. Denies any changes in medication and does not take any anticoagulants, aspirin, etc. States she has not had any recent illness. Janice states she has had a lot of stress recently, in the past few weeks her who has depression was moved to a fpc. She states that she now lives alone at home, but has a twin sister in [place] who she is very close with (Melvina Betancurlla [phone]). She requests that her niece/nephew are added as contacts for as they are in the medical field: Taryn Acosta [phone], Qasim Acosta [phone]. Admission Exam Per Admitting Provider Eyes: PERRL, conjunctivae normal, anicteric sclerae ENMT: external ear and nose normal, oropharynx normal mild pallor of mucus membranes Neck: trachea midline, no thyromegaly Respiratory: normal respiratory effort, lungs clear to auscultation Cardiovascular: RRR, no murmur, no edema Gastrointestinal (Abdomen): normal bowel sounds, soft, nontender, no hepatosplenomegaly Musculoskeletal: no lower back pain or CVA tenderness Psychiatric: A+Ox3, euthymic affect Principal Diagnosis Hematuria, blood loss anemia Discharge Exam General: Well-appearing, alert, interactive, and in no acute distress. HEENT: Normocephalic, atraumatic. EOM intact. Good conjugate gaze. Nares patent. Moist mucosal membranes. Neck: Supple. No lymphadenopathy. Normal ROM. CV: Regular rate and rhythm. Normal S1 and S2. No murmurs gallops or rubs. Respiratory: Normal respiratory effort. Lungs clear to auscultation bilaterally. No crackles, rhonchi, or wheezes. Abdomen: Soft, nondistended abdomen. No bruits heard on auscultation. No tenderness to deep palpation. No guarding or rebound. Extremities: Capillary refill <2 sec. 2+ dp equal bilaterally. No pedal edema. Neuro: Alert and oriented x3. Skin: Clean, dry, and intact. No rashes, bruises, or erythema. Discharge Data Allergies Allergy/AdvReac Type Severity Reaction Status Date / Time terbinafine Allergy Intermediate rash Verified 12/08/21 18:28 lisinopril AdvReac Mild cough Verified 12/08/21 18:28 Consultations 12/08/21 17:49 ED Decision to Admit Stat 12/09/21 05:50 Consult Urology Routine Procedures Performed Operation Date: 12/10/21 10:40 Actual Procedures p Cystoscopy, Right Retrograde Pyelogram, Right Ureteroscopy, Biopsy(Right) - Vadim Martin MD Ordered Studies 12/08/21 16:32 CT angio abdomen pelvis w con Stat 12/10/21 [place] retrograde includes kub Routine Hospital Course (1) Anemia: Janice is a 81 y/o female who presented to the ED with painless hematuria over 2+ weeks in addition to shortness of breath/weakness. Her PMH includes HTN, HLD, hx of r. breast cancer (lumpectomy and left mastectomy-2018), and osteopenia. Hematuria/Concern for Transitional Cell Carcinoma -Suspect non-glomerular hematuria -UA: turbid, 3+ urine blood, 3+ urine protein -Urology consulted, appreciate recommendations -CTA (12/08): "intraluminal mass-like abnormality within right upper collecting system which may extend into renal parenchyma." Concern for transitional cell carcinoma. -CT (11/27): "slightly hyperdense filling defect in the right upper pole collecting system extending into right renal pelvis." -Patient was seen by urology PA, who declined uroscopy. Decision was made to take patient for uteroscopy the following day after hematuria returned. -Per operative report: Right upper pole of right kidney contained papillary growths concerning for cancer which were biopsied. Lots of clotting observed, which were unable to be removed during the procedure. Unable to place stents due to * Follow renal pathology from cystoscopy * Appreciate urology recs * Trend CBC. Bladder scan as needed. * Outpatient CBC to be completed Tuesday Abdominal pain -Now status post Percocet tablet x1 in ER, IV morphine 1 mg this morning. -Nonspecific. Unclear etiology. Reported pain wildly out of proportion to physical exam. -Well managed on Percocet every 4 hours as needed. Anemia -Normocytic anemia, likely from hematuria -Hemoglobin: 5.5 (down from 11.4 two weeks ago). -CTA: No active extravasation -Vitals stable. -APTT, INR within normal limits. -Received pRBC transfusions x4 units overall. * Repeat afternoon CBC stable at time of discharge Dyspnea on Exertion -O2 sat 100% on room air. Asymptomatic. -Lungs CTAB, no LE edema -Likely 2/2 to drop in hemoglobin Hypokalemia: Repleted with IV potassium. Trend BMP. Hypertension: Continue home regimen of Hydralazine, Bisoprolol- hydrochlorothiazide Hyperlipidemia: Continue atorvastatin Hx of Breast Cancer: Continue tamoxifen (2) Transitional cell carcinoma: (3) Hematuria: (4) Hypertension: (5) Hyperlipidemia: (6) History of mastectomy: (7) Dyspnea on exertion: Total Time Total Time Spent Total Time Spent (In Minutes): 30 Discharge Plan Discharge Items Patient Disposition: Home - Self-Care Reason For Visit: HEMATURIA, DYSPNEA ON EXERTION Discharge Diagnosis: Hematuria, Blood loss anemia, Renal neoplasm Activity: Per Instructions section Non-emergency contact: Primary Care Provider and Urologist Call non-emergency contact if: you have any medication questions, your symptoms worsen, your pain is not controlled, your pain is worsening and your temperature is above 101 Follow-up/Referrals: Avi Ball V., MD [Primary Care Provider] - 12/21/21 11:00 am (follow up with PCP: DR ANDREW ORTEZ 12/21/21 11:00AM) Joe Greco MD [Physician] - Diet: Regular Addtl Attending Provider Instructions: Dear Janice, You were brought to the hospital because of your hematuria, or blood in your urine, and your shortness of breath. You were admitted to the hospital because you were found to have a significant blood loss anemia. A CT of your abdomen also showed that you had some unusual growths that were consistent with transitional cell carcinoma. You received multiple blood transfusions while we checked to ensure that your hemoglobin was stable, and, when you continued bleeding and required more transfusions, you were seen by the urology surgeon, who decided to examine your right kidney and ureters in surgery. He found the unusual growths and biopsied them. These samples were sent to pathology. Importantly, he did not see any active bleeding in your kidney. To confirm this, we ordered a second measurement of your hemoglobin today, which was stable when compared to your morning hemoglobin. Therefore, we feel that you are ready to be safely discharged home. We made no changes to your medicines. You may continue to take your home medicines as previously instructed, unless otherwise instructed by your primary care physician. * You should make an appointment with Dr. aBll, your primary care physician within 1-2 weeks. If you are unable to, please call the office at [phone]. * An appointment will be made for you to see your urologist. If you do not hear from the urologist office in 2-3 business days, you may call their office at [phone]. * To ensure that your hemoglobin levels are still stable after you are discharged, we have ordered a CBC for you to complete on Tuesday. A copy of the order sheet will be included in your discharge paperwork. As discussed with you by your urologist, you should expect to see blood in your urine for the next couple of weeks. If this persists for a month or longer, you may reach out to the urologist office at the above number. It has been a pleasure to care for you here [facility]. If you have any questions about your stay, please feel free to reach us at [phone]. Pending Studies at Discharge: Yes Studies:: Renal parenchymal biopsy Stand-Alone Forms: My [facility] [employer], Smoking Cessation Medications and DC Order Prescriptions: Continued bisoprolol-hydrochlorothiazide 10-6.25 mg tablet 1 tab PO BID Qty: 180 3RF hydralazine 50 mg tablet 50 mg PO BID Qty: 180 2RF potassium chloride 20 mEq tablet extended release 20 meq PO QAM Qty: 90 3RF tamoxifen 10 mg tablet 10 mg PO QPM calcium carbonate-vitamin D3 1 tab PO QPM cholecalciferol (vitamin D3) [Vitamin D3] 50 mcg (2,000 unit) Tablet 50 mcg PO QPM atorvastatin 40 mg tablet 40 mg PO QPM triamcinolone acetonide 0.1 % cream 1 appln TOP BID PRN (Reason: Skin Irritation) Discharge Orders: Discharge Order (Routine); Ordered 12/11/21 Ordered By: Larry Cruz/Other Patient Handouts: What is Hematuria? Admission Data Admit Date/Time: 12/08/21 21:15 Attending Provider: En Christine Admit Provider: Denisse Kiser Primary Care Provider: Avi Ball V. Other Providers: Andrea Casanova ; Joe Greco Other Interventions: Discharge Summary Assessment (RN) Last Done: 12/11/21 16:24 Supervising Physician Co-Signing Physician Notes Attending attestation Pt seen and examined in concert with Dr. Brooks. In agreement with the documented findings as noted in the resident documentation with any exceptions or additions as noted here. Ongoing hematuria more c/w irrigated clots and old blood than active bleeding and without other complaint acutely. Hematuria with concern for transitional cell carcinoma - urology consult - CBC stable and path pending. Follow up with urology with red flags for recurrent symptoms of bleeding and anemia, close f/u with PCP and repeat CBC Else see resident documentation as noted. Total attending physician time spent with this patients care on the day of discharge: 35 minutes. Resident Activity Tracking Resident Involvement: Resident Care Provided Care Provided: Adult Hospital Medicine
--- NOTE | 2021-12-17 11:48 | Coding Query ---
ANEMIA To promote full compliance with coding requirements relating to patient care, physician participation is requested in all cases of certified professional coder uncertainty. Please assist us with the question(s) below: Coding Question(s): The record reflects the following clinical findings: Pt with suspected TCC , admitted with gross hematuria and anemia. transfused with 2UPC's during this Inpatient Stay. If these findings are indicative of anemia, please specify the known or suspected type by placing an "X" within the parenthesis (x). If other, please document type. Examples are: (X) Acute blood loss anemia ( ) Acute Postoperative blood loss anemia ( ) Acute postoperative anemia due to dilutional fluids ( ) Chronic blood loss anemia ( ) Anemia of chronic disease ( ) Aplastic anemia ( ) Anemia due to renal disease ( ) Anemia in neoplastic disease ( ) Iron deficient anemia ( ) Anemia, unspecified or other ( ) Other: (please specify) ( ) Unable to determine Thank you SANJEEV Gil [facility]
--- NOTE | 2021-12-17 11:51 | Coding Query ---
PATHOLOGY To promote full compliance with coding requirements relating to patient care, physician participation is requested in all cases of residential caregiver uncertainty. Please assist us with the question(s) below: Please review the Pathology report and please document any relevant diagnosis(es) below. Seeking to clarify the primary site of the TCC. Thank you . 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 MTDD
== END 2021-12-11 17:39 | disposition home or self-care (01) | DRG 687 ==
LOC: ED 13:57 → 2S 21:15 → SUATTDRO 21:15 → 2S 22:15

== ENCOUNTER 2021-12-22 05:47 | Inpatient (IN) ==
--- NOTE | 2021-12-21 11:22 | Anesthesiology Consultation ---
Date of Service December 21, 2021 Assessment & Plan (1) Encounter for pre-operative examination: - COVID screening: Per assessment on 12/21: No known COVID-19 positive contacts or current COVID-19 related symptoms. Travel screen negative. Patient vaccinated. At surgeon discretion if preop Covid testing being done. - S/P cysto, ureteroscopy (12/10/21): LMA#4 at [facility]. No issues noted per post-op anesthesia progress note. - Trace pleural effusions: "Trace right pleural effusion. Although nonspecific, this is probably not malignant. This can be assessed on follow-up exams to en sure resolution." per 12/17/[address] Patient seen by PCP 12/21/21- per physical exam, "Respiration rate is normal. No use of accessory muscles noted. Auscultate good airflow. NO wheezes, rales, or rhonchi. CTA" > Patient late case add-on day prior to surgery 12/22. At anesthesiologist discretion AM DOS if further imaging needed prior to surgery from their perspective. - PCP office visit (12/21/21): "Patient has not noted any ongoing hematuria since last week. She has follow up today with urology and states that they plan to discuss moving surgery up to tomorrow 12/22. Would recommend repeat CBC prior to undergoing surgery and we can order if urology does not - patient to send portal message to let us know the plans. Patient would like noted in her chart that she no longer wishes to see Dr. Ruffin. She is frustrated that she was not sent to the ER immediately upon last visit. Explained that Dr. Ruffin likely did not feel that her clinical presentation at that time warranted ER and that her Hgb was stable at that point but will note in chart patient's wishes. She also would like the weight in hospital removed from her chart on 12/11. States that she was weighed in the bed covered in blankets and she does not want that weight on her record." Patient late case add-on day prior to surgery 12/22. Does not appear CBC was updated at time of chart review. Will order CBC AM DOS if not done prior. Chart Review Chart Review: Acceptable Risk for Surgery (pending CBC/evaluation AM DOS) and Patient NOT seen in Pre Admission Testing History Surgery Operation Date: 12/22/21 07:30 Proposed Procedures p Robotic Laparoscopic Nephrectomy - Joe Greco MD Height/Weight Height: 5 ft 4 in Weight: 73.936 kg Allergies Allergy/AdvReac Type Severity Reaction Status Date / Time terbinafine Allergy Intermediate rash Verified 12/21/21 12:55 lisinopril AdvReac Mild cough Verified 12/21/21 12:55 Medications Home Medications Medication Instructions Recorded Confirmed Last Taken cholecalciferol (vitamin D3) 50 50 mcg PO QPM 08/13/19 12/21/21 12/07/21 mcg (2,000 unit) tablet (Vitamin D3) calcium carbonate-vitamin D3 1 tab PO QPM 08/17/19 12/21/21 12/07/21 [Oyster Shell Calcium-Vit D3] tamoxifen 10 mg tablet 10 mg PO QPM 12/27/19 12/21/21 12/07/21 bisoprolol 10 1 tab PO BID #180 tabs 07/10/21 12/21/21 12/08/21 07:00 mg-hydrochlorothiazide 6.25 mg tablet hydralazine 50 mg tablet 50 mg PO BID #180 tabs 08/17/21 12/21/21 12/08/21 07:00 potassium chloride 20 mEq 20 meq PO QAM #90 tabs 08/17/21 12/21/21 12/08/21 tablet,extended release atorvastatin 40 mg tablet 40 mg PO QPM 12/08/21 12/21/21 12/07/21 triamcinolone acetonide 0.1 % 1 appln topical BID PRN Skin 12/08/21 12/21/21 Unknown topical cream Irritation ferrous sulfate 325 mg (65 mg 325 mg PO HS 12/21/21 12/21/21 Unknown iron) tablet mecobalamin (vitamin B12) 1,000 1,000 mcg sublingual HS 12/21/21 12/21/21 Unknown mcg disintegrating tablet,sublingual Past Medical History Medical History Age related osteoporosis osteopenia Anemia Atypical ductal hyperplasia, breast Breast cancer, left 2018, s/p chemo/radiation History of COVID-19 08/31/21 > cough, resolved Hyperlipidemia Hypertension Osteopenia Tachycardia Episodic r/t medications, no recent issues Transitional cell carcinoma Past Family History Family History Mother Heart disease Breast cancer Aunt Breast cancer Father Prostate cancer Denies family history of Colon cancer Ovarian cancer Myocardial infarction Past Surgical History Surgical History H/O lumpectomy right History of appendectomy History of cataract surgery R/L History of cystoscopy History of mastectomy (04/06/17) Left Mastectomy with sentinel lymph node biopsy Hx of tonsillectomy Ovarian cystadenoma age 20 and removed ovary and appendix Social History Smoking Status: Never smoker Hx Alcohol Use: Yes Alcohol type: wine alcohol intake frequency: a few times a week Hx Substance Use: No substance use type: does not use Lab Results Anesthesia Preop Results Results Anesthesia Widget: WBC 6.09 K/ul (4.8-10.8) 12/14/21 Hgb 9.1 g/dl (12.0-16.0) L 12/14/21 Hct 28.1 % (34.1-44.9) L 12/14/21 Plt 291 K/uL (130-400) 12/14/21 Na 135 mmol/L (136-145) L 12/11/21 K 4.1 mmol/L (3.5-5.1) 12/11/21 Cl 104 mmol/L (98-107) 12/11/21 CO2 25 mmol/L (21-32) 12/11/21 BUN 11 mg/dl (6-23) 12/11/21 Creat 0.98 mg/dl (0.6-1.2) 12/11/21 Glucose Level 106 mg/dl (70-99(Fasting)) H 12/11/21 PT 10.6 Seconds (9.0-12.0) 12/08/21 PTT 21.7 Seconds (21.0-31.0) 12/08/21 INR 1.0 (0.9-1.1) 12/08/21 Urine Color Red 12/08/21 Urine Appearance Turbid (Clear) A 12/08/21 Urine pH 7.5 (4.5-7.5) 12/08/21 Urine Specific [place] 1.025 (1.000-1.030) 12/08/21 Urine Protein 3+ (Negative) H 12/08/21 Urine Glucose (UA) Negative (Negative) 12/08/21 Urine Ketones Negative (Negative) 12/08/21 Urine Blood 3+ (Negative) H 12/08/21 Urine Nitrite Negative (Negative) 12/08/21 Urine Bilirubin Negative (Negative) 12/08/21 Urine Urobilinogen Negative (Negative) 12/08/21 Urine Leukocyte Esterase Trace (Negative) H 12/08/21 Blood Type B Negative 12/08/21 Antibody Screen NEGATIVE 12/08/21 Testing Electrocardiogram Date: 12/09/21 NSR at 62bpm. NS STA. Echocardiogram Date: 08/13/19 EF 55-60%. No RWMA. Mild cLVH. AV sclerosis. Type I DD. Other Testing Chest CT (12/17/21) No convincing evidence for metastatic disease within the chest. Trace right pleural effusion. Although nonspecific, this is probably not malignant. This can be assessed on follow-up exams to ensure resolution.
[2021-12-22] MEDS ORDERED: LR 15ML/HR IV SCH (06:00)
[2021-12-22] MEDS ORDERED: ceFAZolin 2000MG 2,000 MG/15 ML SYR IV SCH (06:00)
--- NOTE | 2021-12-22 06:18 | History & Physical Bridge Note ---
Date of Service December 22, 2021 History & Physical Bridge Note I have examined the patient, reviewed the History & Physical and in the interval since the performance of the History & Physical I have noted the following changes of clinical significance: no changes noted
[2021-12-22 06:32] LABS: Basophils # (auto) 0.04 K/uL (0-0.2); Basophils % (auto) 0.7 %; Eosinophils # (auto) 0.18 K/uL (0-0.50); Eosinophils % (auto) 3.1 %; Hematocrit (blood only) 28.5 % (34.1-44.9); Hemoglobin 9.4 g/dl (12.0-16.0); Immature Granulocytes # (auto) 0.03 K/uL (0.00-0.02); Immature Granulocytes % (auto) 0.5 %; Lymphocytes # (auto) 1.48 K/uL (1.2-3.4); Lymphocytes % (auto) 25.1 %; Mean Corpuscular Hemoglobin 30.9 pg (25.0-34.0); Mean Corpuscular Volume 93.8 fL (80.0-100.0); Mean Platelet Volume 8.4 fL (9.4-12.3); Monocytes # (auto) 0.44 K/uL (0.24-0.82); Monocytes % (auto) 7.5 %; Neutrophils # (auto) 3.72 K/uL (1.4-6.5); Neutrophils % (auto) 63.1 %; Platelet Count 312 K/uL (130-400); RDW Coefficient of Variation 13.2 % (11.5-14.5); Red Blood Count 3.04 M/uL (3.93-5.22); White Blood Count 5.89 K/ul (4.8-10.8)
[2021-12-22] MEDS ORDERED: fentaNYL citrate 100 MCG/2 ML VIAL ONE ×2 (07:08→08:48)
[2021-12-22] MEDS ORDERED: HYDROmorphone INJ 2 MG/ML SYR/VIAL IV PRN (07:13)
[2021-12-22] MEDS ORDERED: ePHEDrine sulfate 50 MG/ML AMP IV PRN (07:13)
[2021-12-22] MEDS ORDERED: fentaNYL citrate 100 MCG/2 ML VIAL IV PRN (07:13)
[2021-12-22] MEDS ORDERED: ONDANSETRON INJ 2 MG/ML 2 ML VIAL IV PRN ×2 (07:13→12:09)
[2021-12-22] MEDS ORDERED: ATROPINE SULFATE 0.1 MG/ML 10ML SYR IV PRN (07:13)
[2021-12-22] MEDS ORDERED: MANNITOL 25% 12.5 GM/50 ML VIAL IV ONE (07:26)
[2021-12-22] MEDS ORDERED: BUPIVACAINE 0.5 % 5 MG/1 ML MPF 30ML VIAL ONE (07:32)
[2021-12-22] MEDS ORDERED: ROCURONIUM BROMIDE 10 MG/ML 5 ML VIAL IV ONE ×2 (08:43→10:01)
[2021-12-22] MEDS ORDERED: PHENYLEPHRINE 100MCG/ML 5ML SYR ONE (08:43)
[2021-12-22] MEDS ORDERED: NEOSTIGMINE METHYLSULFATE 1 MG/ML 10ML VIAL ONE (08:43)
[2021-12-22] MEDS ORDERED: GLYCOPYRROLATE 0.2 MG/ML VIAL ONE (08:43)
[2021-12-22] MEDS ORDERED: LIDOCAINE 2% MPF LOCAL 5 ML VIAL INFIL ONE (08:43)
[2021-12-22] MEDS ORDERED: ONDANSETRON INJ 2 MG/ML 2 ML VIAL ONE (08:43)
[2021-12-22] MEDS ORDERED: ePHEDrine sulfate 50 MG/ML SYR ONE (08:43)
[2021-12-22] MEDS ORDERED: DEXAMETHASONE SOD INJ 4 MG/ML VIAL ONE (08:43)
[2021-12-22] MEDS ORDERED: PROPOFOL IV EMULSION 10 MG/ML 20 ML VIAL IV ONE (08:43)
[2021-12-22] MEDS ORDERED: LARYING-O-JET KIT (LTA) ONE (08:43)
[2021-12-22] MEDS ORDERED: SUGAMMADEX SODIUM 200 MG/2 ML VIAL IV ONE (10:46)
--- NOTE | 2021-12-22 11:21 | Operative Report ---
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 She was placed in the left side down right side up lateral decubitus position with the bed flexed. She was padded and braced appropriately. Axillary roll was placed. To begin the true surgical part of the case a Cornejo catheter was inserted and a Veress needle was inserted into the right upper quadrant. Insufflation was uniform without difficulty. I marked tentative port sites in a standard robotic fashion for nephro ureterectomy. These were angled from the costal margin towards the midline down in the pelvis. There were 4 ports placed in linear fashion along this line. I began with the camera portsecond from most cephalad. Inspection revealed no significant adhesions. Other ports were placed without difficulty. I also placed a 5 mm subxiphoid retraction port and a 12 mm supraumbilical assisting port. To begin the case I mobilized the white line of Toldt and identify the lower quadratus fascia. We then mobilized the colon off of the kidney and I incised the peritoneum superior and lateral to the kidney. After medializing the colon I was able to identify the duodenum and kocherized it. The IVC was identified just behind it and I could also identify the renal vein at that time. Before dissecting into the hilar structures I turned my attention to the lower cone of 0 does not identify the gonadal vein and followed until its junction with the IVC. I also identified the ureter just lateral to the IVC. Given her TCC of the upper tract I elected to place a clip across the ureter at that time to avoid mobilization of any tumor cells. A Weck clip was placed without difficulty. The gonadal vein was spared. We then traced the lateral aspect of the IVC to the inferior aspect of the renal vein. I was able to dissect posterior to the hilar structures in the kidney and used the fourth arm of the robot to elevate the kidney and stretch the hilar vessels. I dissected superior to the renal artery and vein until the hilar structures were entirely skeletonized. I then controlled the 2 with a solitary staple load. I then carefully dissected between the kidney and the adrenal gland controlling numerous vascular connections. We completed the superior dissection of the kidney and the lateral dissection of the kidney which entirely freed it. I then turned my attention towards the ureter. We traced the ureter down to the crossing of the iliac vessels. I carefully worked over it. We then continue to follow the ureter into the deep pelvis. I incised the peritoneum overlying the ureter and traced it down to its junction with the bladder. With gentle cephalad traction I was able to attempt bladder mucosa out towards the ureter. Before transecting it and removing it from the bladder I preplaced a 3 oh V-Loc suture just lateral to anticipated resection of the bladder cuff. I partially incised into the bladder before returning to the stitch and partially closing the area that was open. I then completed the closure and utilized the previously placed stitch to help retract the bladder out towards me so I could close the remainder of the defect. A very nice bladder cuff was resected. Hemostasis was excellent and the closure seemed appropriate. Hemostasis throughout the remainder of the resection site also was appropriate. This concluded the laparoscopic portion of the case and I utilized a low midline incision that dated to the time of surgery in her teenage years to extract the specimen. Closed the midline fascia utilizing 0 PDS. I closed the 12 mm administrative personal assistant port with a 0 Vicryl through the fascia. A WOODROW drain was placed through one of the robotic ports and all other ports and incisions were closed with 4-0 Monocryl. All skin incisions were further closed with Dermabond. She was reversed of anesthesia and taken to the recovery room in stable condition. There were no complications. She tolerated the procedure very well Sabrina Luna assisted throughout the procedure. Vadim Martin was also present throughout the procedure. I attest to the content of the Intraoperative Record and any orders documented therein. Any exceptions are noted below.
[2021-12-22 11:31] LABS: Basophils # (auto) 0.03 K/uL (0-0.2); Basophils % (auto) 0.4 %; Eosinophils # (auto) 0.05 K/uL (0-0.50); Eosinophils % (auto) 0.6 %; Hematocrit (blood only) 29.6 % (34.1-44.9); Hemoglobin 9.6 g/dl (12.0-16.0); Immature Granulocytes # (auto) 0.04 K/uL (0.00-0.02); Immature Granulocytes % (auto) 0.5 %; Lymphocytes # (auto) 0.63 K/uL (1.2-3.4); Lymphocytes % (auto) 7.4 %; Mean Corpuscular Hemoglobin 30.5 pg (25.0-34.0); Mean Corpuscular Hgb Conc 32.4 g/dL (32.0-36.0); Mean Platelet Volume 8.5 fL (9.4-12.3); Monocytes # (auto) 0.15 K/uL (0.24-0.82); Monocytes % (auto) 1.8 %; Neutrophils # (auto) 7.57 K/uL (1.4-6.5); Neutrophils % (auto) 89.3 %; Platelet Count 318 K/uL (130-400); RDW Coefficient of Variation 13.3 % (11.5-14.5); RDW Standard Deviation 45.6 fL (36.4-46.3); Red Blood Count 3.15 M/uL (3.93-5.22); White Blood Count 8.47 K/ul (4.8-10.8)
--- NOTE | 2021-12-22 11:41 | Anesthesiology Progress Note ---
Date of Service December 22, 2021 Anesthesia Post Procedure Vital Signs Vital Signs: Temp Pulse Pulse Resp BP Pulse Ox O2 Del Method 12/22/21 11:35 36.5 C 76 14 142/78 H 93 Room Air 12/22/21 11:25 77 15 143/85 H 92 Room Air 12/22/21 11:15 100 H 15 137/73 98 Oxymask 12/22/21 11:05 70 15 137/72 98 Oxymask 12/22/21 10:55 36.3 C L 77 19 136/69 97 Oxymask 12/22/21 06:20 36.6 C 66 20 139/73 99 Room Air O2 Flow Rate 12/22/21 11:35 12/22/21 11:25 12/22/21 11:15 4 12/22/21 11:05 4 12/22/21 10:55 4 12/22/21 06:20 Pain Intensity Abdomen: Pain Intensity: 2 Transfer of Care Handoff Completed per policy Notes Mental Status: alert / awake / arousable and participated in evaluation Patient Amnestic to Procedure: Yes Nausea / Vomiting: adequately controlled Pain: adequately controlled Airway Patency, RR, SpO2: stable & adequate BP & HR: stable & adequate Hydration State: stable & adequate Anesthetic Complications: no major complications apparent and Pt Satisfied with anesthetic care
[2021-12-22 11:55] LABS: BUN Creatinine Ratio 14.6 (10-20); Calcium 8.5 mg/dl (8.5-10.1); Creatinine Clr Calc Pharmacy 49.6 ml/min; Est GFR (African American) 70.9 ml/min; Est GFR (Non-African American) 61.2 ml/min; Potassium 3.6 mmol/L (3.5-5.1)
[2021-12-22] MEDS ORDERED: ACETAMINOPHEN 325 MG TAB PO PRN (12:09)
[2021-12-22] MEDS ORDERED: MoRPHine SULFATE 2 MG/ML CARP IV PRN ×2 (12:09→17:46)
[2021-12-22] MEDS ORDERED: oxyCODONE HCL IR 5 MG TAB (IMMEDIATE RELEASE) PO PRN (12:09)
[2021-12-22] MEDS: MoRPHine SULFATE 4 MG/ML 1 ML CARP\\VIAL IV PRN ×2 (12:27→16:30)
[2021-12-22] MEDS: LACTATED RINGER'S 1,000 ML IV SCH ×2 (12:30→23:21)
[2021-12-22] MEDS: oxyCODONE HCL IR 5 MG TAB (IMMEDIATE RELEASE) PO PRN ×2 (13:29→17:49)
[2021-12-22] MEDS: KETOROLAC TROMETHAMINE 15 MG/ML VIAL IV SCH ×2 (15:38→21:18)
[2021-12-22] MEDS: ceFAZolin 2000MG 2,000 MG/15 ML SYR IV SCH ×2 (15:39→23:23)
[2021-12-22] MEDS ORDERED: BISOPROLOL PO SCH (21:00)
[2021-12-22] MEDS ORDERED: HYDROCHLOROTHIAZIDE PO SCH (21:00)
[2021-12-22] MEDS: TAMOXIFEN CITRATE 10 MG TABLET PO SCH (21:12)
[2021-12-22] MEDS: ATORVASTATIN 40 MG TAB PO SCH (21:13)
[2021-12-22] MEDS: hydroCHLOROthiazide 25 MG TAB PO SCH (21:13)
[2021-12-22] MEDS: hydrALAZINE TAB 50 MG TAB PO SCH (21:14)
[2021-12-22] MEDS: HEPARIN SOD 5,000 UNIT/0.5 ML VIAL SQ SCH (21:15)
[2021-12-22] MEDS: BISOPROLOL FUMARATE 5 MG TAB PO SCH (21:15)
[2021-12-22] MEDS: DOCUSATE SODIUM 100 MG CAP PO SCH (21:15)
[2021-12-23] MEDS: oxyCODONE HCL IR 5 MG TAB (IMMEDIATE RELEASE) PO PRN ×3 (05:14→22:37)
[2021-12-23] MEDS: KETOROLAC TROMETHAMINE 15 MG/ML VIAL IV SCH ×3 (05:15→22:38)
--- NOTE | 2021-12-23 08:05 | Urology Progress Note ---
Date of Service December 23, 2021 Assessment & Plan (1) Transitional cell carcinoma: Plan: Postop day #1 status post right nephro ureterectomy Advance diet at for lunch Ambulate this morning Await labs Determine discharge planning based on how she progresses through the morning Admission and Anticipated Discharge Date Admission Date: December 22, 2021 Subjective Subjectively feeling okay Has had expected levels of abdominal pain throughout the night Urine output has been adequate, clear urineno bleeding Serosanguineous drainage from the WOODROW Mild erythema around her lower abdominal incisionnot infectious in appearance, not warm I think this is early bruising Physical Exam Physical Exam: Incisions all seem appropriate, WOODROW serosanguineous and urine clear Results & Data ([facility]) Vital Signs (Past 12 Hours) Vital Signs Temp Pulse Resp BP Pulse Ox O2 Del Method 12/23/21 07:31 37.3 C 68 16 90/46 L 93 Room Air 12/23/21 04:07 37.6 C H 71 16 106/63 95 Room Air 12/22/21 21:58 37.0 C 69 16 118/68 97 Room Air PG Care Time/CCT Total # of Minutes Spent Total Time Spent with Patient: Total time spent is greater than 50% in coordination of care (as documented) at patient's floor/unit and/or counseling patient: Coding Level of Care Code None Diagnoses Transitional cell carcinoma C68.9
[2021-12-23] MEDS: LACTATED RINGER'S 1,000 ML IV SCH ×2 (08:19→18:23)
[2021-12-23] MEDS: DOCUSATE SODIUM 100 MG CAP PO SCH ×2 (08:19→20:34)
[2021-12-23] MEDS: HEPARIN SOD 5,000 UNIT/0.5 ML VIAL SQ SCH ×2 (08:20→20:31)
[2021-12-23] MEDS: BISOPROLOL FUMARATE 5 MG TAB PO SCH ×2 (08:29→20:32)
[2021-12-23] MEDS: hydrALAZINE TAB 50 MG TAB PO SCH ×2 (08:29→20:30)
[2021-12-23] MEDS: hydroCHLOROthiazide 25 MG TAB PO SCH ×2 (08:30→20:33)
[2021-12-23 08:37] LABS: Basophils # (auto) 0.01 K/uL (0-0.2); Basophils % (auto) 0.1 %; Eosinophils # (auto) 0.13 K/uL (0-0.50); Eosinophils % (auto) 1.4 %; Hematocrit (blood only) 24.1 % (34.1-44.9); Immature Granulocytes # (auto) 0.05 K/uL (0.00-0.02); Immature Granulocytes % (auto) 0.5 %; Lymphocytes # (auto) 0.68 K/uL (1.2-3.4); Lymphocytes % (auto) 7.4 %; Mean Corpuscular Hemoglobin 30.9 pg (25.0-34.0); Mean Corpuscular Hgb Conc 33.2 g/dL (32.0-36.0); Mean Corpuscular Volume 93.1 fL (80.0-100.0); Mean Platelet Volume 8.7 fL (9.4-12.3); Monocytes # (auto) 0.41 K/uL (0.24-0.82); Monocytes % (auto) 4.5 %; Neutrophils # (auto) 7.93 K/uL (1.4-6.5); Neutrophils % (auto) 86.1 %; Platelet Count 254 K/uL (130-400); RDW Coefficient of Variation 13.2 % (11.5-14.5); RDW Standard Deviation 45.2 fL (36.4-46.3); Red Blood Count 2.59 M/uL (3.93-5.22); White Blood Count 9.21 K/ul (4.8-10.8)
[2021-12-23 08:59] LABS: BUN Creatinine Ratio 11.9 (10-20); Calcium 7.8 mg/dl (8.5-10.1); Creatinine Clr Calc Pharmacy 37.4 ml/min; Est GFR (African American) 50.4 ml/min; Est GFR (Non-African American) 43.5 ml/min; Potassium 3.6 mmol/L (3.5-5.1)
[2021-12-23] MEDS: ATORVASTATIN 40 MG TAB PO SCH (20:30)
[2021-12-23] MEDS: TAMOXIFEN CITRATE 10 MG TABLET PO SCH (20:32)
[2021-12-24] MEDS: LACTATED RINGER'S 1,000 ML IV SCH ×2 (04:19→14:20)
[2021-12-24] MEDS: KETOROLAC TROMETHAMINE 15 MG/ML VIAL IV SCH ×2 (06:17→13:59)
[2021-12-24] MEDS: oxyCODONE HCL IR 5 MG TAB (IMMEDIATE RELEASE) PO PRN (06:18)
--- NOTE | 2021-12-24 07:21 | Urology Progress Note ---
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 Continue pain regimen Follow-up morning labs Continue regular diet Likely discontinue fluids later today Depending on how patient feels and labs, may be able to go home later this afternoon. Will remove WOODROW drain prior to discharge. Patient will leave with Cornejo catheter in place. Admission and Anticipated Discharge Date Admission Date: December 22, 2021 Subjective No acute issues overnight. Patient still has expected abdominal pain. She has been afebrile with relatively stable vitals outside of some mildly soft blood pressures. She was able to ambulate yesterday and tolerate a regular diet. Serosanguineous output from WOODROW drain. Labs pending this morning. Review of Systems Review of Systems: 14 point review of systems negative outside of what is listed above in HPI Physical Exam Physical Exam: General: Alert and oriented, no acute distress HEENT: Normocephalic, mucous membranes moist Pulmonary: Nonlabored respirations Abdomen: Nondistended, soft, appropriately tender. Incisions clean dry and intact. WOODROW drain with serosanguineous output. : Cornejo catheter draining clear urine. Extremities: Moves all 4 spontaneously Neuro: No gross deficits Skin: Warm, dry, no rashes noted Results & Data ([facility]) Vital Signs (Past 12 Hours) Vital Signs Temp Pulse Resp BP Pulse Ox O2 Del Method 12/23/21 20:15 Room Air 12/23/21 20:15 36.9 C 74 18 126/69 93 Room Air PG Care Time/CCT Total # of Minutes Spent Total Time Spent with Patient: Total time spent is greater than 50% in coordination of care (as documented) at patient's floor/unit and/or counseling patient: Coding Level of Care Code 09054 Subseq Hosp Care Lvl 2 Diagnoses Transitional cell carcinoma C68.9
[2021-12-24 07:46] LABS: Basophils # (auto) 0.01 K/uL (0-0.2); Basophils % (auto) 0.2 %; Eosinophils # (auto) 0.22 K/uL (0-0.50); Eosinophils % (auto) 3.8 %; Hematocrit (blood only) 23.6 % (34.1-44.9); Hemoglobin 7.8 g/dl (12.0-16.0); Immature Granulocytes # (auto) 0.02 K/uL (0.00-0.02); Immature Granulocytes % (auto) 0.3 %; Lymphocytes # (auto) 0.83 K/uL (1.2-3.4); Lymphocytes % (auto) 14.4 %; Mean Corpuscular Hemoglobin 30.5 pg (25.0-34.0); Mean Corpuscular Hgb Conc 33.1 g/dL (32.0-36.0); Mean Corpuscular Volume 92.2 fL (80.0-100.0); Mean Platelet Volume 8.9 fL (9.4-12.3); Monocytes # (auto) 0.34 K/uL (0.24-0.82); Monocytes % (auto) 5.9 %; Neutrophils # (auto) 4.35 K/uL (1.4-6.5); Neutrophils % (auto) 75.4 %; Platelet Count 233 K/uL (130-400); RDW Coefficient of Variation 13.3 % (11.5-14.5); RDW Standard Deviation 45.1 fL (36.4-46.3); Red Blood Count 2.56 M/uL (3.93-5.22); White Blood Count 5.77 K/ul (4.8-10.8)
[2021-12-24 08:08] LABS: BUN Creatinine Ratio 11.5 (10-20); Creatinine Clr Calc Pharmacy 36.2 ml/min; Est GFR (African American) 48.5 ml/min; Est GFR (Non-African American) 41.8 ml/min; Potassium 3.7 mmol/L (3.5-5.1)
[2021-12-24 08:18] LABS: Polychromasia 1+
[2021-12-24] MEDS: BISOPROLOL FUMARATE 5 MG TAB PO SCH (09:56)
[2021-12-24] MEDS: hydrALAZINE TAB 50 MG TAB PO SCH (09:57)
[2021-12-24] MEDS: hydroCHLOROthiazide 25 MG TAB PO SCH (09:57)
[2021-12-24] MEDS: HEPARIN SOD 5,000 UNIT/0.5 ML VIAL SQ SCH (09:58)
[2021-12-24] MEDS: DOCUSATE SODIUM 100 MG CAP PO SCH (09:58)
--- NOTE | 2021-12-25 10:42 | Discharge Summary ---
Date of Service December 25, 2021 Admission HPI Per Admitting Provider 81-year-old female with a history of gross hematuria and a CT urogram concerning for an upper tract filling defect. She also does have a history of breast cancer. I took her to the OR during her hospitalization on 12/10/2021 for cystoscopy, right retrograde pyelogram, right ureteroscopy with biopsy. Intraoperative findings showed a normal bladder and urethra. There is a significant mount of clot in the right kidney did obscured view.There was clear papillary growths consistent with upper tract urothelial cell cancer and I took several photos of this. I took a urine cytology, a Piranha biopsy and a brush biopsy. I opted not to leave a stent in place. Pathology returned somewhat inconclusive. The results are listed below: Urine, "right upper pole/stent" of the right kidney (cytologic analysis): - A severely paucicellular specimen containing a few clusters of atypical urothelial cells is seen. - High-grade urothelial carcinoma cannot be excluded based on this specimen. - Please see microscopic description. Urine obtained from the right kidney (cytologic analysis): - Scattered, small papillary aggregates of atypical urothelial cells suspicious for high-grade urothelial carcinoma are seen. - Many red blood cells are noted. - Please see microscopic description. This urine specimen from the right kidney is prepared as a Papanicolaou stained ThinPrep. The ThinPrep reveals many red blood cells, lymphocytes, scattered PMN leukocytes, scattered benign urothelial cells, and a population of atypical urothelial cells primarily arranged in small papillary aggregates. The cells reveal nuclear to cytoplasmic ratios exceeding 0.7 and hyperchromasia is identified. On the other hand, the chromatinic rims are not irregular. Coarse chromatin is seen. There are not many of these atypical cells and they are primarily found in small papillary aggregates. Thus, the appropriate diagnoses is that these cells are suspicious for high-grade urothelial carcinoma. Kidney, right upper pole, biopsy: - Mildly atypical urothelium. - See comment. Comment: Review of the electronic health record notes an intraluminal mass in the right upper renal collecting system extending into the renal parenchyma on imaging. The current biopsy could be development representative of the surface of a low- grade papillary urothelial carcinoma or a papillary urothelial neoplasm of low malignant potential. The biopsy is not consistent with high-grade urothelial carcinoma. She was deemed stable for discharge the following day. She did require several blood transfusions prior to surgery. She returns today for preoperative appoi ntment. I independently reviewed her recent CT scan which shows no concern for metastatic disease. She reports that her hematuria has since resolved. Otherwise doing well. She does have a history of a laparotomy for a large ovarian cyst removal and an appendectomy. Admission Exam Per Admitting Provider General: Alert and oriented, no acute distress HEENT: Normocephalic, mucous membranes moist Pulmonary: Nonlabored respirations Abdomen: Nondistended Extremities: Moves all 4 spontaneously Neuro: No gross deficits Skin: Warm, dry, no rashes noted Principal Diagnosis Right upper tract urothelial cancer Discharge Exam General: Alert and oriented, no acute distress HEENT: Normocephalic, mucous membranes moist Pulmonary: Nonlabored respirations Abdomen: Nondistended, soft, appropriately tender. Incisions clean dry and intact. : Cornejo catheter draining clear urine. Extremities: Moves all 4 spontaneously Neuro: No gross deficits Skin: Warm, dry, no rashes noted Discharge Data Allergies Allergy/AdvReac Type Severity Reaction Status Date / Time terbinafine Allergy Intermediate rash Verified 12/22/21 06:15 lisinopril AdvReac Mild cough Verified 12/22/21 06:15 Procedures Performed Operation Date: 12/22/21 07:30 Actual Procedures p Robotic Laparoscopic Assisted Right Nephrourecterectomy (Right) - Joe Greco MD Hospital Course (1) Transitional cell carcinoma: Plan Patient underwent the above-noted procedure and was transferred to the floor in stable condition. Her labs remained relatively stable. Vitals were stable. Urine output was appropriate. WOODROW output was appropriate. She tolerated a diet and ambulated. She was deemed stable for discharge on postoperative day 2. Her WOODROW drain was removed. She will be discharged home with the catheter in place. 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 No tub baths or soaks. Sexual Activity: Wait until after follow-up appointment Exercise/Sports: Wait until after follow-up appointment Driving/Machine Use: Do not drive if taking prescription pain medication Non-emergency contact: Surgeon and Urologist Call non-emergency contact if: you have any medication questions, your pain is not controlled, your pain is worsening, you have a fever, your wound has increased redness, your wound has increased drainage and your wound pain has increased Follow-up/Referrals: Avi Ball MD [Primary Care Provider] - Vadim Martin MD [Physician] - 01/04/22 10:00 am [facility],Nurse [FAKE FOR SCHEDULES] - 12/29/21 1:45 pm Diet: Regular Addtl Attending Provider Instructions: You are scheduled for Cornejo catheter removal with a urology nurse on 12/29/21 at 1:45PM. You are scheduled to see Dr. Martin for follow-up on 01/04/22 at 10:00AM. Please get lab work including a CBC and BMP prior to that visit, orders have been placed. Please call our office at [phone] with any questions, concerns or need to reschedule appointments for any reason. We are happy to assist you. A prescription for pain medication and stool softener has been sent to your pharmacy. Recovering at home: We recommend having someone with you for the first few days after surgery to help care for you. It is okay to shower tomorrow. Please avoid swimming, bathing or using hot tub until incisions are well healed. Avoid driving until you are not requiring pain medication any further. Walk at least a few times a day. Increase your distance, as you feel able. S tairs in your home are okay. Please avoid strenuous or sexual activity until your follow-up. We recommend using stool softener (i.e. Colace) to prevent constipation and straining, especially the first two weeks post operatively. Call [facility] at [phone] if you experience: Chest pain or trouble breathing (call [phone] or go to the hospital). Fever of 101F or higher Symptoms of infection at incision site, including redness or swelling, warmth, or bad-smelling drainage If you have catheter, and you notice: o Bloody urine or drainage that is dark red or has large clots (Please remember a small amount of blood is normal) o No drainage from the catheter for more than 6 hours o The catheter comes out of your bladder Pain that is not controlled with medicines Pending Studies at Discharge: Yes (pathology) Stand-Alone Forms: My [facility], Opioid Pain Management, Smoking Cessation Medications and DC Order Prescriptions: New docusate sodium [Colace] 100 mg capsule 100 mg PO BID Qty: 30 0RF Rx Instructions: Take twice daily for 2 weeks, then as needed thereafter oxycodone 5 mg tablet 5 mg PO Q8H PRN (Reason: pain) Qty: 7 0RF Continued bisoprolol-hydrochlorothiazide 10-6.25 mg tablet 1 tab PO BID Qty: 180 3RF hydralazine 50 mg tablet 50 mg PO BID Qty: 180 2RF potassium chloride 20 mEq tablet extended release 20 meq PO QAM Qty: 90 3RF mecobalamin (vitamin B12) 1,000 mcg tablet,disintegrating 1,000 mcg sublingual HS Rx Instructions: place tablet under tongue and allow to dissolve for at least30 secs before swallowing tamoxifen 10 mg tablet 10 mg PO QPM calcium carbonate-vitamin D3 1 tab PO QPM cholecalciferol (vitamin D3) [Vitamin D3] 50 mcg (2,000 unit) Tablet 50 mcg PO QPM triamcinolone acetonide 0.1 % cream 1 appln TOP BID PRN (Reason: Skin Irritation) ferrous sulfate 325 mg (65 mg iron) Tablet 325 mg PO HS No Action atorvastatin 40 mg tablet 40 mg PO QPM Qty: 90 3RF Discharge Orders: Discharge Order (Routine); Ordered 12/24/21 Ordered By: Sabrina Cruz/Other Patient Handouts: DVT Post Op Prevention, Indwelling Urinary Catheter Dc, Leg Bag Care Dc Admission Data Admit Date/Time: 12/22/21 11:04 Attending Provider: Joe Greco Admit Provider: Joe Greco Primary Care Provider: Avi Ball V. Other Interventions: Discharge Summary Assessment (RN) Last Done: 12/24/21 15:26 Coding Level of Care Code D/C DAY MANAGEMENT <30 MINS Diagnoses Transitional cell carcinoma C68.9
== END 2021-12-24 17:03 | disposition home or self-care (01) | DRG 658 ==
LOC: ASU 05:47 → 3N 11:04